=== PATIENT | female | born 1940 | race Caucasian/White ===

== ENCOUNTER 2020-05-21 10:53 | Outpatient (REF) | payer MEDICARE, SELFPAY ==
[2020-05-21 12:40] LABS: MANUAL DIFF FLAG NO
[2020-05-21 12:50] LABS: Glucose Urine UA NEG (NEG); Leukocyte Esterase Urine 1+ (NEG); Nitrite Urine NEG (NEG); Urine Blood NEG (NEG); Urine Ketones NEG (NEG); Urine Protein NEG (NEG-TRACE)
[2020-05-21 12:52] LABS: Appearance Urine CLOUDY; Color Urine YELLOW
[2020-05-21 12:56] LABS: Basophils Percent Auto 0.4 % (0-2); Eosinophils Absolute Auto 0.3 X10*3/uL (0.0-0.4); Eosinophils Percent Auto 3.4 % (0-4); Hematocrit 41.1 % (37-47); Hemoglobin 12.4 g/dl (12.0-16.0); Imm Gran Abs Auto 0.06 X10*3/uL (0.00-0.03); Imm Gran Pct Auto 0.6 % (0.0-0.4); Lymphocytes Absolute Auto 2.4 X10*3/uL (1.2-4.9); Lymphocytes Percent Auto 25.1 % (20-40); Mean Corpuscular HGB Conc 30.2 g/dl (31.0-35.0); Mean Corpuscular Hemoglobin 27.1 pg (27.0-33.0); Mean Corpuscular Volume 89.7 fL (80-98); Mean Platelet Volume 11.8 fL (9.4-12.3); Monocytes Absolute Auto 0.6 X10*3/uL (0.1-1.2); Monocytes Percent Auto 6.2 % (2-11); Neutrophils Absolute Auto 6.1 X10*3/uL (2.0-8.3); Neutrophils Percent Auto 64.3 % (45-73); Platelet Count 272 X10*3/uL (160-400); Red Blood Count 4.58 X10*6/uL (4.20-5.50); Red Cell Distribution Width 13.4 % (11.0-16.0); White Blood Count 9.4 X10*3/uL (4.8-10.8)
[2020-05-21 13:17] LABS: Albumin Level 4.1 g/dL (3.5-5.0); Anion Gap 14 (12-20); Blood Urea Nitrogen 26 mg/dL (9-16); Calcium 8.8 mg/dL (8.4-10.2); Carbon Dioxide 25 mmol/L (22-29); Chloride 107 mmol/L (96-108); Estimated Glomerular Filt Rate 41; Magnesium 2.2 mg/dL (1.6-2.6); Phosphorus 3.2 mg/dL (2.7-4.5); Potassium 4.2 mmol/l (3.3-5.1); Sodium 142 mmol/L (135-145)
[2020-05-21 13:25] LABS: Hyaline Casts Urine 0-2 /LPF; RBC Urine 0 /HPF (0); Squamous Epithelial Cell Urine 1+ /LPF
== END 2020-05-21 10:54 | disposition home or self-care (01) ==
LOC: HO.LAB 10:53
PROVIDERS: PCP Family Medicine; Visit Provider Internal Medicine Hypertension Specialist
DX: N18.30 Chronic kidney disease, stage 3 unspecified (principal); N20.0 Calculus of kidney; E21.3 Hyperparathyroidism, unspecified
CPT/HCPCS: 36415; 80051; 81001; 82040; 82310; 82565; 83735; 84100; 84520; 85025

== ENCOUNTER 2020-09-09 09:49 | Outpatient (REF) | payer MEDICARE, SELFPAY ==
--- NOTE | ~2020-09-09 | MM_ITS ---
EXAMINATION: MM SCREENING DIGITAL BREAST TOMOSYNTHESIS, BILATERAL CLINICAL INFORMATION: Screening. Asymptomatic. The lifetime risk of breast cancer based on the Tyrer-Cuzick Model is 2%. COMPARISON: Mammography: 08/14/2019, 07/25/2018, 06/16/2017 TECHNIQUE: Digital breast tomosynthesis is performed in both the craniocaudal and mediolateral oblique views along with computer-aided detection (CAD). Synthesized 2D images are generated from the tomosynthesis. FINDINGS: There are scattered areas of fibroglandular density (ACR BI-RADS breast composition Category b). There are no significant masses, abnormal calcifications, or other abnormalities. Breast tissue composition borders on predominantly fatty. There is no developing density. No significant changes. MM/MM tomosynthesis screening BI IMPRESSION: No mammographic evidence of malignancy. ASSESSMENT: BI-RADS 1: Negative RECOMMENDATION: Routine annual mammography screening. This patient's information was entered into a reminder system with a target due date for their next mammogram.
== END 2020-09-09 09:50 | disposition home or self-care (01) ==
LOC: HO.MAMMO 09:49
PROVIDERS: PCP Family Medicine; Visit Provider Family Medicine
DX: Z12.31 Encounter for screening mammogram for malignant neoplasm of breast (principal)
CPT/HCPCS: 77063; 77067

== ENCOUNTER 2021-06-30 09:31 | Outpatient (REF) | payer MEDICARE, SELFPAY ==
[2021-06-30 09:59] LABS: MANUAL DIFF FLAG NO
[2021-06-30 10:28] LABS: Basophils Percent Auto 0.3 % (0-2); Eosinophils Absolute Auto 0.4 X10*3/uL (0.0-0.4); Eosinophils Percent Auto 3.7 % (0-4); Hematocrit 40.5 % (37.0-47.0); Hemoglobin 12.3 g/dl (12.0-16.0); Imm Gran Abs Auto 0.04 X10*3/uL (0.00-0.03); Imm Gran Pct Auto 0.4 % (0.0-0.4); Lymphocytes Absolute Auto 2.5 X10*3/uL (1.2-4.9); Mean Corpuscular HGB Conc 30.4 g/dl (31.0-35.0); Mean Corpuscular Hemoglobin 27.2 pg (27.0-33.0); Mean Corpuscular Volume 89.6 fL (80.0-98.0); Monocytes Absolute Auto 0.5 X10*3/uL (0.1-1.2); Monocytes Percent Auto 5.3 % (2-11); Neutrophils Absolute Auto 5.9 x10*3/uL (2.0-8.3); Neutrophils Percent Auto 63.3 % (45-73); Platelet Count 275 X10*3/uL (160-400); Red Blood Count 4.52 X10*6/uL (4.20-5.50); Red Cell Distribution Width 13.8 % (11.0-16.0); White Blood Count 9.4 X10*3/uL (4.8-10.8)
[2021-06-30 10:49] LABS: Estimated Average Glucose 117 mg/dL; Hemoglobin A1c % 5.7 %
[2021-06-30 10:56] LABS: Alanine Aminotransferase 12 U/L (0-31); Albumin Level 4.2 g/dL (3.5-5.0); Alkaline Phosphatase 94 U/L (39-117); Anion Gap 12 (12-20); Aspartate Amino Transferase 11 U/L (5-31); Bilirubin Total 0.5 mg/dL (0.0-1.0); Blood Urea Nitrogen 29 mg/dL (9-16); Calcium 10.1 mg/dL (8.4-10.2); Carbon Dioxide 27 mmol/L (22-29); Chloride 109 mmol/L (96-108); Cholesterol 181 mg/dL; Estimated Glomerular Filt Rate 40; Glucose Random 98 mg/dL (60-115); HDL Cholesterol 52 mg/dL; LDL Cholesterol Calculated 99 mg/dl; Potassium 4.4 mmol/L (3.3-5.1); Sodium 144 mmol/L (135-145); Total Protein 7.3 g/dL (6.5-8.0); Triglycerides 153 mg/dL
[2021-06-30 11:16] LABS: TSH reflex Free T4 2.47 uIU/mL (0.32-4.0); Vitamin D 25-OH Total 37.5 ng/mL (>30)
[2021-07-01 16:00] LABS: Calcium (PTHI) 9.5 mg/dL (8.6-10.4); PTHI 40 pg/mL (14-64)
== END 2021-06-30 09:32 | disposition home or self-care (01) ==
LOC: HO.LAB 09:31
PROVIDERS: PCP Family Medicine; Visit Provider Family Medicine
DX: E03.9 Hypothyroidism, unspecified (principal); I10 Essential (primary) hypertension; N18.30 Chronic kidney disease, stage 3 unspecified
CPT/HCPCS: 36415; 80053; 80061; 82306; 83036; 83970; 84443; 85025

== ENCOUNTER 2021-07-09 10:23 | Outpatient (REF) | payer MEDICARE, SELFPAY | END 2021-07-09 10:24 | disposition home or self-care (01) | LOC: HO.MAMMO 10:23 | PROVIDERS: Visit Provider Family Medicine | DX: Z13.89 Encounter for screening for other disorder (principal) ==

== ENCOUNTER 2021-08-12 13:14 | Outpatient (REF) | payer MEDICARE, SELFPAY ==
--- NOTE | ~2021-08-12 | MM_ITS ---
EXAMINATION: BONE DENSITOMETRY CLINICAL INDICATION: Encounter for screening for osteoporosis. COMPARISON: Previous BD dated 08/08/2019 and baseline BD dated 04/14/2007. TECHNIQUE: Using a [employer] DXA System (software version: 13.1) manufactured by [employer], dual-energy x-ray absorptiometry was performed of the lumbar spine and left hip. The images are of good technical quality. Summary results are attached. FINDINGS: AP SPINE L1-L4: Current: BMD 0.985 g/cm2, Z-score 0.0, T-score -1.6, osteopenia, 3.3% decrease from previous, 10.8% increase from baseline (<5% change is not significant). Prior: BMD 1.019 g/cm2. Baseline: BMD 0.889 g/cm2. LEFT FEMUR, NECK: Current: BMD 0.887 g/cm2, Z-score 1.0, T-score -1.1, osteopenia. Prior: BMD 0.742 g/cm2. Baseline: BMD 0.731 g/cm2. LEFT FEMUR, TOTAL: Current: BMD 0.838 g/cm2, Z-score 0.6, T-score -1.3, osteopenia, 3.3% decrease from previous, 0.8% increase from baseline (<5% change is not significant). Prior: BMD 0.867 g/cm2. Baseline: BMD 0.831 g/cm2. IDENTIFIED RISK FACTORS: Early menopause, secondary osteoporosis, low calcium intake. HISTORY OF FRACTURE: None listed. MEDICATIONS: Calcium supplements or multivitamin, vitamin D. MM/XR DEXA axial skeleton IMPRESSION: 1. DIAGNOSIS: Osteopenia based on the lowest T-score value of -1.6 in the lumbar spine applying World Health Organization criteria. 2. 10-YEAR FRACTURE RISK PREDICTION, FRAX: Major osteoporotic fracture (clinical spine, forearm, hip or shoulder) 6.6%. Hip fracture 1.3%. 3. Treatment Recommendations: NOF guidelines recommend consideration for treatment in postmenopausal women and men age 50 and older presenting with the following: -A hip or vertebral (clinical or morphometric) fracture. -T-score less than or equal to -2.5 at the femoral neck or spine after appropriate evaluation to exclude secondary causes. -Low bone mass at the hip or spine and a 10-year fracture probability by FRAX of greater than or equal to 3% for hip fracture or greater than or equal to 20% for major osteoporotic fracture based on the [place] adapted WHO algorithm. 4. Other Recommendations: All treatment decisions require clinical judgment and consideration of individual patient factors, including patient preferences, comorbidities, previous drug use, risk factors not captured in the FRAX model (e.g. frailty, falls, vitamin D deficiency, increased bone turnover, interval significant decline in bone density) and possible under or overestimation of fracture risk by FRAX. Additional medical evaluation for secondary cause of low bone mineral density may be appropriate. FUTURE SCAN RECOMMENDATION: People with diagnosed cases of osteoporosis or at high risk for fracture should have regular bone mineral density tests. For patients eligible for Medicare, routine testing is allowed once every 2 years. The testing frequency can be increased to one year for patients who have rapidly progressing disease, those who are receiving or discontinuing medical therapy to restore bone mass, or have additional risk factors.
== END 2021-08-12 13:15 | disposition home or self-care (01) ==
LOC: HO.MAMMO 13:14
PROVIDERS: Visit Provider Family Medicine
DX: Z13.820 Encounter for screening for osteoporosis (principal); M85.80 Other specified disorders of bone density and structure, unspecified site; Z78.0 Asymptomatic menopausal state; Z79.899 Other long term (current) drug therapy
CPT/HCPCS: 77080

== ENCOUNTER 2021-09-10 11:59 | Outpatient (REF) | payer MEDICARE, SELFPAY ==
--- NOTE | ~2021-09-10 | MM_ITS ---
EXAMINATION: MM SCREENING DIGITAL BREAST TOMOSYNTHESIS, BILATERAL CLINICAL INFORMATION: Screening. Asymptomatic. The lifetime risk of breast cancer based on the Tyrer-Cuzick Model is 2%. COMPARISON: Mammography: 09/09/2020, 07/27/2019, 07/25/2018 TECHNIQUE: Digital breast tomosynthesis is performed in both the craniocaudal and mediolateral oblique views along with computer-aided detection (CAD). Synthesized 2D images are generated from the tomosynthesis. Additional right cleavage view is provided. FINDINGS: There are scattered areas of fibroglandular density (ACR BI-RADS breast composition Category b). Breast tissue composition borders on predominantly fatty. Background stromal markings are stable. There are no significant masses, abnormal calcifications, or other abnormalities. No significant changes. MM/MM tomosynthesis screening BI IMPRESSION: No mammographic evidence of malignancy. ASSESSMENT: BI-RADS 1: Negative RECOMMENDATION: Routine annual mammography screening. This patient's information was entered into a reminder system with a target due date for their next mammogram.
== END 2021-09-10 12:00 | disposition home or self-care (01) ==
LOC: HO.MAMMO 11:59
PROVIDERS: Visit Provider Family Medicine
DX: Z12.31 Encounter for screening mammogram for malignant neoplasm of breast (principal)
CPT/HCPCS: 77063; 77067

== ENCOUNTER 2022-11-05 13:50 | Outpatient (REF) | payer MEDICARE, SELFPAY ==
--- NOTE | ~2022-11-05 | MM_ITS ---
EXAMINATION: MM SCREENING DIGITAL BREAST TOMOSYNTHESIS, BILATERAL CLINICAL INFORMATION: Screening. Asymptomatic. The lifetime risk of breast cancer based on the Tyrer-Cuzick Model is 2%. COMPARISON: Mammography: 09/10/2021, 09/09/2020, 07/27/2019 TECHNIQUE: Digital breast tomosynthesis is performed in both the craniocaudal and mediolateral oblique views along with computer-aided detection (CAD). Synthesized 2D images are generated from the tomosynthesis. FINDINGS: There are scattered areas of fibroglandular density (ACR BI-RADS breast composition Category b). Breast tissue composition borders on predominantly fatty. No developing density or architectural abnormality. There are no significant masses, abnormal calcifications, or other abnormalities. There are scattered bilateral predominantly vascular calcifications. The axilla and skin contours are unremarkable. MM/MM tomosynthesis screening BI IMPRESSION: No mammographic evidence of malignancy. ASSESSMENT: BI-RADS 1: Negative RECOMMENDATION: Routine annual mammography screening. This patient's information was entered into a reminder system with a target due date for their next mammogram.
== END 2022-11-05 13:51 | disposition home or self-care (01) ==
LOC: HO.MAMMO 13:50
PROVIDERS: Visit Provider Family Medicine
DX: Z12.31 Encounter for screening mammogram for malignant neoplasm of breast (principal)
CPT/HCPCS: 77063; 77067

== ENCOUNTER 2023-03-15 16:19 | Outpatient (REF) | payer OTHER, SELFPAY ==
[2023-03-15 17:51] LABS: Anion Gap 13 (12-20); Blood Urea Nitrogen 26 mg/dL (9-16); Calcium 10.1 mg/dL (8.4-10.2); Carbon Dioxide 28 mmol/L (22-29); Chloride 105 mmol/L (96-108); Estimated Glomerular Filt Rate 41; Glucose Random 87 mg/dL (60-115); Sodium 142 mmol/L (135-145)
[2023-03-15 17:53] LABS: Vitamin D 25-OH Total 50.4 ng/mL (>30)
[2023-03-16 14:13] LABS: Calcium (PTHI) 9.9 mg/dL (8.6-10.4); PTHI 31 pg/mL (16-77)
== END 2023-03-15 16:20 | disposition home or self-care (01) ==
LOC: HO.LAB 16:19
PROVIDERS: PCP Family Medicine; Visit Provider Internal Medicine Hypertension Specialist
DX: N18.31 Chronic kidney disease, stage 3a (principal)
CPT/HCPCS: 36415; 80048; 82306; 83970

== ENCOUNTER 2023-08-18 13:04 | Outpatient (REF) | payer OTHER, SELFPAY ==
--- NOTE | ~2023-08-18 | XR_ITS ---
EXAMINATION: XR CHEST CLINICAL INFORMATION: Asthma, cough, wheezing, evaluate for pneumonia. COMPARISON: Chest radiograph 10/16/2018. TECHNIQUE: 2 views of the chest were obtained. FINDINGS: Normal appearance of the cardiomediastinal silhouette. Mild central peribronchial cuffing and minimal diffuse interstitial prominence are not significantly changed. No focal consolidation, pleural effusion or pneumothorax. Thoracic spondylosis. No acute osseous findings. XR/XR chest 2V IMPRESSION: Mild chronic interstitial prominence which is nonspecific and could be seen with small airways disease.
== END 2023-08-18 13:05 | disposition home or self-care (01) ==
LOC: HO.XRAY 13:04
PROVIDERS: PCP Family Medicine; Visit Provider Family Medicine
DX: R05.1 Acute cough (principal); R06.2 Wheezing
CPT/HCPCS: 71046

== ENCOUNTER 2023-09-10 13:12 | Outpatient (REF) | payer OTHER, SELFPAY ==
--- NOTE | ~2023-09-10 | MM_ITS ---
EXAMINATION: BONE DENSITOMETRY CLINICAL INDICATION: Other specified disorders of bone density and structure, unspecified site. COMPARISON: Previous BD dated 08/12/2021 and baseline BD dated 04/14/2007. TECHNIQUE: Using a [employer] DXA System (software version: 13.1) manufactured by [employer], dual-energy x-ray absorptiometry was performed of the lumbar spine and left hip. The images are of good technical quality. Summary results are attached. FINDINGS: LEFT FEMUR, NECK: Current: BMD 0.742 g/cm2, Z-score 0.1, T-score -2.1, osteopenia. Prior: BMD 0.887 g/cm2. Baseline: BMD 0.731 g/cm2. LEFT FEMUR, TOTAL: Current: BMD 0.811 g/cm2, Z-score 0.6, T-score -1.6, osteopenia, 3.2% decrease from previous, 2.4% decrease from baseline (<5% change is not significant). Prior: BMD 0.838 g/cm2. Baseline: BMD 0.831 g/cm2. AP SPINE L1-L4: Current: BMD 1.003 g/cm2, Z-score 0.4, T-score -1.5, osteopenia, 1.8% increase from previous, 12.8% increase from baseline (<5% change is not significant). Prior: BMD 0.985 g/cm2. Baseline: BMD 0.889 g/cm2. IDENTIFIED RISK FACTORS: Early menopause, secondary osteoporosis, low body weight, low calcium intake. HISTORY OF FRACTURE: None listed. MEDICATIONS: Calcium supplements or multivitamin, vitamin D. MM/XR DEXA axial skeleton IMPRESSION: 1. DIAGNOSIS: Osteopenia based on the lowest T-score value of -2.1 in the femoral neck applying World Health Organization criteria. 2. 10-YEAR FRACTURE RISK PREDICTION, FRAX: Major osteoporotic fracture (clinical spine, forearm, hip or shoulder) 9.8%. Hip fracture 3.0%. 3. Treatment Recommendations: NOF guidelines recommend consideration for treatment in postmenopausal women and men age 50 and older presenting with the following: -A hip or vertebral (clinical or morphometric) fracture. -T-score less than or equal to -2.5 at the femoral neck or spine after appropriate evaluation to exclude secondary causes. -Low bone mass at the hip or spine and a 10-year fracture probability by FRAX of greater than or equal to 3% for hip fracture or greater than or equal to 20% for major osteoporotic fracture based on the [place] adapted WHO algorithm. 4. Other Recommendations: All treatment decisions require clinical judgment and consideration of individual patient factors, including patient preferences, comorbidities, previous drug use, risk factors not captured in the FRAX model (e.g. frailty, falls, vitamin D deficiency, increased bone turnover, interval significant decline in bone density) and possible under or overestimation of fracture risk by FRAX. Additional medical evaluation for secondary cause of low bone mineral density may be appropriate. FUTURE SCAN RECOMMENDATION: People with diagnosed cases of osteoporosis or at high risk for fracture should have regular bone mineral density tests. For patients eligible for Medicare, routine testing is allowed once every 2 years. The testing frequency can be increased to one year for patients who have rapidly progressing disease, those who are receiving or discontinuing medical therapy to restore bone mass, or have additional risk factors.
== END 2023-09-10 13:13 | disposition home or self-care (01) ==
LOC: HO.MAMMO 13:12
PROVIDERS: PCP Family Medicine; Visit Provider Family Medicine
DX: Z13.820 Encounter for screening for osteoporosis (principal); M85.89 Other specified disorders of bone density and structure, multiple sites; Z78.0 Asymptomatic menopausal state
CPT/HCPCS: 77080

== ENCOUNTER 2023-10-21 11:33 | Outpatient (AMB) | payer OTHER, SELFPAY ==
[2023-10-21 11:36] VITALS: BP 152/70; PULSE 80; O2SAT 96
--- NOTE | 2023-10-21 11:36 | HO.NEPHOV_ITS ---
HPI HPI Comments History of Present Illness Details Elderly woman with a history of longstanding hypertension nephrolithiasis. She is here for regular follow-up. Today she was accompanied by family members. No new complaints. No urinary symptoms. She is compliant with all her medications. [facility] Medical History (Updated 10/21/23 @ 12:04 by Jae Avina MD) History of kidney stones Osteoporosis Bilateral cataracts Asthma Chronic kidney disease, stage 3 Hyperparathyroidism Hypercholesterolemia HTN (hypertension) History of CVA (cerebrovascular accident) Family History (Updated 10/21/23 @ 12:04 by Jae Avina MD) Other HTN (hypertension) History of kidney stones Social History (Updated 10/21/23 @ 11:39 by Sophia Ryder) Alcohol intake: never Use of substances other than those prescribed or required for medical reasons: No Vital Signs 10/21/23 11:36 10/21/23 12:05 Weight 169 lb BP 152/70 H 140/60 H Blood Pressure Location Lt brachial Lt brachial Position Sitting Sitting Pulse 80 Pulse Source Pulse Oximeter Pulse Oximetry (%) 96 Oxygen Delivery Method Room Air Physical Exam Vital Signs: Last Vital Signs Pulse 80 10/21/23 11:36 BP 152/70 H 10/21/23 11:36 Pulse Ox 96 10/21/23 11:36 Oxygen Delivery Method Room Air 10/21/23 11:36 Const General: comfortable Nutritional Appearance: well nourished Orientation/consciousness: patient oriented x3 HEENT Head: No normal to inspection Mouth: moist mucous membranes Neck Neck: Yes supple and Yes no JVD Resp Auscultation: clear to auscultation bilaterally, no rales and rub present Cardio Jugular venous distension: no JVD Palpation: no palpable S3 and no palpable S4 Heart sounds: no rubs GI Palpation (GI): Soft to palpation and nontender Percussion: No Fluid wave present General: Yes no CVA tenderness Back/Spine/Pelvis Back: no CVA tenderness Skin General skin exam: no rashes or lesions noted Neuro General: patient oriented x3 Extrem General: Yes no pedal edema and No clubbing Assessment & Plan Assessment & Plan (1) Chronic kidney disease, stage 3: Code(s): N18.30 - Chronic kidney disease, stage 3 unspecified Plan Elderly woman with a history of stage III CKD in a setting of longstanding hypertension nephrolithiasis. She has had hyperparathyroidism with elevated serum calcium in the past. Repeat renal panel in order along with intact PTH and phosphorus levels. She should stay on low-sodium diet. Increase p.o. fluid. Blood pressure be maintained less than 130/80 mm Hg. No changes were made to medications and further workup will be based on the above reason investigations. Orders: Orders Phosphorus Today N18.30 - Chronic kidney disease, stage 3 unspecified Basic Metabolic Panel Today N18.30 - Chronic kidney disease, stage 3 unspecified Complete Blood Count no Diff Today N18.30 - Chronic kidney disease, stage 3 unspecified Parathyroid Hormone Intact Today N18.30 - Chronic kidney disease, stage 3 unspecified Coding Level of Care Code Est Pt Level 4 (57707) Diagnoses Chronic kidney disease, stage 3 N18.30 Results Reviewed Nephrology Results: Hgb 12.3 g/dl (12.0-16.0) 06/30/21 WBC 9.4 X10*3/uL (4.8-10.8) 06/30/21 Plt Count 275 X10*3/uL (160-400) 06/30/21 Sodium 142 mmol/L (135-145) 03/15/23 Potassium 4.0 mmol/L (3.3-5.1) 03/15/23 Chloride 105 mmol/L (96-108) 03/15/23 Carbon Dioxide 28 mmol/L (22-29) 03/15/23 BUN 26 mg/dL (9-16) H 03/15/23 Creatinine 1.26 mg/dL (0.5-1.4) 03/15/23 Calcium 10.1 mg/dL (8.4-10.2) 03/15/23 Phosphorus 3.2 mg/dL (2.7-4.5) 05/21/20 PTH Intact 31 pg/mL (16-77) 03/15/23 Urine Protein NEG MG/DL (NEG-TRACE) 05/21/20
[2023-10-21 12:05] VITALS: BP 140/60
== END 2023-10-21 12:05 | disposition home or self-care (01) ==
PROVIDERS: PCP Family Medicine; Visit Provider Internal Medicine Hypertension Specialist
DX: N18.30 Chronic kidney disease, stage 3 unspecified (principal)
CPT/HCPCS: 99214

== ENCOUNTER 2023-10-21 11:33 | Outpatient (REF) | payer OTHER, SELFPAY ==
[2023-10-21 14:00] LABS: Hematocrit 39.6 % (37.0-47.0); Hemoglobin 12.5 g/dl (12.0-16.0); Mean Corpuscular HGB Conc 31.6 g/dl (31.0-35.0); Mean Corpuscular Hemoglobin 27.7 pg (27.0-33.0); Mean Corpuscular Volume 87.6 fL (80.0-98.0); Mean Platelet Volume 11.2 fL (9.4-12.3); Platelet Count 264 X10*3/uL (160-400); Red Blood Count 4.52 X10*6/uL (4.20-5.50); Red Cell Distribution Width 14.2 % (11.0-16.0); White Blood Count 12.2 X10*3/uL (4.8-10.8)
[2023-10-21 14:26] LABS: Anion Gap 17 (12-20); Blood Urea Nitrogen 27 mg/dL (9-16); Calcium 9.9 mg/dL (8.4-10.2); Carbon Dioxide 26 mmol/L (22-29); Chloride 104 mmol/L (96-108); Estimated Glomerular Filt Rate 52; Glucose Random 86 mg/dL (60-115); Phosphorus 4.1 mg/dL (2.7-4.5); Potassium 4.6 mmol/L (3.3-5.1); Sodium 142 mmol/L (135-145)
[2023-10-21 14:30] LABS: Parathyroid Hormone Intact 47.4 pg/mL (8.7-77.1)
== END 2023-10-21 11:34 | disposition home or self-care (01) ==
LOC: HO.LAB 11:33
PROVIDERS: PCP Family Medicine; Visit Provider Internal Medicine Hypertension Specialist
DX: I12.9 Hypertensive chronic kidney disease with stage 1 through stage 4 chronic kidney disease, or unspecified chronic kidney disease (principal); N20.0 Calculus of kidney; N18.30 Chronic kidney disease, stage 3 unspecified
CPT/HCPCS: 36415; 80048; 83970; 84100; 85027; 99212

== ENCOUNTER 2023-11-11 09:56 | Outpatient (REF) | payer OTHER, SELFPAY | END 2023-11-11 09:57 | disposition home or self-care (01) | LOC: HO.MAMMO 09:56 | PROVIDERS: PCP Family Medicine; Visit Provider Family Medicine | DX: Z12.31 Encounter for screening mammogram for malignant neoplasm of breast (principal) | CPT/HCPCS: 77063; 77067 ==

== ENCOUNTER → 2023-11-11 10:00 | Outpatient (BNV) | payer OTHER, SELFPAY | PROVIDERS: PCP Family Medicine; Visit Provider Radiology Diagnostic Radiology | DX: Z12.31 Encounter for screening mammogram for malignant neoplasm of breast (principal) | CPT/HCPCS: 77063; 77067 ==

== ENCOUNTER 2023-11-17 08:59 | Outpatient (REF) | payer OTHER, SELFPAY ==
[2023-11-17 09:13] LABS: MANUAL DIFF FLAG NO
[2023-11-17 09:55] LABS: Basophils Percent Auto 0.4 % (0-2); Eosinophils Absolute Auto 0.3 X10*3/uL (0.0-0.4); Eosinophils Percent Auto 3.2 % (0-4); Hematocrit 40.5 % (37.0-47.0); Hemoglobin 12.5 g/dl (12.0-16.0); Imm Gran Abs Auto 0.05 X10*3/uL (0.00-0.03); Imm Gran Pct Auto 0.5 % (0.0-0.4); Lymphocytes Absolute Auto 2.8 X10*3/uL (1.2-4.9); Lymphocytes Percent Auto 26.6 % (20-40); Mean Corpuscular HGB Conc 30.9 g/dl (31.0-35.0); Mean Corpuscular Hemoglobin 27.7 pg (27.0-33.0); Mean Corpuscular Volume 89.6 fL (80.0-98.0); Mean Platelet Volume 11.4 fL (9.4-12.3); Monocytes Absolute Auto 0.7 X10*3/uL (0.1-1.2); Monocytes Percent Auto 6.6 % (2-11); Neutrophils Absolute Auto 6.7 x10*3/uL (2.0-8.3); Neutrophils Percent Auto 62.7 % (45-73); Platelet Count 267 X10*3/uL (160-400); Red Blood Count 4.52 X10*6/uL (4.20-5.50); White Blood Count 10.6 X10*3/uL (4.8-10.8)
[2023-11-17 10:10] LABS: Estimated Average Glucose 123 mg/dL; Hemoglobin A1c % 5.9 % (<6.0)
[2023-11-17 10:36] LABS: Cholesterol 167 mg/dL (<200); HDL Cholesterol 68 mg/dL (>40); LDL Cholesterol Calculated 84 mg/dL (<100); Triglycerides 78 mg/dL (<150)
[2023-11-17 10:50] LABS: Reflex LDLD? No
[2023-11-17 10:52] LABS: TSH reflex Free T4 1.64 uIU/mL (0.32-4.0)
== END 2023-11-17 09:00 | disposition home or self-care (01) ==
LOC: HO.LAB 08:59
PROVIDERS: PCP Family Medicine; Visit Provider Family Medicine
DX: E03.9 Hypothyroidism, unspecified (principal); E78.00 Pure hypercholesterolemia, unspecified
CPT/HCPCS: 36415; 80061; 83036; 84443; 85025

== ENCOUNTER 2024-02-14 12:32 | Outpatient (REF) | payer OTHER, SELFPAY ==
[2024-02-14 13:41] LABS: Hematocrit 39.4 % (37.0-47.0); Hemoglobin 12.2 g/dl (12.0-16.0); Mean Corpuscular Hemoglobin 27.7 pg (27.0-33.0); Mean Corpuscular Volume 89.5 fL (80.0-98.0); Mean Platelet Volume 11.6 fL (9.4-12.3); Platelet Count 246 X10*3/uL (160-400); Red Cell Distribution Width 13.9 % (11.0-16.0); White Blood Count 9.5 X10*3/uL (4.8-10.8)
[2024-02-14 14:07] LABS: Alanine Aminotransferase 10 U/L (0-31); Albumin Level 4.2 g/dL (3.5-5.0); Alkaline Phosphatase 89 U/L (39-117); Anion Gap 12 (12-20); Aspartate Amino Transferase 10 U/L (5-31); Bilirubin Total 0.3 mg/dL (0.0-1.0); Blood Urea Nitrogen 30 mg/dL (9-16); Calcium 9.7 mg/dL (8.4-10.2); Carbon Dioxide 27 mmol/L (22-29); Chloride 107 mmol/L (96-108); Estimated Glomerular Filt Rate 37; Glucose Random 95 mg/dL (60-115); Potassium 4.3 mmol/L (3.3-5.1); Sodium 142 mmol/L (135-145); Total Protein 7.3 g/dL (6.5-8.0)
[2024-02-14 14:24] LABS: Free T4 (Free Thyroxine) 1.06 ng/dL (0.71-1.85); Thyroid Stimulating Hormone 0.85 uIU/mL (0.32-4.0)
== END 2024-02-14 12:33 | disposition home or self-care (01) ==
LOC: HO.LAB 12:32
PROVIDERS: PCP Family Medicine; Visit Provider Student in an Organized Health Care Education/Training Program
DX: R53.83 Other fatigue (principal)
CPT/HCPCS: 36415; 80053; 84439; 84443; 85027

== ENCOUNTER 2024-02-21 11:38 | Outpatient (AMB) | payer OTHER, SELFPAY ==
[2024-02-21 11:39] VITALS: BP 136/70; PULSE 71; O2SAT 96
--- NOTE | 2024-02-21 11:39 | HO.NEPHOV_ITS ---
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 Associate Professor Of Archaeology Name: Carla [id number] Accompanied by: Son Allergies ciprofloxacin [From Cipro] Allergy (Severe, Verified 02/21/24 11:43) RASH Iodinated Contrast Media [IV Dye, Iodine Containing] Allergy (Intermediate, Verified 02/21/24 11:43) RASH, ITCHY penicillin V Allergy (Mild, Verified 02/21/24 11:43) Unknown Medication List - Last Reconciled 02/21/24 by Jae Avina MD albuterol sulfate 90 mcg/actuation inhalation aspirin 81 mg PO DAILY atorvastatin 10 mg PO DAILY cholecalciferol (vitamin D3) (Vitamin D3) 25 mcg PO DAILY levothyroxine 50 mcg PO DAILY losartan 50 mg PO DAILY metoprolol succinate ER 50 mg PO DAILY HPI Comments Details: Elderly woman with a history of longstanding hypertension nephrolithiasis. She is here for regular follow-up. Today she was accompanied by family members. No new complaints. No urinary symptoms. She is compliant with all her medications. Interpretor service was used [facility] Medical History (Updated 10/21/23 @ 12:04 by Jae Avina MD) History of kidney stones Osteoporosis Bilateral cataracts Asthma Chronic kidney disease, stage 3 Hyperparathyroidism Hypercholesterolemia HTN (hypertension) History of CVA (cerebrovascular accident) Family History Other HTN (hypertension) History of kidney stones Social History Alcohol intake: never Physical Exam Vital Signs: Last Vital Signs Pulse 71 02/21/24 11:39 BP 136/70 02/21/24 11:39 Pulse Ox 96 02/21/24 11:39 Oxygen Delivery Method Room Air 02/21/24 11:39 Const General: comfortable; No acute distress Orientation/consciousness: patient oriented x3 Eyes General: appearance normal, both eyes and all related structures Visual Person: normal visual person by confrontation Neck Neck: Yes supple and Yes no JVD Resp Effort & Inspection: normal respiratory effort and respiratory effort not decreased Auscultation: rhonchi Cardio Palpation: no palpable S3 and no palpable S4 Heart sounds: no rubs GI Inspection: Yes normal to inspection Palpation (GI): Soft to palpation Percussion: Yes normal to percussion Auscultation: normal bowel sounds General: Yes no CVA tenderness Back/Spine/Pelvis Back: no CVA tenderness Skin General skin exam: no petechiae and no purpura Neuro General: patient oriented x3 and no focal motor deficits Extrem General: No clubbing and No edema Results Reviewed Nephrology Results: Hgb 12.2 g/dl (12.0-16.0) 02/14/24 WBC 9.5 X10*3/uL (4.8-10.8) 02/14/24 Plt Count 246 X10*3/uL (160-400) 02/14/24 Sodium 142 mmol/L (135-145) 02/14/24 Potassium 4.3 mmol/L (3.3-5.1) 02/14/24 Chloride 107 mmol/L (96-108) 02/14/24 Carbon Dioxide 27 mmol/L (22-29) 02/14/24 BUN 30 mg/dL (9-16) H 02/14/24 Creatinine 1.36 mg/dL (0.5-1.4) 02/14/24 Calcium 9.7 mg/dL (8.4-10.2) 02/14/24 Phosphorus 4.1 mg/dL (2.7-4.5) 10/21/23 PTH Intact 47.4 pg/mL (8.7-77.1) 10/21/23 Urine Protein Negative mg/dL (Neg-Trace) 02/21/24 Urine Creatinine 79.76 mg/dL 02/21/24 Assessment & Plan Assessment & Plan (1) Chronic kidney disease, stage 3: Code(s): N18.30 - Chronic kidney disease, stage 3 unspecified Category: Medical (2) Hyperparathyroidism: Code(s): E21.3 - Hyperparathyroidism, unspecified Category: Medical (3) History of kidney stones: Comment: surgery for removal of stones in [place] Code(s): Z87.442 - Personal history of urinary calculi Category: Medical Plan Elderly woman with a history of stage III CKD in a setting of longstanding hypertension nephrolithiasis. She has had hyperparathyroidism with elevated serum calcium in the past. She should stay on low-sodium diet. Increase p.o. fluid. Blood pressure be maintained less than 130/80 mm Hg. Orders: Orders Creatinine Urine Today E21.3 - Hyperparathyroidism, unspecified, N18.30 - Chronic kidney disease, stage 3 unspecified, Z87.442 - Personal history of urinary calculi Total Protein Urine Random Today E21.3 - Hyperparathyroidism, unspecified, N18.30 - Chronic kidney disease, stage 3 unspecified, Z87.442 - Personal history of urinary calculi Parathyroid Hormone Intact 4 Months E21.3 - Hyperparathyroidism, unspecified, N18.30 - Chronic kidney disease, stage 3 unspecified, Z87.442 - Personal history of urinary calculi UA and rflx microscopic Today E21.3 - Hyperparathyroidism, unspecified, N18.30 - Chronic kidney disease, stage 3 unspecified, Z87.442 - Personal history of urinary calculi Basic Metabolic Panel 4 Months E21.3 - Hyperparathyroidism, unspecified, N18.30 - Chronic kidney disease, stage 3 unspecified, Z87.442 - Personal history of urinary calculi Coding Level of Care Code Est Pt Level 4 (07353) Diagnoses Chronic kidney disease, stage 3 N18.30 Hyperparathyroidism E21.3 History of kidney stones Z87.442
== END 2024-02-21 11:56 | disposition home or self-care (01) ==
PROVIDERS: PCP Family Medicine; Visit Provider Internal Medicine Hypertension Specialist
DX: N18.30 Chronic kidney disease, stage 3 unspecified (principal); E21.3 Hyperparathyroidism, unspecified; Z87.442 Personal history of urinary calculi
CPT/HCPCS: 99214

== ENCOUNTER 2024-02-21 12:27 | Outpatient (REF) | payer OTHER, SELFPAY ==
[2024-02-21 13:28] LABS: Appearance Urine Clear; Color Urine Yellow; Glucose Urine UA Negative (Negative); Leukocyte Esterase Urine Moderate (2+) (Negative); Nitrite Urine Negative (Negative); PH 5.5 (5.0-9.0); Specific Gravity - Urine 1.015 (1.005-1.025); UMIC TRIGGER UA YES; Urine Blood Negative (Negative); Urine Ketones Negative (Negative); Urine Protein Negative (Neg-Trace)
[2024-02-21 13:35] LABS: Bacteria Urine None Seen (None Seen); Hyaline Casts Urine 0-2 /LPF (0-2); RBC Urine 0-2 /HPF (0-2)
[2024-02-21 14:42] LABS: Creatinine Urine 79.76 mg/dL; Total Protein Urine Random < 7 mg/dL (<12)
== END 2024-02-21 12:28 | disposition home or self-care (01) ==
LOC: HO.10HDL 12:27
PROVIDERS: Visit Provider Internal Medicine Hypertension Specialist
DX: I12.9 Hypertensive chronic kidney disease with stage 1 through stage 4 chronic kidney disease, or unspecified chronic kidney disease (principal); N18.30 Chronic kidney disease, stage 3 unspecified; E21.3 Hyperparathyroidism, unspecified; Z87.442 Personal history of urinary calculi
CPT/HCPCS: 81001; 82570; 84156; 99212

== ENCOUNTER 2024-06-19 11:04 | Outpatient (AMB) | payer OTHER, SELFPAY ==
[2024-06-19 11:08] VITALS: BP 150/72; PULSE 77; O2SAT 93
--- NOTE | 2024-06-19 11:08 | HO.NEPHOV_ITS ---
Vital Signs 06/19/24 11:08 06/19/24 11:16 Weight 174 lb BP 150/72 H 140/80 H Blood Pressure Location Rt brachial Rt brachial Position Sitting Sitting Pulse 77 Pulse Source Pulse Oximeter Pulse Oximetry (%) 93 Oxygen Delivery Method Room Air Intake Visit Reasons: CKD STG3/ Conf Electric Tape Slitter Required: Yes Electric Tape Slitter Name: [id number] [place] Accompanied by: Son Allergies ciprofloxacin [From Cipro] Allergy (Severe, Verified 06/19/24 11:10) RASH Iodinated Contrast Media [IV Dye, Iodine Containing] Allergy (Intermediate, Verified 06/19/24 11:10) RASH, ITCHY penicillin V Allergy (Mild, Verified 06/19/24 11:10) Unknown Medication List - Last Reconciled 06/19/24 by Jae Avina MD albuterol sulfate 90 mcg/actuation inhalation aspirin 81 mg PO DAILY atorvastatin 10 mg PO DAILY cholecalciferol (vitamin D3) (Vitamin D3) 25 mcg PO DAILY levothyroxine 50 mcg PO DAILY losartan 100 mg PO DAILY metoprolol succinate ER 50 mg PO DAILY HPI Comments Details: Elderly woman with a history of longstanding hypertension nephrolithiasis. She is here for regular follow-up. Today she was accompanied by family members. No new complaints. No urinary symptoms. She is compliant with all her medications. Interpretor service was used [facility] Medical History (Updated 10/21/23 @ 12:04 by Jae Avina MD) History of kidney stones Osteoporosis Bilateral cataracts Asthma Chronic kidney disease, stage 3 Hyperparathyroidism Hypercholesterolemia HTN (hypertension) History of CVA (cerebrovascular accident) Family History Other HTN (hypertension) History of kidney stones Social History Alcohol intake: never Physical Exam Vital Signs: Last Vital Signs Pulse 77 06/19/24 11:08 BP 140/80 H 06/19/24 11:16 Pulse Ox 93 06/19/24 11:08 Oxygen Delivery Method Room Air 06/19/24 11:08 Comfortable Neck supple no JVD. Lungs entry equal no rales. Heart S1-S2 heard no gallop or rub. Abdomen soft nontender. Neuro alert awake oriented. No asterixis. Extremities no edema. Results Reviewed Nephrology Results: Hgb 12.2 g/dl (12.0-16.0) 02/14/24 WBC 9.5 X10*3/uL (4.8-10.8) 02/14/24 Plt Count 246 X10*3/uL (160-400) 02/14/24 Sodium 142 mmol/L (135-145) 02/14/24 Potassium 4.3 mmol/L (3.3-5.1) 02/14/24 Chloride 107 mmol/L (96-108) 02/14/24 Carbon Dioxide 27 mmol/L (-) 02/14/24 BUN 30 mg/dL (9-16) H 02/14/24 Creatinine 1.36 mg/dL (0.5-1.4) 02/14/24 Calcium 9.7 mg/dL (8.4-10.2) 02/14/24 Phosphorus 4.1 mg/dL (2.7-4.5) 10/21/23 PTH Intact 47.4 pg/mL (8.7-77.1) 10/21/23 Urine Protein Negative mg/dL (Neg-Trace) 02/21/24 Urine Creatinine 79.76 mg/dL 02/21/24 Assessment & Plan Assessment & Plan (1) Chronic kidney disease, stage 3: Code(s): N18.30 - Chronic kidney disease, stage 3 unspecified Category: Medical (2) Hyperparathyroidism: Code(s): E21.3 - Hyperparathyroidism, unspecified Category: Medical (3) History of kidney stones: Comment: surgery for removal of stones in [place] Code(s): Z87.442 - Personal history of urinary calculi Category: Medical Plan Elderly woman with a history of stage III CKD in a setting of longstanding hypertension nephrolithiasis. She has had hyperparathyroidism with elevated serum calcium in the past. She should stay on low-sodium diet. Increase p.o. fluid. Blood pressure be maintained less than 130/80 mm Hg. Orders: Orders Basic Metabolic Panel 4 Months N18.30 - Chronic kidney disease, stage 3 unspecified Complete Blood Count Auto Diff 4 Months N18.30 - Chronic kidney disease, stage 3 unspecified Coding Level of Care Code Est Pt Level 4 (72699) Diagnoses Chronic kidney disease, stage 3 N18.30 Hyperparathyroidism E21.3 History of kidney stones Z87.442
[2024-06-19 11:16] VITALS: BP 140/80
== END 2024-06-19 11:18 | disposition home or self-care (01) ==
PROVIDERS: PCP Family Medicine; Visit Provider Internal Medicine Hypertension Specialist
DX: N18.30 Chronic kidney disease, stage 3 unspecified (principal); E21.3 Hyperparathyroidism, unspecified; Z87.442 Personal history of urinary calculi
CPT/HCPCS: 99214

== ENCOUNTER → 2024-06-19 11:04 | Outpatient (BNVA) | payer OTHER, SELFPAY | PROVIDERS: PCP Family Medicine; Visit Provider Internal Medicine Hypertension Specialist | DX: N18.30 Chronic kidney disease, stage 3 unspecified (principal); I12.9 Hypertensive chronic kidney disease with stage 1 through stage 4 chronic kidney disease, or unspecified chronic kidney disease; E21.3 Hyperparathyroidism, unspecified; Z87.442 Personal history of urinary calculi | CPT/HCPCS: 99212 ==

== ENCOUNTER 2024-10-05 10:23 | Outpatient (REF) | payer OTHER, SELFPAY ==
[2024-10-05 10:41] LABS: MANUAL DIFF FLAG NO
[2024-10-05 11:11] LABS: Basophils Absolute Auto 0.1 X10*3/uL (0.0-0.2); Basophils Percent Auto 0.5 % (0-2); Eosinophils Absolute Auto 0.3 X10*3/uL (0.0-0.4); Eosinophils Percent Auto 3.1 % (0-4); Hematocrit 39.9 % (37.0-47.0); Hemoglobin 12.6 g/dl (12.0-16.0); Imm Gran Abs Auto 0.07 X10*3/uL (0.00-0.03); Imm Gran Pct Auto 0.7 % (0.0-0.4); Lymphocytes Absolute Auto 2.7 X10*3/uL (1.2-4.9); Lymphocytes Percent Auto 25.9 % (20-40); Mean Corpuscular HGB Conc 31.6 g/dl (31.0-35.0); Mean Corpuscular Hemoglobin 27.5 pg (27.0-33.0); Mean Corpuscular Volume 87.1 fL (80.0-98.0); Mean Platelet Volume 10.5 fL (9.4-12.3); Monocytes Absolute Auto 0.6 X10*3/uL (0.1-1.2); Monocytes Percent Auto 5.3 % (2-11); Neutrophils Absolute Auto 6.8 x10*3/uL (2.0-8.3); Neutrophils Percent Auto 64.5 % (45-73); Platelet Count 302 X10*3/uL (160-400); Red Blood Count 4.58 X10*6/uL (4.20-5.50); Red Cell Distribution Width 13.3 % (11.0-16.0); White Blood Count 10.6 X10*3/uL (4.8-10.8)
[2024-10-05 11:19] LABS: Estimated Average Glucose 120 mg/dL; Hemoglobin A1c % 5.8 % (<6.0); Total Hemoglobin (HGBA1C) 3404.4954 umol/L
[2024-10-05 11:46] LABS: Anion Gap 13 (12-20); Blood Urea Nitrogen 41 mg/dL (9-16); Calcium 9.3 mg/dL (8.4-10.2); Carbon Dioxide 27 mmol/L (22-29); Chloride 106 mmol/L (96-108); Estimated Glomerular Filt Rate 34; Glucose Random 98 mg/dL (60-115); Potassium 4.5 mmol/L (3.3-5.1); Sodium 141 mmol/L (135-145)
[2024-10-05 11:48] LABS: Parathyroid Hormone Intact 106.8 pg/mL (8.7-77.1)
[2024-10-05 11:50] LABS: Cholesterol 181 mg/dL (<200); HDL Cholesterol 60 mg/dL (>40); LDL Cholesterol Calculated 93 mg/dL (<100); Triglycerides 143 mg/dL (<150)
[2024-10-05 12:04] LABS: TSH reflex Free T4 1.59 uIU/mL (0.32-4.0)
[2024-10-05 12:49] LABS: Reflex LDLD? No
--- OUTSIDE RECORDS SUMMARY | 2024-10-05 12:58 | XMS_ITS | Data Portability ---
Author Organization [facility] Address [address] [place] [id number] Care Team Providers Care Rail Layer Name Role Phone HIM CCA OTHER Assessment Encounter Date Assessment Date Assessment LastModified by Organization Details LastModified Time 11/23/2023 11/23/2023 I provided real -time medical direction via phone for this encounter and was available for additional phone-based assistance as needed. I have reviewed and agree with the Assessment and Plan as documented by the Hat Mender. Patient given the opportunity to ask questions. Our service contacted for an assessment of: foot rash As per above, patient with several weeks of having an itchy feeling between toes on the left foot. Also describes some redness there. Denies any other rashes. Has had this before and it responded to OTC lotrimin Per science and operations officer on the scene, VSS. Please see uploaded pictures. Impression: Tenia pedis Plan: Use Lotrimin or another OTC cream/spray for this and keep feet clean and dry. We discussed the diagnostic uncertainty of home visits and the risk associated with this. In this case, the patient and I felt this to be an acceptable and reasonable amount of risk given the benefit of avoiding an ED visit. We discussed the need to seek care urgently/emergentl y in the setting of any new or worsening serious symptoms, particularly fever chills lightheadedness altered mental status [email or web address] Not available 11/23/2023 16:54:27 Plan of Treatment Reminders Order Date Submit Date Provider Last Modified By Organization Details Last Modified Time Details Appointments None recorded. Lab None recorded. Referral None recorded. Procedures None recorded. Surgeries None recorded. Imaging None recorded. Medication Orders Lotrimin AF (clotrimaz ole) 1 % topical cream 2023 024 [email or web address] Not available 16:52:11 Patient TargetsNo targets recorded. Patient InstructionsNo instructions recorded. Reason for Referral None Reported. Medical Equipment None Reported. Medications Name Sig Start Date Stop Date Status Note LastModified by Organization Details LastModified Time losartan 50 mg tablet TOME KINSEY TABLETA TODOS LOS D active Not Available Not Available No t Available atorvastatin 10 mg tablet TOME KINSEY TABLETA POR V A ORAL AL ACOSTARSE active Not Available Not Available No t Available azithromycin 250 mg tablet TOME 2 TABLETAS V A ORAL HOY, LUEGO TOME 1 TABLETA DIARIAMENTE SANDY 4 D SEG N LAS INDICACIONE S active Not Available Not Available No t Available metoprolol succinate ER 50 mg tablet,exten ded release 24 hr TOME KINSEY TABLETA TODOS LOS D active Not Available Not Available No t Available prednisone 20 mg tablet TOME KINSEY TABLETA POR V A ORAL CADA MA VIKRAM POR 5 D active Not Available Not Available N ot Available aspirin 81 mg tablet,delay ed release TOME KINSEY TABLETA TODOS LOS D active Not Available Not Available No t Available lorazepam 0.5 mg tablet TAKE 1 TABLET BY MOUTH ONCE DAILY NEEDED FOR SEVERE ANXIETY, PANIC ATTACK, OR TRAVEL active Not Available Not Available No t Available levothyroxin e 50 mcg tablet TOME KINSEY TABLETA TODOS LOS D active Not Available Not Available No t Available Lotrimin AF (clotrimazol e) 1 % topical cream APPLY TO THE AFFECTED AND SURROUNDING AREAS OF SKIN BY TOPICAL ROUTE 2 TIMES PER DAY IN THE MORNING AND EVENING 2023 active Not Available Not Available Not Avai lable albuterol sulfate HFA 90 mcg/actuatio n aerosol inhaler INHALE 2 PUFFS EVERY 4 HOURS NEEDED FOR WHEEZING OR ASTHMA SYMPTOMS. MAXIMUM DAILY DOSE 8 PUFFS active Not Available Not Available No t Available Vitamin D3 25 mcg (1,000 unit) tablet TOME KINSEY TABLETA POR V A ORAL A DIARIO active Not Available Not Available No t Available Vitals Date Recorded Body temperature Respiratory rate Heart rate Oxygen saturation Oxygen saturation in Arterial blood by Pulse oximetry Systolic blood pressure Diastolic blood pressure Provider Name and Address Organization Details Last Updated DateTime 4 98.6 [degF] 16 /min 63 /min 98 % 98 % 128 mm[Hg] 78 mm[Hg] Not Available [facility] - production 4 16:48:18 Social History None recorded. Functional Status None recorded. Mental Status None recorded. Family History Nothing Reported. Medical History No medical history recorded. Gynecological HistoryNo gynecological history recorded. Obstetrics History GPAL:G 0 P 0 0 0 0 Past Encounters Encounter ID Performer Location Encounter Start Date Encounter Closed Date Diagnosis/Indication Diagnosis SNOMED-CT Code Diagnosis ICD10 Code Diagnosis Note [id number] Phyllis Jordan MD [address] [phone] 11/23/2023 16:47:52 11/23/2023 20:03:23 Taylor aquino [id number] B35.3 Health Concerns Section Related Observation LastModified by Organization Detai ls LastModified Time None Recorded Concern Status LastModified by Organization Details LastModified Time None Recorded Advance Directives Directive None Recorded Payers Encounter Date Sequence Insurance Name Policy Number Policy [place] Covered Member ID [place] Member ID Guarantor Name 11/23/2023 1 [facility] - DOS ON OR AFTER 2022 - DUAL ELIGIBLE - HALFWAY OPTIONS AND ONE CARE (MEDICARE REPLACEMENT/ADV ANTAGE - HMO) Linette Fierro [id number] Linette Fierro Notes Date Note Type Note Provider Name and Address Organization Details Recorded Time 11/23/2023 text/html HPI: Patient with CKD.Two days of rash on left foot with severe itching no peeling skin or bleeding.Foot is red per report. ................. ................. ................. ................. ................. ................. ................. ................. ..... [facility] Nurse Triage Notes (Zurdo Mendoza): Comments: Reviewed HPI ................. ................. ................. ................. ................. ................. ................. ................. ..... Hat Mender Note From Dhruv Rivera: Dispatched to the call address for the female with foot pain. Pt states this is day 2 of pain and itchiness on her left foot. Pt states that she has had this before and she believes they gave her an abx cream. Pt denies any trauma to the area including scratching. Pt states she wears socks and shoes all day every day. Pt denies any fevers. Pt was found sitting in living room chair, CAOx4, airway open and patent, breathing non labored, able to speak in full sentences, -JVD, -HEENT, skin PWD with good turgor, abd soft non tender/distended, pupils PERRL, +CMSx4, left foot with some redness in-between toes and tender around the top distal half of foot. [facility] consulted. Pt advised to keep foot clean and dry, keep shoes/socks off when possible and to use OTC cream for athletes foot. Pt was advised that the pharmacist could assist in locating the medication. Red flags discussed. ALL times are approx. ................. ................. ................. ................. ................. ................. ................. ................. ..... Disposition: Dahlia Jordan MD [address] [facility],[address], [place], [address], [facility] 11/23/2023 16:54:37 OBGyn Episode No OBEpisode recorded.
--- OUTSIDE RECORDS SUMMARY | 2024-10-05 12:58 | XMS_ITS | Clinical Summary ---
Author Organization [facility] Address [address] [place] [address] Phone Care Team Providers Care Rasper Machine Operator Name Role Phone Unavailable Primary Care Provider Unavailabl e Allergies Active Allergy Reactions Criticality Noted Date Comments Beef Allergy 07/22/2022 Nsaids 07/22/2022 Penicillin V Other (see comments) 11/29/2020 Quinolones 07/22/2022 Medications aspirin (ST CONNER) 81 MG EC tablet Take 1 tablet by mouth 1 (one) time each day Active atorvastatin (LIPITOR) 10 MG tablet Take 1 tablet by mouth 1 (one) time each day Active cholecalciferol (VITAMIN D-3) 25 MCG (1000 UT) capsule Take 1 capsule by mouth every morning Active fluticasone HFA (Flovent HFA) 110 MCG/ACT inhaler Inhale 2 puffs 2 (two) times a day Active levothyroxine (SYNTHROID, LEVOTHROID) 50 MCG tablet Take 1 tablet by mouth 1 (one) time each day Active loratadine (CLARITIN) 10 MG tablet Take 1 tablet by mouth 1 (one) time each day Active metoprolol tartrate (LOPRESSOR) 50 MG tablet Take 1 tablet by mouth 1 (one) time each day Active losartan (COZAAR) 50 MG tablet Take 50 mg by mouth 1 (one) time each day Active D3-1000 25 MCG (1000 UT) tablet TOME KINSEY TABLETA POR V A ORAL A DIARIO 09/17/2022 Active levothyroxine (SYNTHROID, LEVOTHROID) 50 MCG tablet Take 1 tablet by mouth 1 (one) time each day 09/16/2022 Active Active Problems Problem Noted Date Diagnosed Date Allergic rhinitis 07/26/2022 03/12/2023 Overview (03/12/2023): Last Assessment & Plan: -previously on loratadine 10 mg daily -switched to cetirizine 5 mg daily due to CKD Headache 07/26/2022 03/12/2023 Overview (03/12/2023): Last Assessment & Plan: -multifactorial, sinus disease, Hx high-impact injury on her head (collision with refrigerator door) -incidental finding of skull lesion when pt went to ED in [place] in 2019, Question of multiple myeloma -Seen by Heme/Onc, Dr. Browne, and was safely discharged since further studies did not suggest multiple myeloma -02/10/20 Bone scan - no lytic lesion -02/05/20 normal CBC, normal calcium levels, slightly elevated beta 2 microglobulin of 3.53. Serum protein electrophoresis showed no abnormal bands. LDH, vitamin B12, folic acid and iron studies were normal. -YUE panel normal -03/27/20 MRI brain showed no acute intracranial findings. Showed well circumscribed partially enhancing region measuring 1.6cm in LEFT parietal cortex -Possibly due to pt's hx hyperparathyroidism / hypercalcemia -Work-up was reassuring that she is unlikely to have multiple myeloma -Continue APAP prn -Optimize Tx for allergic rhinitis Osteopenia 07/26/2022 03/12/2023 Overview (03/12/2023): -DEXA on 08/08/19 showed osteopenia with the lowest T-score of -2.1 in femoral neck -DEXA on 08/12/21 showed osteopenia T score -1.6 in lumbar spine. -DEXA on 09/10/21 showed T score -1.6, improvement from last test, will repeat again in 1-2 yrs. -Continue weight bearing exercise. -Continue fall precaution. -s/p alendronate for 5 years -currently not on bisphosphonate because it is contraindicated for patients with CKD. Consider alternative -Will order DEXA Scan Last Assessment & Plan: -DEXA on 08/08/19 showed osteopenia with the lowest T-score of -2.1 in femoral neck -DEXA on 08/12/21 showed osteopenia T score -1.6 in lumbar spine. -DEXA on 09/10/21 showed T score -1.6, improvement from last test, will repeat again in 1-2 yrs. -Continue weight bearing exercise. -Continue fall precaution. -s/p alendronate for 5 years -currently not on bisphosphonate because it is contraindicated for patients with CKD. Consider alternative Will order DEXA Scan Persistent proteinuria 04/15/2022 Anemia of chronic disease 11/29/2020 Overview (03/12/2023): Last Assessment & Plan: -in a setting of CKD -Last CBC was normal in Jun 2021 Chronic kidney disease stage 3 11/29/2020 Hyperparathyroidism 11/29/2020 Overview (03/12/2023): Last Assessment & Plan: -s/p parathyroidectomy -Hx kidney stone -optimize bone health -continue adequate fluid intake 2L/d Renal stone 11/29/2020 Overview (03/12/2023): Last Assessment & Plan: -in a setting of hyperparathyroidism -No longer has hyperparathyroidism -Continue drinking adequate amount of water 2L / day Bilateral cataracts 08/31/2016 03/12/2023 Acquired hypothyroidism 06/10/2015 03/12/20 23 Overview (03/12/2023): Last Assessment & Plan: -Last thyroid function test: 06/30/21, TSH 2.47. -Continue levothyroxine 50 mcg daily. Essential hypertension 06/10/2015 3 Overview (03/12/2023): Last Assessment & Plan: -Goal BP < 140/90 per JNC-8, < 130/80 per ACC/AHA guideline -BP not at goal today -BP typically normal at home, taken by CCA -Continue working on lifestyle modifications. -Continue metoprolol succinate 50 mg daily. -Continue losartan 50 mg daily -Continue checking home BP -She will contact us if her home BP is elevated persistently -Follow-up in 3 months for HTN / lab review. Obesity 05/26/2012 03/12/2023 Stage 3 chronic kidney disease 03/16/2012 Overview (03/12/2023): Last Assessment & Plan: -Followed by wet chemistry analyst for CKDIII, Hx hyperparathyroidism, hx kidney stone. -Lab 06/30/21, K 4.4; BUN 29; SCr 1.29; eGFR 40 -Continue current meds. -Avoid nephrotoxic drugs Impaired fasting glucose 03/16/2012 023 Asthma 02/10/2012 03/12/2023 Overview (03/12/2023): Last Assessment & Plan: -Most recent exacerbation in September 2018 and received doxycycline and prednisone -Continue albuterol HFA prn. -Previously on Flovent; discontinued due to improved status, but we will consider restarting if patient requires more frequent Albuterol use -Avoid triggers, which was cigarette smoke from her neighbors. After she moved from the apartment, she has been doing well. Hypercholesterolemia 02/10/2012 03/12/2023 Overview (03/12/2023): Last Assessment & Plan: -Current medication: atorvastatin 10 mg qhs -Most recent lab: 06/30/21. TC 181; TG 153; HDL 52; LDL 99. -She is on atorvastatin due to her CKD -Continue working on lifestyle modificaitons Immunizations Name Administration Dates Next Due Influenza Split 05/09/2013,05/26/2012 Influenza Split High Dose Pr eservative Free IM 07/24/2019 Influenza, Quadrivalent, Pre servative Free 06/25/2021,08/11/2018 Influenza, Quadrivalent, Wit h Preservative 09/27/2017,04/20/2016,06/10/2015 Influenza, Unspecified 07/02/2014,03/20/2011 Moderna SARS-COV-2 01/07/2022,,10/03/2020,09/05 Pneumococcal Conjugate 13-Valent 06/27/2015 Pneumococcal Polysaccharide 09/04/2008 Shingrix 02/19/2021,12/18/2020 Td 01/07/2022,01/17/2007 Tdap 09/16/2011 Zoster 09/29/2012 Social History Tobacco Use Types Packs/Day Years Used Date Smoking Tobacco: Former Smokeless Tobacco: Never Tobacco Cessation:Counseling Given: Not Answered Alcohol Use Standard Drinks/Week Comments No 0 (1 standard drink = 0.6 oz pur e alcohol) Comments Unknown Sex and Gender Information Value Date Recorded Sex Assigned at Not on file Legal Sex Female 5:01 PM EST Gender Identity Not on file Sexual Orientation Not on file Last Filed Vital Signs Vital Sign Reading Time Taken Comments Blood Pressure 123/60 03/15/2023 3:44 PM EDT Pulse 64 03/15/2023 3:44 PM EDT Temperature - - Respiratory Rate - - Oxygen Saturation 98% 03/15/2023 3:44 PM EDT Inhaled Oxygen Concentration - - Weight 75.8 kg (167 lb 3.2 oz) 03/15/2023 3:44 P M EDT Height 157.5 cm (5' 2 ) 04/15/2022 3:08 PM EDT Body Mass Index 30.58 04/15/2022 3:08 PM EDT Plan of Treatment Health Maintenance Due Date Last Done Comments Influenza Vaccine (#1) 2024 , 07/24/2019, 08/11/2018, Additional history exists Pneumococcal Vaccine: 65+ Years Completed 06/27/2015, 09/04/2008 Hepatitis B Vaccine Aged Out No longe r eligible based on patient's age to complete this topic Insurance [facility] ([id number]) [facility] ([id number])
== END 2024-10-05 10:24 | disposition home or self-care (01) ==
LOC: HO.LAB 10:23
PROVIDERS: PCP Family Medicine; Visit Provider Internal Medicine Hypertension Specialist
DX: N18.30 Chronic kidney disease, stage 3 unspecified (principal); Z87.442 Personal history of urinary calculi; E21.3 Hyperparathyroidism, unspecified; E03.9 Hypothyroidism, unspecified; R73.01 Impaired fasting glucose; E78.00 Pure hypercholesterolemia, unspecified
CPT/HCPCS: 36415; 80048; 80061; 83036; 83970; 84443; 85025

== ENCOUNTER 2024-10-17 10:16 | Outpatient (AMB) | payer OTHER, SELFPAY ==
[2024-10-17 10:27] VITALS: BP 160/70; PULSE 74; O2SAT 97
--- NOTE | 2024-10-17 10:27 | HO.NEPHOV_ITS ---
Vital Signs 10/17/24 10:27 10/17/24 10:43 Weight 180 lb BP 160/70 H 132/60 Blood Pressure Location Lt brachial Lt brachial Position Sitting Sitting Pulse 74 Pulse Source Pulse Oximeter Pulse Oximetry (%) 97 Oxygen Delivery Method Room Air Intake Visit Reasons: CKD/ Conf Crane Hoist Or Lift Operator Required: Yes Crane Hoist Or Lift Operator Name: Eufemia [id number] Accompanied by: Son Allergies ciprofloxacin [From Cipro] Allergy (Severe, Verified 10/17/24 10:31) RASH Iodinated Contrast Media [IV Dye, Iodine Containing] Allergy (Intermediate, Verified 10/17/24 10:31) RASH, ITCHY penicillin V Allergy (Mild, Verified 10/17/24 10:31) Unknown Medication List - Last Reconciled 10/17/24 by Jae Avina MD albuterol sulfate 90 mcg/actuation inhalation aspirin 81 mg PO DAILY atorvastatin 10 mg PO DAILY cetirizine 5 mg PO BEDTIME cholecalciferol (vitamin D3) (Vitamin D3) 25 mcg PO DAILY levothyroxine 50 mcg PO DAILY losartan 100 mg PO DAILY metoprolol succinate ER 50 mg PO DAILY HPI Comments Details: Elderly woman with a history of longstanding hypertension nephrolithiasis. She is here for regular follow-up. Today she was accompanied by family members. No new complaints. No urinary symptoms. She is compliant with all her medications. Interpretor service was used COUNT INCLUDES [facility] Medical History (Updated 10/21/23 @ 12:04 by Jae Avina MD) History of kidney stones Osteoporosis Bilateral cataracts Asthma Chronic kidney disease, stage 3 Hyperparathyroidism Hypercholesterolemia HTN (hypertension) History of CVA (cerebrovascular accident) Family History Other HTN (hypertension) History of kidney stones Social History Alcohol intake: never Physical Exam Vital Signs: Last Vital Signs Pulse 74 10/17/24 10:27 BP 160/70 H 10/17/24 10:27 Pulse Ox 97 10/17/24 10:27 Oxygen Delivery Method Room Air 10/17/24 10:27 Comfortable Neck supple no JVD. Lungs entry equal no rales. Heart S1-S2 heard no gallop or rub. Abdomen soft nontender. Neuro alert awake oriented. No asterixis. Extremities no edema. Results Reviewed Nephrology Results: Hgb 12.6 g/dl (12.0-16.0) 10/05/24 WBC 10.6 X10*3/uL (4.8-10.8) 10/05/24 Plt Count 302 X10*3/uL (160-400) 10/05/24 Sodium 141 mmol/L (135-145) 10/05/24 Potassium 4.5 mmol/L (3.3-5.1) 10/05/24 Chloride 106 mmol/L (96-108) 10/05/24 Carbon Dioxide 27 mmol/L (22-29) 10/05/24 BUN 41 mg/dL (9-16) H 10/05/24 Creatinine 1.46 mg/dL (0.5-1.4) H 10/05/24 Calcium 9.3 mg/dL (8.4-10.2) 10/05/24 Phosphorus 4.1 mg/dL (2.7-4.5) 10/21/23 PTH Intact 106.8 pg/mL (8.7-77.1) H 10/05/24 Urine Protein Negative mg/dL (Neg-Trace) 02/21/24 Urine Creatinine 79.76 mg/dL 02/21/24 Assessment & Plan Assessment & Plan (1) Chronic kidney disease, stage 3: Code(s): N18.30 - Chronic kidney disease, stage 3 unspecified Category: Medical (2) Hyperparathyroidism: Code(s): E21.3 - Hyperparathyroidism, unspecified Category: Medical (3) History of kidney stones: Comment: surgery for removal of stones in [place] Code(s): Z87.442 - Personal history of urinary calculi Category: Medical Plan Elderly woman with a history of stage III CKD in a setting of longstanding hypertension nephrolithiasis. She has had hyperparathyroidism with elevated serum calcium in the past. She should stay on low-sodium diet. Increase p.o. fluid. Blood pressure be maintained less than 130/80 mm Hg. Creatinine has bumped up Check renal USG Increase PO fluids Orders: Orders Immunofixation Pnl, Serum Today N18.30 - Chronic kidney disease, stage 3 unspecified Complement C4 Today N18.30 - Chronic kidney disease, stage 3 unspecified US renal BI Today I10 - Essential (primary) hypertension, N18.30 - Chronic kidney disease, stage 3 unspecified Basic Metabolic Panel Today N18.30 - Chronic kidney disease, stage 3 unspecified Parathyroid Hormone Intact Today N18.30 - Chronic kidney disease, stage 3 unspecified Protein Electrophoresis, Serum Today N18.30 - Chronic kidney disease, stage 3 unspecified Complement C3 Today N18.30 - Chronic kidney disease, stage 3 unspecified Coding Level of Care Code Est Pt Level 4 (82843) Diagnoses Chronic kidney disease, stage 3 N18.30 Hyperparathyroidism E21.3 History of kidney stones Z87.442
[2024-10-17 10:43] VITALS: BP 132/60
--- OUTSIDE RECORDS SUMMARY | 2024-10-17 12:20 | XMS_ITS | Encounter Summary ---
Author Organization [employer] Address [address] [place] [address] Care Team Providers Care Top Dyeing Machine Loader Name Role Phone Marie Canchola MD Primary Care Provider [phone] Khadar Menezes PharmD Unavailable [phone] Encounter Details Date Type Department Care Team ([facility] st Contact Info) Description 12/07/2023 Orders Only [facility] MEDICINE [address] [place], [place] [phone] Marie Canchola MD [address] [place], [place] [phone] Social History Tobacco Use Types Packs/Day Years Used Date Smoking Tobacco: Never Passive Smoke Exposure: Never Smokeless Tobacco: Never Depression Answer Date Recorded Patient Health Questionnaire-9 Score 0 11/16/2023 Patient Health Questionnaire-9 Score 0 11/16/2023 Last PHQ-9: Questionnaire Data Not on file 0 11/16/2023 Housing Stability Answer Date Recorded What is your housing situation today? I have anthony tafoya 11/05/[address] you li ve. Do you have problems with any of the following? None of the above 11/05/2023 Food Insecurity Answer Date Recorded Within the past 12 months, y ou worried that your food would run out before you got money to buy more: Never True 11/05/2023 Within the past 12 months,th e food you bought just didn't last and you didn't have enough money to get more: Never True 06/2024 Transportation Answer Date Recorded In the past 12 months, has l ack of transportation kept you from medical appts, meetings, work or from getting things needed for daily living? No 11/05/2023 Utilities Answer Date Recorded In the past 12 months, has t he electric, gas, oil or water company threatened to shut off services in your home? No 11/05/2023 Depression Answer Date Recorded Patient Health Questionnaire-2 Score 0 11/16/2023 Comments Unknown Sex and Gender Information Value Date Recorded Sex Assigned at Female 05/25/2022 10:15 AM EDT Legal Sex Female 10:15 AM EDT Gender Identity Female 05/25/2022 10:15 AM EDT Sexual Orientation Straight 05/25/2022 10 :15 AM EDT documented as of this encounter Plan of Treatment Not on file documented as of this encounter Visit Diagnoses Not on filedocumented in this encounter Additional Health Concerns Assessment Noted Time PHQ-9 Depression Total Score: 0 11/16/19 24 1:28 PM EDT documented as of this encounter Care Teams Top Dyeing Machine Loader Relationship Specialty Start Date End Date Marie Canchola MD [address] [place] [address] PCP - General Family Medicine 07/26/18 Khadar Menezes, SandraD [address] [place] [address] Pharmacist Internal Medicine 03/31/24 documented as of this encounter
--- OUTSIDE RECORDS SUMMARY | 2024-10-17 12:20 | XMS_ITS | Encounter Summary ---
Author Organization [facility] Address [address] [facility] [address] [place] [address] Care Team Providers Care Embossing Tool Setter Name Role Phone Marie Canchola MD Primary Care Provider [phone] Khadar Menezes PharmD Unavailable [phone] Reason for Visit * Reason Onset Date Comments chart prep 09/26/2024 Encounter Details Date Type Department Care Team ([facility] st Contact Info) Description 09/26/2024 Telephone [facility] MEDICINE [address] [place], [place] [phone] Marie Canchola MD [address] [place], [place] [phone] chart prep Social History Tobacco Use Types Packs/Day Years [...] AM EDT documented as of this encounter Miscellaneous Notes * Telephone Encounter - Maryse Betancourt [place] - 09/26/2024 11:33 AM EST ..chart Prep Labs: not done 03/31/24 Images: not applicable Vaccines due: Covid Due and Flu Due Referrals: Completed Screenings: Not Applicable Overdue care gaps: Sbirt, Oral Health, and Joel-7 documented in this encounter Plan of Treatment Not on file documented as of this encounter Goals Goal Patient Goal Type Associated Problems Recent Progress Patient-Stated? Author Blood Pressure < 140/90 Blood Pressure 138/60( 025 12:19 PM EST) No Khadar Menezes, Violet documented as of this encounter Visit Diagnoses Not on filedocumented in this encounter Additional Health Concerns Assessment Noted Time PHQ-9 Depression Total Score: 0 11/16/19 24 1:28 PM EDT documented as of this encounter Care Teams Embossing Tool Setter Relationship Specialty Start Date End Date Marie Canchola MD [address] [place] [address] PCP - General Family Medicine 07/26/18 Khadar Menezes, Violet [address] [place] [id number] Pharmacist Internal Medicine 03/31/24 documented as of this encounter
--- OUTSIDE RECORDS SUMMARY | 2024-10-17 12:20 | XMS_ITS | Encounter Summary ---
Author Organization [employer] Address [address] [place] [address] Care Team Providers Care Silo Tender Name Role Phone Marie Canchola MD Primary Care Provider [phone] Khadar Menezes PharmD Unavailable [phone] Encounter Details Date Type Department Care Team (Latest Contact Info) Description 09/28/2024 Travel Social History Tobacco Use Types Packs/Day Years [...] 025 12:19 PM EST) No Khadar Menezes, PharmD documented as of this encounter Visit Diagnoses Not on filedocumented in this encounter Additional Health Concerns Assessment Noted Time PHQ-9 Depression Total Score: 0 11/16/19 24 1:28 PM EDT documented as of this encounter Care Teams Silo Tender Relationship Specialty Start Date End Date Marie Canchola MD [address] [place] [address] PCP - General Family Medicine 07/26/18 Khadar Menezes, PharmD [address] [place] [address] Pharmacist Internal Medicine 03/31/24 documented as of this encounter
--- OUTSIDE RECORDS SUMMARY | 2024-10-17 12:20 | XMS_ITS | Encounter Summary ---
Author Organization [employer] Address [address] [place] [address] Care Team Providers Care Veneer Matcher Name Role Phone Marie Canchola MD Primary Care Provider Khadar Menezes PharmD Unavailable [phone] Encounter Details Date Type Department Care Team ([facility] st Contact Info) Description 09/28/2024 11:00 AM EST Office Visit [facility] [address] [place], [place] [phone] Marie Canchola MD [address] [place], [place] [phone] Essential hypertension (Primary Dx); Mild intermittent asthma without complication; Stage 3b chronic kidney disease (CMS/HCC); Osteopenia of multiple sites; Impaired fasting glucose; Acquired hypothyroidism; Allergic rhinitis, unspecified seasonality, unspecified trigger; Hypercholesterolemia Social History Tobacco Use Types Packs/Day Years [...] AM EDT documented as of this encounter Last Filed Vital Signs Vital Sign Reading Time Taken Comments Blood Pressure 138/60 09/28/2024 12:19 PM EST Pulse 104 09/28/2024 10:58 AM EST Temperature 35.6 ??C (96.1 ??F) 09/28/2024 10:[address] Respiratory Rate 15 09/28/2024 10:58 AM EST Oxygen Saturation 97% 09/28/2024 10:58 AM EST Inhaled Oxygen Concentration - - Weight 80.7 kg (178 lb) 09/28/2024 10:58 AM EST Height - - Body Mass Index 39.91 08/16/2023 1:51 PM EST documented in this encounter Progress Notes * Marie Canchola MD - 09/28/2024 11:00 AM EST Subjective Linette Fierro is a 84 y.o. female who has hypertension, CKD3, prediabetes, and asthma, and patient presents for follow up of chronic conditions. Background: Our last in-person encounter was 03/13/2024. [place] on 07/04/24. She was coughing for 2 weeks. Patient was requesting albuterol inhaler. No fever. Rx albuterol inhaler. Advised to check COVID at home and ER precaution given. Interval history: She has not done her lab yet Today: Pt reports she has been sneezing a lot lately and needs a refill on for her asthma inhaler, but shenotes she is not coughing as much anymore. Pt confirms she prefers allergy pills to nasal spray. Pt agrees to get her blood work done today. Pt notes she has an appointment on October 10 to get her kidney analysis done. Pt agrees to covid vaccine. Review of Systems Constitutional: Negative for activity change, appetite change and fever. Respiratory: Negative for shortness of breath. Cardiovascular: Negative for chest pain. Objective Vitals: 09/28/24 1058 09/28/24 1219 BP: (!) 141/64 138/60 Pulse: 104 Resp: 15 Temp: 96.1 ??F (35.6 ??C) TempSrc: Temporal SpO2: 97% Weight: 178 lb (80.7 kg) Physical Exam Constitutional: General: She is not in acute distress. Appearance: Normal appearance. She is not ill-appearing. HENT: Head: Normocephalic and atraumatic. Mouth/Throat: Mouth: Mucous membranes are moist. Eyes: Extraocular Movements: Extraocular movements intact. Pupils: Pupils are equal, round, and reactive to light. Cardiovascular: Rate and Rhythm: Normal rate and regular rhythm. Heart sounds: No murmur heard. Pulmonary: Effort: Pulmonary effort is normal. No respiratory distress. Breath sounds: Normal breath sounds. No wheezing or rhonchi. Skin: General: Skin is warm. Neurological: Mental Status: She is alert. Mental status is at baseline. Psychiatric: Mood and Affect: Mood normal. Results: No results found for this or any previous visit (from the past 18 weeks). Lab Results Component Value Date NA 142 02/14/2024 K 4.3 02/14/2024 CL 107 02/14/2024 CO2 27 02/14/2024 BUN 30 (H) 02/14/2024 CREATININE 1.36 02/14/2024 EGFR 37 02/14/2024 GLUCOSE 95 02/14/2024 TOTALBILIRUB 0.3 02/14/2024 AST 10 02/14/2024 ALT 10 02/14/2024 TOTPROTEIN 7.3 02/14/2024 ALB 4.2 02/14/2024 ALP 89 02/14/2024 Lab Results Component Value Date TRIG 78 11/17/2023 CHOL 167 11/17/2023 LDLCHOLCAL 84 11/17/2023 HDL 68 11/17/2023 Lab Results Component Value Date HGBA1C 5.9 11/17/2023 Lab Results Component Value Date WBC 9.5 02/14/2024 HGB 12.2 02/14/2024 HCT 39.4 02/14/2024 PLT 246 02/14/2024 MCV 89.5 02/14/2024 Lab Results Component Value Date TSH 0.85 02/14/2024 FREET4 1.06 02/14/2024 Screening and Health Care Maintenance: TRISTAN-7 Score: TRISTAN-7 Total Score: 0 (09/28/2024 10:58 AM) Assessment/Plan Problem List Items Addressed This Visit Acquired hypothyroidism -Last thyroid function test: 11/16/23 TSH 1.64 -Continue levothyroxine 50 mcg daily. - Ordered TSH with Reflex to Free T4 09/28/24 Relevant Orders TSH with Reflex to Free T4 Asthma - Moderate exacerbation in Jul 2023. Treated with prednisone and azithromycin. - SMART Switch albuterol to budesonide / formoterol - budesonide / formoterol 2 puffs bid, with additional 1-2 puffs every 4 hours as needed for difficulty breathing, maximum 12 puffs / day - Previously on Flovent; discontinued due to improved status, but we will consider restarting if patient requires more frequent Albuterol use - Avoid triggers, which was cigarette smoke from her neighbors. After she moved from the apartment,she has been doing well. Stage 3 chronic kidney disease (CMS/HCC) -Followed by collar runner for CKDIII, Hx hyperparathyroidism, hx kidney stone. Last seen in May 2024 -Continue current meds. -Avoid nephrotoxic drugs Essential hypertension - Primary -Goal BP < 130/80 per ACC/AHA guideline -Hx white-coat hypertension -Co-managed with collar runner and our pharamcist -Elevated BP today, patient reports fluctuating BP -Continue working on lifestyle modifications. -Continue metoprolol succinate 50 mg daily. -Continue losartan 100 mg daily -Continue checking home BP -She will contact us if her home BP is elevated persistently Hypercholesterolemia -Current medication: atorvastatin 10 mg qhs -Most recent lab: 11/16/23 -She is on atorvastatin due to her CKD -Continue working on lifestyle modificaitons - Ordered Lipid Panel with Reflex to Direct LDL 09/28/24 Relevant Orders Lipid Panel with Reflex to Direct LDL Impaired fasting glucose - Ordered Hemoglobin A1c 09/28/24 Relevant Orders Hemoglobin A1c Allergic rhinitis - Prescribed cetirizine (ZyrTEC) 5 MG tablet 09/28/24 Relevant Medications cetirizine (ZyrTEC) 5 MG tablet Osteopenia of multiple sites -DEXA on 08/08/19 showed osteopenia with the lowest T-score of -2.1 in femoral neck -DEXA on 08/12/21 showed osteopenia T score -1.6 in lumbar spine. -DEXA on 09/10/21 showed T score -1.6, improvement from last test -DEXA on 09/10/23 showed T score -2.1, decreased from last test, will repeat again in 1-2 yrs. -Continue weight bearing exercise. -Continue fall precaution. -s/p alendronate for 5 years -currently not on bisphosphonate because it is contraindicated for patients with CKD. Consider alternative -seen by [facility] Endocrinology provider in November 2023. Recommended to increase calcium intake. Anticipating a follow up appointment to discuss an alternative medication. -increase dietary calcium and vitamin D intake since patient has intolerance to calcium supplement Allergies Allergen Reactions Beef Allergy Nsaids Penicillins Quinolones Current Outpatient Medications Medication Instructions albuterol (Ventolin HFA) 108 (90 Base) MCG/ACT inhaler 2 puffs every 4 hours as needed for wheezingor asthma symptoms. Maximum daily dose 8 puffs aspirin (Aspirin Low Dose) 81 MG EC tablet TAKE 1 TABLET BY MOUTH EVERY DAY atorvastatin (Lipitor) 10 MG tablet TOME KINSEY TABLETA POR VIA ORAL AL ACOSTARSE budesonide-formoterol (Symbicort) 80-4.5 MCG/ACT inhaler Take 2 puffs twice daily. May take additional 1-2 puffs every 4 hours as needed. Maximum 12 puffs per day. Rinse mouth with water after use toreduce aftertaste and incidence of candidiasis. Do not swallow. cetirizine (ZYRTEC) 5 mg, Oral, Nightly COVID-19 At-Home Test kit 1 kit, In Vitro, Once as needed D3-1000 25 MCG (1000 UT) tablet TOME KINSEY TABLETA POR VIA ORAL A DIARIO levothyroxine (Synthroid, Levoxyl) 50 MCG tablet TAKE 1 TABLET BY MOUTH EVERY DAY losartan (COZAAR) 100 mg, Oral, Daily metoprolol succinate XL (Toprol-XL) 50 MG 24 hr tablet PITA EUCEDA LAURAMarlyn TRAVIS LOS MENDEZ Naphazoline-Glycerin (Clear Eyes Redness Relief) 0.012-0.25 % solution Instill 1-2 drops to each eye 1-2 times daily. Purchases OTC Follow-up: 16 weeks or sooner if any problem arises. Scribe Attestation: IYue, am serving as a scribe to document services personally performed by Marie Canchola MD, based on the patient's response to questions by provider and provides statements to me. documented in this encounter Miscellaneous Notes * Assessment & Plan Note - Yeu Yo MA - 09/29/2024 12:53 AM EST Associated Problem(s): Allergic rhinitis - Prescribed cetirizine (ZyrTEC) 5 MG tablet 09/28/24 * Assessment & Plan Note - Yue Yo MA - 09/29/2024 12:53 AM EST Associated Problem(s): Hypercholesterolemia -Current medication: atorvastatin 10 mg qhs -Most recent lab: 11/16/23 -She is on atorvastatin due to her CKD -Continue working on lifestyle modificaitons - Ordered Lipid Panel with Reflex to Direct LDL 09/28/24 * Assessment & Plan Note - Yue Yo MA - 09/29/2024 12:52 AM EST Associated Problem(s): Impaired fasting glucose - Ordered Hemoglobin A1c 09/28/24 * Assessment & Plan Note - Yue Yo MA - 09/29/2024 12:51 AM EST Associated Problem(s): Acquired hypothyroidism -Last thyroid function test: 11/16/23 TSH 1.64 -Continue levothyroxine 50 mcg daily. - Ordered TSH with Reflex to Free T4 09/28/24 * Assessment & Plan Note - Yue Yo MA - 09/29/2024 12:51 AM EST Associated Problem(s): Osteopenia of multiple sites -DEXA on 08/08/19 showed osteopenia with the lowest T-score of -2.1 in femoral neck -DEXA on 08/12/21 showed osteopenia T score -1.6 in lumbar spine. -DEXA on 09/10/21 showed T score -1.6, improvement from last test -DEXA on 09/10/23 showed T score -2.1, decreased from last test, will repeat again in 1-2 yrs. -Continue weight bearing exercise. -Continue fall precaution. -s/p alendronate for 5 years -currently not on bisphosphonate because it is contraindicated for patients with CKD. Consider alternative -seen by [facility] Endocrinology provider in November 2023. Recommended to increase calcium intake. Anticipating a follow up appointment to discuss an alternative medication. -increase dietary calcium and vitamin D intake since patient has intolerance to calcium supplement * Assessment & Plan Note - Yue Yo MA - 09/29/2024 12:51 AM EST Associated Problem(s): Stage 3 chronic kidney disease (CMS/HCC) -Followed by collar runner for CKDIII, Hx hyperparathyroidism, hx kidney stone. Last seen in May 2024 -Continue current meds. -Avoid nephrotoxic drugs * Assessment & Plan Note - Yue Yo MA - 09/29/2024 12:50 AM EST Associated Problem(s): Essential hypertension -Goal BP < 130/80 per ACC/AHA guideline -Hx white-coat hypertension -Co-managed with collar runner and our pharamcist -Elevated BP today, patient reports fluctuating BP -Continue working on lifestyle modifications. -Continue metoprolol succinate 50 mg daily. -Continue losartan 100 mg daily -Continue checking home BP -She will contact us if her home BP is elevated persistently * Assessment & Plan Note - Yue Yo MA - 09/29/2024 12:50 AM EST Associated Problem(s): Asthma - Moderate exacerbation in Jul 2023. Treated with prednisone and azithromycin. - SMART Switch albuterol to budesonide / formoterol - budesonide / formoterol 2 puffs bid, with additional 1-2 puffs every 4 hours as needed for difficulty breathing, maximum 12 puffs / day - Previously on Flovent; discontinued due to improved status, but we will consider restarting if patient requires more frequent Albuterol use - Avoid triggers, which was cigarette smoke from her neighbors. After she moved from the apartment,she has been doing well. documented in this encounter Plan of Treatment Not on file documented as of this encounter Goals Goal Patient Goal Type Associated Problems Recent Progress Patient-Stated? Author Blood Pressure < 140/90 Blood Pressure 138/60( 025 12:19 PM EST) Khadar Hernández, PharmD documented as of this encounter Procedures Procedure Name Priority Date/Time Associated Diagnosis Comments TSH W/REFLEX TO FT4 Routine 10/05/2024 1 0:38 AM EDT Acquired hypothyroidism LIPID PANEL WITH REFLEX TO DIRECT LDL Routine 10/05/2024 10:38 AM EDT Hypercholesterolemia HEMOGLOBIN A1C Routine 10/05/2024 10:38 AM EDT Impaired fasting glucose documented in this encounter Results * Lipid Panel with Reflex to Direct LDL (10/05/2024 10:38 AM EDT) Triglycerides 143 <150 mg/dL [facility] Comment:Desirable Triglyceri de: less than 150 mg/dLBorderline High Triglyceride 150-199 mg/dLHigh Triglyceride: 200-499 mg/dLVery High Triglyceride: greater than or equal to 5OO mg/dL Cholesterol 181 <200 mg/dL [facility] Comment:Desirable Cholestero l: less than 200 mg/dLBorderline High Cholesterol: 200-239 mg/dLHigh Cholesterol: greater than 239 mg/dL LDL Cholesterol Calculated 93 <100 mg/dL [facility] Comment:Desirable LDL: less than 100 mg/dLNear Optimal/Above Optimal LDL: 110- 129 mg/dLBorderline High LDL: 130-159 mg/dLHigh LDL: 160-189 mg/dLVery High LDL: greater than or equal to 190 mg/dL HDL Cholesterol 60 >40 mg/dL [facility] Comment:Desirable HDL: great er than 40 mg/dL Note: This HDL assay may give artificially low results in patients with liver disease. Blood 10/05/2024 10:3 8 AM EDT 10/05/2024 10:38 AM EDT us Marie Canchola MD LAB BLOOD ORDERABLES Final Resul t [facility] [address] [place] [phone] * Hemoglobin A1c (10/05/2024 10:38 AM EDT) Hemoglobin A1c 5.8 <6.0 % [facility] Comment:Hemoglobin A1C Refer ence Range Adults: 4.8 - 6.0 % Non diabetic: < 6.0 % Goal: < 7.0 %Additional Action Suggested: > 8.0 %Note: Hemoglobin A1c results are invalid for patients with abnormal amounts of HbF. Blood transfusions may impact the HbA1c concentration in the patient sample. Estimated Average Glucose 120 mg/dL [facility] Comment:eAG = Estimated ave rage glucose which is %A1C expressed asaverage glucose, using the formula of the W1X-DmhjspkOlzufhn Glucose study (ADAG), Diabetes Care, Vol.31,#8,2007 Blood Venous blood specimen / Unknown 10/05/2024 10:38 AM EDT 10/05/2024 10:38 AM EDT us Marie Canchola MD LAB BLOOD ORDERABLES Final Resul t Performing Organization Address City/[facility]/ZIP Co de Phone Number [facility] [address] [place] [address] [phone] * TSH with Reflex to Free T4 (10/05/2024 10:38 AM EDT) TSH reflex Free T4 1.59 0.32 - 4.0 uIU/mL [facility] Blood 10/05/2024 10:3 8 AM EDT 10/05/2024 10:38 AM EDT us Marie Canchola MD LAB BLOOD ORDERABLES Final Resul t Performing Organization Address [facility] Co de Phone Number [facility] [address] [place] [phone] documented in this encounter Visit Diagnoses Diagnosis Essential hypertension- Primary Unspecified essential hypertension Mild intermittent asthma without complication Stage 3b chronic kidney disease (CMS/HCC) Osteopenia of multiple sites Impaired fasting glucose Acquired hypothyroidism Unspecified hypothyroidism Allergic rhinitis, unspecified seasonality, unspecified trigger Hypercholesterolemia Pure hypercholesterolemia documented in this encounter Additional Health Concerns Assessment Noted Time PHQ-9 Depression Total Score: 0 11/16/19 24 1:28 PM EDT documented as of this encounter Care Teams Veneer Matcher Relationship Specialty Start Date End Date Marie Canchola MD [address] [place] [address] PCP - General Family Medicine 07/26/18 Khadar Menezes, SandraD [address] [place] [address] Pharmacist Internal Medicine 03/31/24 documented as of this encounter
--- OUTSIDE RECORDS SUMMARY | 2024-10-17 12:20 | XMS_ITS | Clinical Summary ---
Author Organization [employer] Address [address] [place] [address] Care Team Providers Care Ultrasound Technician Name Role Phone Marie Canchola MD Primary Care Provider [phone] Khadar Menezes PharmD Unavailable [phone] Allergies Active Allergy Reactions Criticality Noted Date Comments Beef Allergy 07/22/2022 Nsaids 07/22/2022 Penicillins 07/22/2022 Quinolones 07/22/2022 Medications metoprolol succinate XL (Toprol-XL) 50 MG 24 hr tablet TOME KINSEY TABLETA TODOS [place] MENDEZ 90 tablet 3 024 Active D3-1000 25 MCG (1000 UT) tablet TOME KINSEY TABLETA POR VIA ORAL A DIARIO 90 tablet 3 024 Active aspirin (Aspirin Low Dose) 81 MG EC tablet TAKE 1 TABLET BY MOUTH EVERY DAY 90 tablet 3 024 Active Naphazoline-Glyce rin (Clear Eyes Redness Relief) 0.012-0.25 % solution Instill 1-2 drops to each eye 1-2 times daily. Purchases OTC Active atorvastatin (Lipitor) 10 MG tabletIndications :Dyslipidemia TOME KINSEY TABLETA POR VIA ORAL AL ACOSTARSE 90 tablet 3 024 Active albuterol (Ventolin HFA) 108 (90 Base) MCG/ACT inhalerIndication s:Mild intermittent asthma without complication 2 puffs every 4 hours as needed for wheezing or asthma symptoms. Maximum daily dose 8 puffs 18 g 1 024 Active losartan (Cozaar) 100 MG tabletIndications :Essential hypertension Take 1 tablet (100 mg) by mouth Once per day. 90 tablet 3 024 Active COVID-19 At-Home Test kit 1 kit by In Vitro route 1 (one) time if needed (cough, fever, malaise, and rhinorrhea. Or sick contact.) for up to 1 dose. 2 kit 1 Active levothyroxine (Synthroid, Levoxyl) 50 MCG tabletIndications :Acquired hypothyroidism TAKE 1 TABLET BY MOUTH EVERY DAY 90 tablet 3 025 Active cetirizine (ZyrTEC) 5 MG tabletIndications :Allergic rhinitis, unspecified seasonality, unspecified trigger Take 1 tablet (5 mg) by mouth at bedtime. 90 tablet 3 Active budesonide-formot jodi (Symbicort) 80-4.5 MCG/ACT inhaler Take 2 puffs twice daily. May take additional 1-2 puffs every 4 hours as needed. Maximum 12 puffs per day. Rinse mouth with water after use to reduce aftertaste and incidence of candidiasis. Do not swallow. 1 each 11 025 Active cetirizine (ZyrTEC) 5 MG tabletIndications :Allergic rhinitis, unspecified seasonality, unspecified trigger Take 1 tablet (5 mg) by mouth at bedtime. 90 tablet 3 022 2024 Discontinued(R eorder (will not trigger notification to Pharmacy)) albuterol (Ventolin HFA) 108 (90 Base) MCG/ACT inhalerIndication s:Mild intermittent asthma without complication 2 puffs every 4 hours as needed for wheezing or asthma symptoms. Maximum daily dose 8 puffs 18 g 1 024 2024 Discontinued Active Problems Problem Noted Date Diagnosed Date Allergic rhinitis 07/26/2022 Assessment & Plan (09/29/2024 12:53 AM EST): - Prescribed cetirizine (ZyrTEC) 5 MG tablet 09/28/24 Assessment & Plan (08/22/2023 3:24 PM EST): -previously on loratadine 10 mg daily -switched to cetirizine 5 mg daily due to CKD Assessment & Plan (07/26/2022 10:50 AM EST): -previously on loratadine 10 mg daily -switched to cetirizine 5 mg daily due to CKD Nonintractable episodic headache 07/26/2022 Assessment & Plan (11/03/2022 1:36 PM EDT): -multifactorial, sinus disease, Hx high-impact injury on her head (collision with refrigerator door) -incidental finding of skull lesion when pt went to ED in [place] in 2019, Question of multiple myeloma -Seen [...] APAP prn -Optimize Tx for allergic rhinitis Assessment & Plan (07/26/2022 10:29 AM EST): -multifactorial, sinus disease, Hx high-impact injury on her head (collision with refrigerator door) -incidental finding of skull lesion when pt went to ED in [place] in 2019, Question of multiple myeloma -Seen [...] prn -Optimize Tx for allergic rhinitis Osteopenia of multiple sites 07/26/2022 Overview (04/26/2023): -DEXA on 08/08/19 showed osteopenia with the lowest T-score of -2.1 in femoral neck -DEXA on 08/12/21 showed osteopenia T score -1.6 in lumbar spine. -DEXA on 09/10/21 showed T score -1.6, improvement from last test,repeat again in 1-2 yrs. -Continue weight bearing exercise. -Continue fall precaution. -s/p alendronate for 5 years -currently not on bisphosphonate because it is contraindicated for patients with CKD. Consider alternative Assessment & Plan (09/29/2024 12:51 AM EST): -DEXA on 08/08/19 showed osteopenia with the [...] patients with CKD. Consider alternative -seen by [facility] Endocrinology provider in November 2023. Recommended to increase calcium intake. Anticipating a follow up appointment to discuss an alternative medication. -increase dietary calcium and vitamin D intake since patient has intolerance to calcium supplement Assessment & Plan (03/13/2024 4:28 PM EDT): -DEXA on 08/08/19 showed osteopenia with the [...] patients with CKD. Consider alternative -seen by [facility] Endocrinology provider in November 2023. Recommended to increase calcium intake. Anticipating a follow up appointment to discuss an alternative medication. -increase dietary calcium and vitamin D intake since patient has intolerance to calcium supplement Assessment & Plan (11/16/2023 3:03 PM EDT): -DEXA on 08/08/19 showed osteopenia with the [...] contraindicated for patients with CKD. Consider alternative - will refer to endocrinology for alternative medicaton Assessment & Plan (08/22/2023 3:35 PM EST): -DEXA on 08/08/19 showed osteopenia with the [...] contraindicated for patients with CKD. Consider alternative -will order DEXA scan Assessment & Plan (11/03/2022 1:47 PM EDT): -DEXA on 08/08/19 showed osteopenia with the [...] proteinuria 04/15/2022 Anemia of chronic disease 11/29/2020 Assessment & Plan (07/26/2022 10:23 AM EST): -in a setting of CKD -Last CBC was normal in Jun 2021 Hyperparathyroidism 11/29/2020 Assessment & Plan (07/03/2024 12:53 PM EST): -s/p parathyroidectomy -Hx kidney stone -optimize bone health -continue adequate fluid intake 2L/d Assessment & Plan (03/13/2024 4:29 PM EDT): -s/p parathyroidectomy -Hx kidney stone -optimize bone health -continue adequate fluid intake 2L/d Assessment & Plan (11/21/2023 6:31 PM EDT): -s/p parathyroidectomy -Hx kidney stone -optimize bone health -continue adequate fluid intake 2L/d Assessment & Plan (07/26/2022 10:41 AM EST): -s/p parathyroidectomy -Hx kidney stone -optimize bone health -continue adequate fluid intake 2L/d Renal stone 11/29/2020 Assessment & Plan (07/26/2022 10:37 AM EST): -in a setting of hyperparathyroidism -No longer has hyperparathyroidism -Continue drinking adequate amount of water 2L / day Bilateral cataracts 08/31/2016 Acquired hypothyroidism 06/10/2015 Assessment & Plan (09/29/2024 12:51 AM EST): -Last thyroid function test: 11/16/23 TSH 1.64 -Continue levothyroxine 50 mcg daily. - Ordered TSH with Reflex to Free T4 09/28/24 Assessment & Plan (03/13/2024 4:28 PM EDT): -Last thyroid function test: 11/16/23 TSH 1.64 -Continue levothyroxine 50 mcg daily. Assessment & Plan (11/21/2023 6:30 PM EDT): -Last thyroid function test: 11/16/23 TSH 1.64 -Continue levothyroxine 50 mcg daily. Assessment & Plan (08/22/2023 3:23 PM EST): -Last thyroid function test: 11/05/22 TSH 2.71. -Continue levothyroxine 50 mcg daily. Assessment & Plan (04/26/2023 5:06 AM EDT): -Last thyroid function test: 11/05/22 TSH 2.71. -Continue levothyroxine 50 mcg daily. Assessment & Plan (11/03/2022 1:30 PM EDT): -Last thyroid function test: 06/30/21, TSH 2.47. -Continue levothyroxine 50 mcg daily. Assessment & Plan (07/26/2022 10:41 AM EST): -Last thyroid function test: 06/30/21, TSH 2.47. -Continue levothyroxine 50 mcg daily. Essential hypertension 06/10/2015 Assessment & Plan (09/29/2024 12:50 AM EST): -Goal BP < 130/80 per ACC/AHA guideline -Hx white-coat hypertension -Co-managed with research manager and our pharamcist -Elevated BP today, patient reports fluctuating BP -Continue working on lifestyle modifications. -Continue metoprolol succinate 50 mg daily. -Continue losartan 100 mg daily -Continue checking home BP -She will contact us if her home BP is elevated persistently Assessment & Plan (07/03/2024 12:52 PM EST): -Goal BP < 130/80 per ACC/AHA guideline -Hx white-coat hypertension -Co-managed with research manager and our pharamcist -Elevated BP today, patient reports fluctuating BP -Continue working on lifestyle modifications. -Continue metoprolol succinate 50 mg daily. -Continue losartan 100 mg daily -Continue checking home BP -She will contact us if her home BP is elevated persistently Assessment & Plan (03/13/2024 4:25 PM EDT): -Goal BP < 140/90 per JNC-8, < 130/80 per ACC/AHA guideline -Hx white-coat HTN -BP typically normal at home -Continue working on lifestyle modifications. -Continue metoprolol succinate 50 mg daily. -Continue losartan 50 mg daily -Continue checking home BP -She will contact us if her home BP is elevated persistently Assessment & Plan (11/16/2023 2:58 PM EDT): -Goal BP < 140/90 per JNC-8, < 130/80 per ACC/AHA guideline -Hx white-coat HTN -BP typically normal at home -Continue working on lifestyle modifications. -Continue metoprolol succinate 50 mg daily. -Continue losartan 50 mg daily -Continue checking home BP -She will contact us if her home BP is elevated persistently -Follow-up in 3-4 months for HTN / lab review, or sooner if any problem arises Assessment & Plan (08/22/2023 3:22 PM EST): -Goal BP < 140/90 per JNC-8, < 130/80 per ACC/AHA guideline -Hx white-coat HTN -BP typically normal at home -Continue working on lifestyle modifications. -Continue metoprolol succinate 50 mg daily. -Continue losartan 50 mg daily -Continue checking home BP -She will contact us if her home BP is elevated persistently -Follow-up in 3-4 months for HTN / lab review, or sooner if any problem arises Assessment & Plan (04/26/2023 5:03 AM EDT): -Goal BP < 140/90 per JNC-8, < 130/80 per ACC/AHA guideline -Hx white-coat HTN -BP typically normal at home -Continue working on lifestyle modifications. -Continue metoprolol succinate 50 mg daily. -Continue losartan 50 mg daily -Continue checking home BP -She will contact us if her home BP is elevated persistently -Follow-up in 3-4 months for HTN / lab review, or sooner if any problem arises Assessment & Plan (11/03/2022 1:36 PM EDT): -Goal BP < 140/90 per JNC-8, < [...] 3 months for HTN / lab review. Assessment & Plan (07/26/2022 10:34 AM EST): -Goal BP < 140/90 per JNC-8, < 130/80 per ACC/AHA guideline -BP not at goal today -Continue working on lifestyle modifications. -Continue metoprolol succinate 50 mg daily. -Continue losartan 50 mg daily -Continue checking home BP -She will contact us if her home BP is elevated persistently -Follow-up in 3 months for HTN / lab review. Obesity 05/26/2012 Assessment & Plan (03/13/2024 4:30 PM EDT): - continue working on lifestyle modifications Stage 3 chronic kidney disease 03/16/2012 Assessment & Plan (09/29/2024 12:51 AM EST): -Followed by research manager for CKDIII, Hx hyperparathyroidism, hx kidney stone. Last seen in May 2024 -Continue current meds. -Avoid nephrotoxic drugs Assessment & Plan (07/03/2024 12:53 PM EST): -Followed by research manager for CKDIII, Hx hyperparathyroidism, hx kidney stone. Last seen in May 2024 -Continue current meds. -Avoid nephrotoxic drugs Assessment & Plan (03/13/2024 4:26 PM EDT): -Followed by research manager for CKDIII, Hx hyperparathyroidism, hx kidney stone. Last seen in January 2024, q6m visit. -Continue current meds. -Avoid nephrotoxic drugs Assessment & Plan (11/16/2023 3:00 PM EDT): -Followed by research manager for CKDIII, Hx hyperparathyroidism, hx kidney stone. Last seen in Feb 2023 -Continue current meds. -Avoid nephrotoxic drugs Assessment & Plan (08/22/2023 3:23 PM EST): -Followed by research manager for CKDIII, Hx hyperparathyroidism, hx kidney stone. Last seen in Feb 2023 -Continue current meds. -Avoid nephrotoxic drugs Assessment & Plan (04/26/2023 5:03 AM EDT): -Followed by research manager for CKDIII, Hx hyperparathyroidism, hx kidney stone. Last seen on 03/15/23. -Lab 06/30/21, K 4.4; BUN 29; SCr 1.29; eGFR 40 -Continue current meds. -Avoid nephrotoxic drugs Assessment & Plan (11/03/2022 1:35 PM EDT): -Followed by research manager for CKDIII, Hx hyperparathyroidism, hx kidney stone. -Lab 06/30/21, K 4.4; BUN 29; SCr 1.29; eGFR 40 -Continue current meds. -Avoid nephrotoxic drugs Assessment & Plan (07/26/2022 10:36 AM EST): -Followed by research manager for CKDIII, Hx hyperparathyroidism, hx kidney stone. -Lab 06/30/21, K 4.4; BUN 29; SCr 1.29; eGFR 40 -Continue current meds. -Avoid nephrotoxic drugs Impaired fasting glucose 03/16/2012 Assessment & Plan (09/29/2024 12:52 AM EST): - Ordered Hemoglobin A1c 09/28/24 Asthma 02/10/2012 Assessment & Plan (10/04/2024 3:41 PM EDT): - Moderate exacerbation in Jul 2023. Treated [...] the apartment, she has been doing well. Assessment & Plan (07/03/2024 12:51 PM EST): - Moderate exacerbation in Jul 2023. Treated with prednisone and azithromycin. - Currently having cough for 2 weeks. Patient is self-treating with OTC medication. Reviewed ER precautions and si/sx to seek a prompt medical attention - Continue albuterol HFA prn. - Previously on Flovent; discontinued due to improved status, but we will consider restarting if patient requires more frequent Albuterol use - Avoid triggers, which was cigarette smoke from her neighbors. After she moved from the apartment, she has been doing well. Assessment & Plan (03/13/2024 4:21 PM EDT): - Moderate exacerbation in Jul 2023. Treated with prednisone and azithromycin. - Continue albuterol HFA prn. - Previously on Flovent; discontinued due to improved status, but we will consider restarting if patient requires more frequent Albuterol use - Avoid triggers, which was cigarette smoke from her neighbors. After she moved from the apartment, she has been doing well. Assessment & Plan (11/16/2023 2:59 PM EDT): - Moderate exacerbation in Jul 2023. Treated with prednisone and azithromycin. -Continue albuterol HFA prn. -Previously on Flovent; discontinued due to improved status, but we will consider restarting if patient requires more frequent Albuterol use -Avoid triggers, which was cigarette smoke from her neighbors. After she moved from the apartment, she has been doing well. Assessment & Plan (08/22/2023 3:21 PM EST): - Moderate exacerbation today, Jul 2023. Will treat with prednisone and azithromycin. Advised to monitor BP closely and inform us if BP is > 170 - Last exacerbation in September 2018 and received doxycycline and prednisone -Continue albuterol HFA prn. -Previously on Flovent; discontinued due to improved status, but we will consider restarting if patient requires more frequent Albuterol use -Avoid triggers, which was cigarette smoke from her neighbors. After she moved from the apartment, she has been doing well. Assessment & Plan (04/20/2023 2:51 PM EDT): -Most recent exacerbation in September 2018 and received doxycycline and prednisone -Continue albuterol HFA prn. -Previously on Flovent; discontinued due to improved status, but we will consider restarting if patient requires more frequent Albuterol use -Avoid triggers, which was cigarette smoke from her neighbors. After she moved from the apartment, she has been doing well. Assessment & Plan (07/26/2022 10:31 AM EST): -Most recent exacerbation in September 2018 and received doxycycline and prednisone -Continue albuterol HFA prn. -Previously on Flovent; discontinued due to improved status, but we will consider restarting if patient requires more frequent Albuterol use -Avoid triggers, which was cigarette smoke from her neighbors. After she moved from the apartment, she has been doing well. Hypercholesterolemia 02/10/2012 Assessment & Plan (09/29/2024 12:53 AM EST): -Current medication: atorvastatin 10 mg qhs -Most recent lab: 11/16/23 -She is on atorvastatin due to her CKD -Continue working on lifestyle modificaitons - Ordered Lipid Panel with Reflex to Direct LDL 09/28/24 Assessment & Plan (11/21/2023 6:30 PM EDT): -Current medication: atorvastatin 10 mg qhs -Most recent lab: 11/16/23 -She is on atorvastatin due to her CKD -Continue working on lifestyle modificaitons Assessment & Plan (08/22/2023 3:24 PM EST): -Current medication: atorvastatin 10 mg qhs -Most recent lab: 11/05/22 TC 149; TG 103; HDL 73; LDL 57 -She is on atorvastatin due to her CKD -Continue working on lifestyle modificaitons Assessment & Plan (04/26/2023 5:07 AM EDT): -Current medication: atorvastatin 10 mg qhs -Most recent lab: 11/05/22 TC 149; TG 103; HDL 73; LDL 57 -She is on atorvastatin due to her CKD -Continue working on lifestyle modificaitons Assessment & Plan (07/26/2022 10:45 AM EST): -Current medication: atorvastatin 10 mg qhs -Most recent lab: 06/30/21. TC 181; TG 153; HDL 52; LDL 99. -She is on atorvastatin due to her CKD -Continue working on lifestyle modificaitons Resolved Problems Problem Noted Date Diagnosed Date Resolved Date Acute cough 07/03/2024 09/28/2024 Assessment & Plan (07/03/2024 3:31 PM EST): - currently having cough for 2 weeks. Patient is self-treating with OTC medication(Robitussin) at home. - sent at home COVID test 07/03/24. - reviewed ER precautions and si/sx to seek a prompt medical attention - pt will call if not getting better. Weakness 02/11/2024 03/13/2024 Assessment & Plan (02/11/2024 4:50 PM EDT): 11/17/2023 BUN 27,Rest chem wnl, CBC,TSH are all wnl Hb1AC 5.9 -resume ca+ next week when feeling well but for now only 600 mg daily to eval if tolerates -labs CBC,chem ,TSH ---will call pt w results -advised hydration and to change slowly from positions -alarm signs and symptoms discussed today -apt w PCP 03/13/2024 already scheduled Dyslipidemia 07/26/2022 07/26/2022 Osteoporosis 03/16/2012 07/26/2022 Encounters Date Type Department Care Team Description 10/05/2024 Orders Only GENERIC EXTERNAL DATA DEPARTMENT Provider, Generic External Data 10/04/[address] [phone] Marie Canchola MD Med Refill 09/28/2024 11:00 AM EST Office Visit [facility] [address] [place] [address] Marie Canchola MD Essential hypertension (Primary Dx); Mild intermittent asthma without complication; Stage 3b chronic kidney disease (CMS/HCC); Osteopenia of multiple sites; Impaired fasting glucose; Acquired hypothyroidism; Allergic rhinitis, unspecified seasonality, unspecified trigger; Hypercholesterolemia 09/28/2024 Travel 09/26/2024 Telephone [facility] [address] [place] [address] Marie Canchola MD chart prep 08/24/2024 Refill [facility] [address] [place] [address] Marie Canchola MD Acquired hypothyroidism from Last 3 Months Immunizations Name Administration Dates Next Due Influenza injectable quadriv alent IIV4 with preservative 09/27/2017,04/20/2016,06/10/2015 Influenza injectable quadriv alent preservative free 04/20/2023,06/25/2021,08/11/2018 Influenza, High Dose Seasona l, Preservative Free 07/24/2019 Influenza, IIV3, injectable 07/02/2014, 1 Influenza, Split (incl. juliana fied surface antigen) 05/09/2013,05/26/2012 Moderna Covid-19 Vaccine 12+ 01/07/2022, 06/25/2021,10/03/2020,09/05 Pfizer Covid-19 Vaccine 12+ 09/28/2024 Pneumococcal Conjugate PCV 13 06/27/2015 Pneumococcal Polysaccharide PPSV23 09/04/2008 TD (adult), 2 Lf tetanus tox oid, preservative free, adsorbed 01/07/2022,01/17/2007 Tdap 09/16/2011 Zoster, Recombinant 02/19/2021,12/18/2020 Zoster, live 09/29/2012 Social History Tobacco Use Types Packs/Day Years Used Date Smoking Tobacco: Never Passive Smoke Exposure: Never Smokeless Tobacco: Never Tobacco Cessation:Counseling Given: Not Answered Depression Answer Date Recorded Patient Health Questionnaire-9 [...] Orientation Straight 05/25/2022 10 :15 AM EDT Last Filed Vital Signs Vital Sign Reading Time Taken Comments Blood Pressure 138/60 09/28/2024 12:19 PM EST Pulse 104 09/28/2024 10:58 AM EST Temperature 35.6 ??C (96.1 ??F) 09/28/2024 10:[address] Respiratory Rate 15 09/28/2024 10:58 AM EST Oxygen Saturation 97% 09/28/2024 10:58 AM EST Inhaled Oxygen Concentration - - Weight 80.7 kg (178 lb) 09/28/2024 10:58 AM EST Height 142.2 cm (4' 8 ) 08/16/2023 1:51 PM EST Body Mass Index 39.91 08/16/2023 1:51 PM EST Plan of Treatment Health Maintenance Due Date Last Done Comments Alcohol/Substance Use Screening 1952 RSV Patients and Patients Aged 60 years or older (1 - 1-dose 75+ series) 01/23/2016 Influenza Vaccine (#1) 2024 , 06/25/2021, 07/24/2019, Additional history exists SDOH Screening 11/04/2024 11/05/2023 Depression Screening 11/15/2024 11/16/2023, 11/16/19 24 Tobacco Screening 10/04/2025 10/04/2024 Diabetes: Hemoglobin A1C 10/05/2025 025, 11/17/2023, 11/05/2022, Additional history exists Lipid Panel 10/05/2029 10/05/2024, 10/25, 11/05/2022, Additional history exists DTaP/Tdap/Td Vaccines (3 - Td or Tdap) 01/08/2032 01/07/2022, 09/16/2011, 01/17/2007 Pneumococcal Vaccine: 50+ Years Completed 06/27/2015, 09/04/2008 Zoster Vaccines Completed 02/19/2021, 11/24, 09/29/2012 COVID-19 Vaccine Completed 09/28/2024, , 06/25/2021, Additional history exists HIB Vaccines Aged Out No longer eligi ble based on patient's age to complete this topic HPV Vaccines Aged Out No longer eligi ble based on patient's age to complete this topic Hepatitis A Vaccines Aged Out No long er eligible based on patient's age to complete this topic Hepatitis B Vaccines Aged Out No long er eligible based on patient's age to complete this topic IPV Vaccines Aged Out No longer eligi ble based on patient's age to complete this topic Meningococcal Vaccine Aged Out No ilz devin eligible based on patient's age to complete this topic RSV under 20 months Aged Out No longe r eligible based on patient's age to complete this topic Rotavirus Vaccines Aged Out No longer eligible based on patient's age to complete this topic Goals Goal Patient Goal Type Associated Problems Recent Progress Patient-Stated? Author Blood Pressure < 140/90 Blood Pressure 138/60( 025 12:19 PM EST) No Khadar Menezes, PharmD Procedures Procedure Name Priority Date/Time Associated Diagnosis Comments PTH, INTACT WITHOUT CALCIUM Routine 10/05/2024 10:38 AM EDT BASIC METABOLIC PANEL Routine 10/05/2024 10:38 AM EDT CBC WITH AUTO DIFFERENTIAL Routine 10/05/2024 10:38 AM EDT LIPID PANEL WITH REFLEX TO DIRECT LDL Routine 10/05/2024 10:38 AM EDT Hypercholesterolemia HEMOGLOBIN A1C Routine 10/05/2024 10:38 AM EDT Impaired fasting glucose TSH W/REFLEX TO FT4 Routine 10/05/2024 1 0:38 AM EDT Acquired hypothyroidism from Last 3 Months Results * TSH with Reflex to Free T4 (10/05/2024 10:38 AM EDT) TSH reflex Free T4 1.59 0.32 - 4.0 uIU/mL [facility] Blood 10/05/2024 10:3 8 AM EDT 10/05/2024 10:38 AM EDT us Marie Canchola MD LAB BLOOD ORDERABLES Final Resul t [facility] [address] [place] [phone] * Lipid Panel with Reflex to Direct LDL (10/05/2024 10:38 AM EDT) Triglycerides 143 <150 mg/dL [facility] Comment:Desirable Triglyceri de: less than 150 mg/dLBorderline High Triglyceride 150-199 mg/dLHigh Triglyceride: 200-499 mg/dLVery High Triglyceride: greater than or equal to 5OO mg/dL Cholesterol 181 <200 mg/dL [facility] Comment:Desirable Cholestero l: less than 200 mg/dLBorderline High Cholesterol: 200-239 mg/dLHigh Cholesterol: greater than 239 mg/dL LDL Cholesterol Calculated 93 <100 mg/dL [facility] Comment:Desirable LDL: less than 100 mg/dLNear Optimal/Above Optimal LDL: 110- 129 mg/dLBorderline High LDL: 130-159 mg/dLHigh LDL: 160-189 mg/dLVery High LDL: greater than or equal to 190 mg/dL HDL Cholesterol 60 >40 mg/dL [facility] Comment:Desirable HDL: great er than 40 mg/dL Note: This HDL assay may give artificially low results in patients with liver disease. Blood 10/05/2024 10:3 8 AM EDT 10/05/2024 10:38 AM EDT us Marie Canchola MD LAB BLOOD ORDERABLES Final Resul t [facility] [address] [place] [phone] * (ABNORMAL) CBC auto differential (10/05/2024 10:38 AM EDT) White Blood Count 10.6 4.8 - 10.8 X10*3/uL [facility] Red Blood Count 4.58 4.20 - 5.50 X10*6/uL [facility] Hemoglobin 12.6 12.0 - 16.0 g/dl [facility] Hematocrit 39.9 37.0 - 47.0 % [facility] Mean Corpuscular Volume 87.1 80.0 - 98.0 fL [facility] Mean Corpuscular Hemoglobin 27.5 27.0 - 33.0 pg [facility] Mean Corpuscular HGB Conc 31.6 31.0 - 35.0 g/dl [facility] Red Cell Distribution Width 13.3 11.0 - 16.0 % [facility] Platelet Count 302 160 - 400 X10*3/uL [facility] Mean Platelet Volume 10.5 9.4 - 12.3 fL [facility] Neutrophils Percent Auto 64.5 45 - 73 % [facility] Imm Gran Pct Auto 0.7(H) 0.0 - 0.4 % [facility] Lymphocytes Percent Auto 25.9 20 - 40 % [facility] Monocytes Percent Auto 5.3 2 - 11 % [facility] Eosinophils Percent Auto 3.1 0 - 4 % [facility] Basophils Percent Auto 0.5 0 - 2 % [facility] NRBC Pct Auto 0.0 0.0 - 0.2 /100WBC [facility] Neutrophils Absolute Auto 6.8 2.0 - 8.3 x10*3/uL [facility] Imm Gran Abs Auto 0.07(H) 0.00 - 0.03 X10*3/uL [facility] Lymphocytes Absolute Auto 2.7 1.2 - 4.9 X10*3/uL [facility] Monocytes Absolute Auto 0.6 0.1 - 1.2 X10*3/uL [facility] Eosinophils Absolute Auto 0.3 0.0 - 0.4 X10*3/uL [facility] Basophils Absolute Auto 0.1 0.0 - 0.2 X10*3/uL [facility] NRBC Abs Auto 0.000 0.0 - 0.012 X10*3/uL [facility] 10/05/2024 10:3 8 AM EDT 10/05/2024 10:38 AM EDT us Generic External Data Provider LAB BLOOD ORDERAB LES Final Result Performing Organization Address [facility]/ZIP Co de Phone Number [facility] [address] [place] [phone] * (ABNORMAL) PTH, Intact Without Calcium (10/05/2024 10:38 AM EDT) Parathyroid Hormone, Intact 106.8(H) 8.7 - 77.1 pg/mL [facility] 10/05/2024 10:3 8 AM EDT 10/05/2024 10:38 AM EDT us Generic External Data Provider LAB BLOOD ORDERAB LES Final Result Performing Organization Address City/[facility]/ZIP Co de Phone Number [facility] [address] [place] [address] [phone] * Hemoglobin A1c (10/05/2024 10:38 AM EDT) Hemoglobin A1c 5.8 <6.0 % [facility] Comment:Hemoglobin A1C Refer ence Range Adults: 4.8 - 6.0 % Non diabetic: < 6.0 % Goal: < 7.0 %Additional Action Suggested: > 8.0 %Note: Hemoglobin A1c results are invalid for patients with abnormal amounts of HbF. Blood transfusions may impact the HbA1c concentration in the patient sample. Estimated Average Glucose 120 mg/dL [facility] Comment:eAG = Estimated ave rage glucose which is %A1C expressed asaverage glucose, using the formula of the W3W-EuoxcnrJjvqbwn Glucose study (ADAG), Diabetes Care, Vol.31,#8,Feb. 2007 Blood Venous blood specimen / Unknown 10/05/2024 10:38 AM EDT 10/05/2024 10:38 AM EDT us Marie Canchola MD LAB BLOOD ORDERABLES Final Resul t [facility] [address] [place] [address] [phone] * (ABNORMAL) Basic Metabolic Panel (10/05/2024 10:38 AM EDT) Sodium 141 135 - 145 mmol/L [facility] Potassium 4.5 3.3 - 5.1 mmol/L [facility] Chloride 106 96 - 108 mmol/L [facility] Carbon Dioxide 27 22 - 29 mmol/L [facility] Anion Gap 13 12 - 20 [facility] Urea Nitrogen (BUN) 41(H) 9 - 16 mg/dL [facility] Creatinine, Serum 1.46(H) 0.5 - 1.4 mg/dL [facility] Estimated Glomerular Filt Rate 34 [facility] Comment:Chronic Kidney Disea se: Estimated GFR < 60 mL/min/1.29y6Fpgguz Kidney Disease: Estimated GFR < 15 mL/min/1.73m2 Glucose 98 60 - 115 mg/dL [facility] Calcium 9.3 8.4 - 10.2 mg/dL [facility] 10/05/2024 10:3 8 AM EDT 10/05/2024 10:38 AM EDT us Generic External Data Provider LAB BLOOD ORDERAB LES Final Result Performing Organization Address City/State/[facility] Co de Phone Number [facility] [address] [place] [address] [phone] from Last 3 Months Insurance [facility] Care Teams Ultrasound Technician Relationship Specialty Start Date End Date Marie Canchola MD [address] [place] [address] PCP - General Family Medicine 07/26/18 Khadar Menezes, PharmD [address] [place] [address] Pharmacist Internal Medicine 03/31/24
--- OUTSIDE RECORDS SUMMARY | 2024-10-17 12:20 | XMS_ITS | Data Portability ---
Author Organization [employer] [place] [employer] Address [address] [place] [phone] Care Team Providers Care Dietitian Name Role Phone HIM CCA OTHER Assessment Encounter Date Assessment Date Assessment LastModified by Organization Details LastModified Time 11/23/2023 11/23/2023 I provided real -time medical direction via phone for this encounter and was available for additional phone-based assistance as needed. I have reviewed and agree with the Assessment and Plan as documented by the Harmonica Maker. Patient given the opportunity to ask questions. Our service contacted for an assessment of: foot rash As per above, patient with several weeks of having an itchy feeling between toes on the left foot. Also describes some redness there. Denies any other rashes. Has had this before and it responded to OTC lotrimin Per bridge teacher on the scene, VSS. Please see uploaded [...] SNOMED-CT Code Diagnosis ICD10 Code Diagnosis Note [id number] Phyllis Jordan MD [address] [phone] 11/23/2023 16:47:52 11/23/2023 20:03:23 Taylor aquino [id number] B35.3 Health Concerns Section Related Observation LastModified by Organization Detai ls LastModified Time None Recorded Concern Status LastModified by Organization Details LastModified Time None Recorded Advance Directives Directive None Recorded Payers Encounter Date Sequence Insurance Name Policy Number Policy [place] Covered Member ID [place] Member ID Guarantor Name 11/23/[address] [facility] - DOS ON OR AFTER 2022 - DUAL ELIGIBLE - NURSING HOME OPTIONS AND ONE CARE (MEDICARE REPLACEMENT/ADV ANTAGE - HMO) Linette Fierro [id number] Linette Fierro Notes Date Note Type Note [...] ................. ................. ................. ................. ................. ................. ..... Harmonica Maker Note From Dhruv Rivera: Dispatched to the [...] ................. ..... Disposition: Dahlia Jordan MD [address] [facility],[address], [place], [address], [place] 11/23/2023 16:54:37 OBGyn Episode No OBEpisode recorded.
--- OUTSIDE RECORDS SUMMARY | 2024-10-17 12:20 | XMS_ITS | Encounter Summary ---
Author Organization [employer] Address [address] [facility] [address] [place] [address] Care Team Providers Care Junior Graphic Designer Name Role Phone Marie Canchola MD Primary Care Provider [phone] Khadar Menezes PharmD Unavailable [phone] Encounter Details Date Type Department Care Team ([facility] st Contact Info) Description 10/05/2024 Orders Only GENERIC EXTERNAL DATA DEPARTMENT Provider, Generic External Data Social History Tobacco Use Types Packs/Day Years [...] Menezes, PharmD documented as of this encounter Procedures Procedure Name Priority Date/Time Associated Diagnosis Comments CBC WITH AUTO DIFFERENTIAL Routine 10/05/2024 10:38 AM EDT PTH, INTACT WITHOUT CALCIUM Routine 10/05/2024 10:38 AM EDT BASIC METABOLIC PANEL Routine 10/05/2024 10:38 AM EDT documented in this encounter Results * (ABNORMAL) PTH, Intact Without Calcium (10/05/2024 10:38 AM EDT) Parathyroid Hormone, Intact 106.8(H) 8.7 - 77.1 pg/mL [facility] 10/05/2024 10:3 8 AM EDT 10/05/2024 10:38 AM EDT us Generic External Data Provider LAB BLOOD ORDERAB LES Final Result [facility] [address] [place] [phone] * (ABNORMAL) Basic Metabolic Panel (10/05/2024 10:38 AM EDT) Sodium 141 135 - 145 mmol/L [facility] Potassium 4.5 3.3 - 5.1 mmol/L [facility] Chloride 106 96 - 108 mmol/L [facility] Carbon Dioxide 27 22 - 29 mmol/L [facility] Anion Gap 13 12 - 20 [facility] Urea Nitrogen (BUN) 41(H) 9 - 16 mg/dL [facility] Creatinine, Serum 1.46(H) 0.5 - 1.4 mg/dL [facility] Estimated Glomerular Filt Rate 34 [facility] Comment:Chronic Kidney Disea se: Estimated GFR < 60 mL/min/1.78y9Ydivci Kidney Disease: Estimated GFR < 15 mL/min/1.73m2 Glucose 98 60 - 115 mg/dL [facility] Calcium 9.3 8.4 - 10.2 mg/dL [facility] 10/05/2024 10:3 8 AM EDT 10/05/2024 10:38 AM EDT us Generic External Data Provider LAB BLOOD ORDERAB LES Final Result Performing Organization Address City/State/[facility] Co de Phone Number [facility] [address] [place] [phone] * (ABNORMAL) CBC auto differential (10/05/2024 10:38 AM EDT) White Blood Count 10.6 4.8 - 10.8 X10*3/uL [facility] Red Blood Count 4.58 4.20 - 5.50 X10*6/uL [facility] Hemoglobin 12.6 12.0 - 16.0 g/dl [facility] Hematocrit 39.9 37.0 - 47.0 % [facility] Mean Corpuscular Volume 87.1 80.0 - 98.0 fL [facility] Mean Corpuscular Hemoglobin 27.5 27.0 - 33.0 pg [facility] Mean Corpuscular HGB Conc 31.6 31.0 - 35.0 g/dl [facility] Red Cell Distribution Width 13.3 11.0 - 16.0 % [facility] Platelet Count 302 160 - 400 X10*3/uL [facility] Mean Platelet Volume 10.5 9.4 - 12.3 fL [facility] Neutrophils Percent Auto 64.5 45 - 73 % [facility] Imm Gran Pct Auto 0.7(H) 0.0 - 0.4 % [facility] Lymphocytes Percent Auto 25.9 20 - 40 % [facility] Monocytes Percent Auto 5.3 2 - 11 % [facility] Eosinophils Percent Auto 3.1 0 - 4 % [facility] Basophils Percent Auto 0.5 0 - 2 % [facility] NRBC Pct Auto 0.0 0.0 - 0.2 /100WBC [facility] Neutrophils Absolute Auto 6.8 2.0 - 8.3 x10*3/uL [facility] Imm Gran Abs Auto 0.07(H) 0.00 - 0.03 X10*3/uL [facility] Lymphocytes Absolute Auto 2.7 1.2 - 4.9 X10*3/uL [facility] Monocytes Absolute Auto 0.6 0.1 - 1.2 X10*3/uL [facility] Eosinophils Absolute Auto 0.3 0.0 - 0.4 X10*3/uL [facility] Basophils Absolute Auto 0.1 0.0 - 0.2 X10*3/uL [facility] NRBC Abs Auto 0.000 0.0 - 0.012 X10*3/uL [facility] 10/05/2024 10:3 8 AM EDT 10/05/2024 10:38 AM EDT us Generic External Data Provider LAB BLOOD ORDERAB LES Final Result [facility] [address] [place] [phone] documented in this encounter Visit Diagnoses Not on filedocumented in this encounter Additional Health Concerns Assessment Noted Time PHQ-9 Depression Total Score: 0 11/16/19 24 1:28 PM EDT documented as of this encounter Care Teams Junior Graphic Designer Relationship Specialty Start Date End Date Marie Canchola MD [address] [place] [phone] PCP - General Family Medicine 07/26/18 Khadar Menezes, PharmD [address] [place] [address] [place] [phone] Pharmacist Internal Medicine 03/31/24 documented as of this encounter
--- OUTSIDE RECORDS SUMMARY | 2024-10-17 12:20 | XMS_ITS | Clinical Summary ---
Author Organization [facility] Address [address] [place] [address] Phone Care Team Providers Care Plywood And Veneer Repairer Name Role Phone Unavailable Primary Care Provider [...] lesion when pt went to ED in [place] in 2019, Question of multiple myeloma -Seen [...] (03/12/2023): Last Assessment & Plan: -Followed by filer finish for CKDIII, Hx hyperparathyroidism, hx kidney stone. [...] patient's age to complete this topic Insurance [facility] ([id number]) [facility] ([id number])
--- OUTSIDE RECORDS SUMMARY | 2024-10-17 12:20 | XMS_ITS | Encounter Summary ---
Author Organization [employer] Address [address] [facility] 7[address] [place] [address] Care Team Providers Care Professional Golf Tournament Player Name Role Phone Marie Canchola MD Primary Care Provider [phone] Khadar Menezes PharmD Unavailable [phone] Reason for Visit * Reason Onset Date Comments Med Refill 10/04/2024 Encounter Details Date Type Department Care Team (Late st Contact Info) Description 10/04/2024 Telephone [facility] MEDICINE [address] [place], [place] [phone] Marie Canchola MD [address] [place], [place] [phone] Med Refill Social History Tobacco Use Types Packs/Day Years [...] encounter Miscellaneous Notes * Telephone Encounter - Adelaida Ryder LPN - 10/04/2024 2:45 PM EDT Medication requested has refills * Telephone Encounter - Sveta Pretty - 10/04/2024 2:41 PM EDT TC from pt requesting medication refill. Medications needing refill : losartan (Cozaar) 100 MG tablet To be sent to: [facility] [id number] [place] [facility] - [address] documented in this encounter Plan of Treatment [...] documented as of this encounter Care Teams Professional Golf Tournament Player Relationship Specialty Start Date End Date Marie Canchola MD [address] [place] [address] PCP - General Family Medicine 07/26/18 Khadar Menezes, PharmD [address] [place] [phone] Pharmacist Internal Medicine 03/31/24 documented as of this encounter
== END 2024-10-17 10:46 | disposition home or self-care (01) ==
LOC: HO.HKA 10:16
PROVIDERS: PCP Family Medicine; Visit Provider Internal Medicine Hypertension Specialist
DX: N18.30 Chronic kidney disease, stage 3 unspecified (principal); E21.3 Hyperparathyroidism, unspecified; Z87.442 Personal history of urinary calculi
CPT/HCPCS: 99214

== ENCOUNTER 2024-10-17 10:56 | Outpatient (REF) | payer OTHER, SELFPAY ==
[2024-10-17 13:43] LABS: Anion Gap 9 (12-20); Blood Urea Nitrogen 24 mg/dL (9-16); Calcium 9.2 mg/dL (8.4-10.2); Carbon Dioxide 27 mmol/L (22-29); Chloride 109 mmol/L (96-108); Estimated Glomerular Filt Rate 48; Glucose Random 91 mg/dL (60-115); Potassium 4.3 mmol/L (3.3-5.1); Sodium 141 mmol/L (135-145)
[2024-10-17 14:31] LABS: Parathyroid Hormone Intact 81.2 pg/mL (8.7-77.1)
[2024-10-18 17:33] LABS: Complement C3 166 mg/dL
[2024-10-19 21:09] LABS: Prot Elec - Albumin 3.9 g/dL (3.8-4.8); Prot Elec - Alpha1 0.3 g/dL (0.2-0.3); Prot Elec - Alpha2 0.7 g/dL (0.5-0.9); Prot Elec - Beta 1 0.5 g/dL (0.4-0.6); Prot Elec - Beta 2 0.5 g/dL (0.2-0.5); Prot Elec - Gamma 1.1 g/dL (0.8-1.7); Prot Elec - Total Protein 6.9 g/dL (6.1-8.1)
[2024-10-20 08:03] LABS: IgA 228 mg/dL (70-320); IgG 1268 mg/dL (600-1540); IgM 45 mg/dL (50-300)
== END 2024-10-17 10:57 | disposition home or self-care (01) ==
LOC: HO.10HDL 10:56
PROVIDERS: Visit Provider Internal Medicine Hypertension Specialist
DX: N18.30 Chronic kidney disease, stage 3 unspecified (principal)
CPT/HCPCS: 36415; 80048; 82784; 83970; 84165; 86160; 86334; 99212

== ENCOUNTER 2024-10-25 09:47 | Outpatient (REF) | payer OTHER, SELFPAY ==
--- NOTE | ~2024-10-25 | US_ITS ---
CLINICAL HISTORY: I10 - Essential (primary) hypertension US kidneys and bladder Comparison: None Findings: Right kidney 9.3 cm length. Mild right hydronephrosis noted. No significant focal abnormality. Multiple subcentimeter cysts. Left kidney 8.7 cm length. No significant focal abnormality. Multiple subcentimeter cysts. Largest cyst measures 1.2 cm. Increased bilateral renal echogenicity. The urinary bladder is unremarkable. Bilateral ureteral jets visualized. Impression: Increased renal echogenicity consistent with chronic disease Mild right hydronephrosis This document has been electronically signed by: Timo Larsen MD on 10/25/2024 19:46:54
--- OUTSIDE RECORDS SUMMARY | 2024-10-25 11:08 | XMS_ITS | Encounter Summary ---
Author Organization [employer] Address [address] [facility] 7[address] [place] [address] Care Team Providers Care Insole Tack Puller Hand Name Role Phone Marie Canchola MD Primary Care Provider [phone] Khadar Menezes PharmD Unavailable [phone] Encounter Details Date Type Department Care Team ([facility] st Contact Info) Description 12/07/2023 Orders Only [facility] MEDICINE [address] [place], [place] [phone] Marie Canchola MD [address] [place], [place] [phone] Social History Tobacco Use Types Packs/Day Years [...] documented as of this encounter Care Teams Insole Tack Puller Hand Relationship Specialty Start Date End Date Marie Canchola MD [address] [place] [address] PCP - General Family Medicine 07/26/18 Khadar Menezes, SandraD [address] [place] [address] Pharmacist Internal Medicine 03/31/24 documented as of this encounter
--- OUTSIDE RECORDS SUMMARY | 2024-10-25 11:08 | XMS_ITS | Clinical Summary ---
Author Organization [facility] Address [address] [place] [address] Phone Care Team Providers Care Helper Coordinator Name Role Phone Unavailable Primary Care Provider [...] lesion when pt went to ED in [place] in 2019, Question of multiple myeloma -Seen [...] (03/12/2023): Last Assessment & Plan: -Followed by substation maintenance technician for CKDIII, Hx hyperparathyroidism, hx kidney stone. [...] patient's age to complete this topic Insurance [facility] ([id number]) [facility] ([id number])
--- OUTSIDE RECORDS SUMMARY | 2024-10-25 11:08 | XMS_ITS | Clinical Summary ---
Author Organization [employer] Address [address] [facility] 7[address] [place] [address] Care Team Providers Care Blood Bank Order Control Clerk Name Role Phone Marie Canchola MD Primary Care Provider [phone] Khadar Menezes PharmD Unavailable [phone] Allergies Active Allergy Reactions Criticality Noted Date [...] lesion when pt went to ED in [place] in 2019, Question of multiple myeloma -Seen [...] lesion when pt went to ED in [place] in 2019, Question of multiple myeloma -Seen [...] patients with CKD. Consider alternative -seen by [facility] Endocrinology provider in November 2023. Recommended to [...] patients with CKD. Consider alternative -seen by [facility] Endocrinology provider in November 2023. Recommended to [...] ACC/AHA guideline -Hx white-coat hypertension -Co-managed with emd teacher and our pharamcist -Elevated BP today, patient reports fluctuating BP -Continue working on lifestyle modifications. -Continue metoprolol succinate 50 mg daily. -Continue losartan 100 mg daily -Continue checking home BP -She will contact us if her home BP is elevated persistently Assessment & Plan (07/03/2024 12:52 PM EST): -Goal BP < 130/80 per ACC/AHA guideline -Hx white-coat hypertension -Co-managed with emd teacher and our pharamcist -Elevated BP today, patient [...] Plan (09/29/2024 12:51 AM EST): -Followed by emd teacher for CKDIII, Hx hyperparathyroidism, hx kidney stone. Last seen in May 2024 -Continue current meds. -Avoid nephrotoxic drugs Assessment & Plan (07/03/2024 12:53 PM EST): -Followed by emd teacher for CKDIII, Hx hyperparathyroidism, hx kidney stone. Last seen in May 2024 -Continue current meds. -Avoid nephrotoxic drugs Assessment & Plan (03/13/2024 4:26 PM EDT): -Followed by emd teacher for CKDIII, Hx hyperparathyroidism, hx kidney stone. Last seen in January 2024, q6m visit. -Continue current meds. -Avoid nephrotoxic drugs Assessment & Plan (11/16/2023 3:00 PM EDT): -Followed by emd teacher for CKDIII, Hx hyperparathyroidism, hx kidney stone. Last seen in Feb 2023 -Continue current meds. -Avoid nephrotoxic drugs Assessment & Plan (08/22/2023 3:23 PM EST): -Followed by emd teacher for CKDIII, Hx hyperparathyroidism, hx kidney stone. Last seen in Feb 2023 -Continue current meds. -Avoid nephrotoxic drugs Assessment & Plan (04/26/2023 5:03 AM EDT): -Followed by emd teacher for CKDIII, Hx hyperparathyroidism, hx kidney stone. Last seen on 03/15/23. -Lab 06/30/21, K 4.4; BUN 29; SCr 1.29; eGFR 40 -Continue current meds. -Avoid nephrotoxic drugs Assessment & Plan (11/03/2022 1:35 PM EDT): -Followed by emd teacher for CKDIII, Hx hyperparathyroidism, hx kidney stone. -Lab 06/30/21, K 4.4; BUN 29; SCr 1.29; eGFR 40 -Continue current meds. -Avoid nephrotoxic drugs Assessment & Plan (07/26/2022 10:36 AM EST): -Followed by emd teacher for CKDIII, Hx hyperparathyroidism, hx kidney stone. [...] DEPARTMENT Provider, Generic External Data 10/04/[address] [address] Marie Canchola MD Med Refill 09/28/2024 11:00 AM EST Office Visit [facility] [address] [place] [address] Marie Canchola MD Essential hypertension (Primary Dx); Mild intermittent asthma without complication; Stage 3b chronic kidney disease (CMS/HCC); Osteopenia of multiple sites; Impaired fasting glucose; Acquired hypothyroidism; Allergic rhinitis, unspecified seasonality, unspecified trigger; Hypercholesterolemia 09/28/2024 Travel 09/26/2024 Telephone [facility] [address] [place] [address] Marie Canchola MD chart prep 08/24/2024 Refill [facility] [address] [place] [address] Marie Canchola MD Acquired hypothyroidism from Last [...] this topic Meningococcal Vaccine Aged Out No liz devin eligible based on patient's age to [...] Free T4 1.59 0.32 - 4.0 uIU/mL [facility] Blood 10/05/2024 10:3 8 AM EDT 10/05/2024 10:38 AM EDT us Marie Canchola MD LAB BLOOD ORDERABLES Final Resul t [facility] [address] [place] [phone] * Lipid Panel with Reflex to Direct LDL (10/05/2024 10:38 AM EDT) Triglycerides 143 <150 mg/dL [facility] Comment:Desirable Triglyceri de: less than 150 mg/dLBorderline High Triglyceride 150-199 mg/dLHigh Triglyceride: 200-499 mg/dLVery High Triglyceride: greater than or equal to 5OO mg/dL Cholesterol 181 <200 mg/dL [facility] Comment:Desirable Cholestero l: less than 200 mg/dLBorderline High Cholesterol: 200-239 mg/dLHigh Cholesterol: greater than 239 mg/dL LDL Cholesterol Calculated 93 <100 mg/dL [facility] Comment:Desirable LDL: less than 100 mg/dLNear Optimal/Above Optimal LDL: 110- 129 mg/dLBorderline High LDL: 130-159 mg/dLHigh LDL: 160-189 mg/dLVery High LDL: greater than or equal to 190 mg/dL HDL Cholesterol 60 >40 mg/dL [facility] Comment:Desirable HDL: great er than 40 mg/dL Note: This HDL assay may give artificially low results in patients with liver disease. Blood 10/05/2024 10:3 8 AM EDT 10/05/2024 10:38 AM EDT us Marie Canchola MD LAB BLOOD ORDERABLES Final Resul t [facility] [address] [place] [phone] * (ABNORMAL) CBC auto differential (10/05/2024 10:38 AM EDT) White Blood Count 10.6 4.8 - 10.8 X10*3/uL [facility] Red Blood Count 4.58 4.20 - 5.50 X10*6/uL [facility] Hemoglobin 12.6 12.0 - 16.0 g/dl [facility] Hematocrit 39.9 37.0 - 47.0 % [facility] Mean Corpuscular Volume 87.1 80.0 - 98.0 fL [facility] Mean Corpuscular Hemoglobin 27.5 27.0 - 33.0 pg [facility] Mean Corpuscular HGB Conc 31.6 31.0 - 35.0 g/dl [facility] Red Cell Distribution Width 13.3 11.0 - 16.0 % [facility] Platelet Count 302 160 - 400 X10*3/uL [facility] Mean Platelet Volume 10.5 9.4 - 12.3 fL [facility] Neutrophils Percent Auto 64.5 45 - 73 % [facility] Imm Gran Pct Auto 0.7(H) 0.0 - 0.4 % [facility] Lymphocytes Percent Auto 25.9 20 - 40 % [facility] Monocytes Percent Auto 5.3 2 - 11 % [facility] Eosinophils Percent Auto 3.1 0 - 4 % [facility] Basophils Percent Auto 0.5 0 - 2 % [facility] NRBC Pct Auto 0.0 0.0 - 0.2 /100WBC [facility] Neutrophils Absolute Auto 6.8 2.0 - 8.3 x10*3/uL [facility] Imm Gran Abs Auto 0.07(H) 0.00 - 0.03 X10*3/uL [facility] Lymphocytes Absolute Auto 2.7 1.2 - 4.9 X10*3/uL [facility] Monocytes Absolute Auto 0.6 0.1 - 1.2 X10*3/uL [facility] Eosinophils Absolute Auto 0.3 0.0 - 0.4 X10*3/uL [facility] Basophils Absolute Auto 0.1 0.0 - 0.2 X10*3/uL [facility] NRBC Abs Auto 0.000 0.0 - 0.012 X10*3/uL [facility] 10/05/2024 10:3 8 AM EDT 10/05/2024 10:38 AM EDT us Generic External Data Provider LAB BLOOD ORDERAB LES Final Result Performing Organization Address [facility]/ZIP Co de Phone Number [facility] [address] [place] [phone] * (ABNORMAL) PTH, Intact Without Calcium (10/05/2024 10:38 AM EDT) Parathyroid Hormone, Intact 106.8(H) 8.7 - 77.1 pg/mL [facility] 10/05/2024 10:3 8 AM EDT 10/05/2024 10:38 AM EDT us Generic External Data Provider LAB BLOOD ORDERAB LES Final Result Performing Organization Address City/[facility]/ZIP Co de Phone Number [facility] [address] [place] [phone] * Hemoglobin A1c (10/05/2024 10:38 AM EDT) Hemoglobin A1c 5.8 <6.0 % [facility] Comment:Hemoglobin A1C Refer ence Range Adults: 4.8 - 6.0 % Non diabetic: < 6.0 % Goal: < 7.0 %Additional Action Suggested: > 8.0 %Note: Hemoglobin A1c results are invalid for patients with abnormal amounts of HbF. Blood transfusions may impact the HbA1c concentration in the patient sample. Estimated Average Glucose 120 mg/dL [facility] Comment:eAG = Estimated ave rage glucose which is %A1C expressed asaverage glucose, using the formula of the S3H-IexvqasCsusfyx Glucose study (ADAG), Diabetes Care, Vol.31,#8,Feb. 2007 Blood Venous blood specimen / Unknown 10/05/2024 10:38 AM EDT 10/05/2024 10:38 AM EDT us Marie Canchola MD LAB BLOOD ORDERABLES Final Resul t [facility] [address] [place] [phone] * (ABNORMAL) Basic Metabolic Panel (10/05/2024 10:38 AM EDT) Sodium 141 135 - 145 mmol/L [facility] Potassium 4.5 3.3 - 5.1 mmol/L [facility] Chloride 106 96 - 108 mmol/L [facility] Carbon Dioxide 27 22 - 29 mmol/L [facility] Anion Gap 13 12 - 20 [facility] Urea Nitrogen (BUN) 41(H) 9 - 16 mg/dL [facility] Creatinine, Serum 1.46(H) 0.5 - 1.4 mg/dL [facility] Estimated Glomerular Filt Rate 34 [facility] Comment:Chronic Kidney Disea se: Estimated GFR < 60 mL/min/[id number] Kidney Disease: Estimated GFR < 15 mL/min/1.73m2 Glucose 98 60 - 115 mg/dL [facility] Calcium 9.3 8.4 - 10.2 mg/dL [facility] 10/05/2024 10:3 8 AM EDT 10/05/2024 10:38 AM EDT us Generic External Data Provider LAB BLOOD ORDERAB LES Final Result Performing Organization Address City/State/[facility] Co de Phone Number [facility] [address] [place] [phone] from Last 3 Months Insurance [facility] Care Teams Blood Bank Order Control Clerk Relationship Specialty Start Date End Date Marie Canchola MD [address] [place] [address] PCP - General Family Medicine 07/26/18 Khadar Menezes, PharmD [address] [place] [address] Pharmacist Internal Medicine 03/31/24
--- OUTSIDE RECORDS SUMMARY | 2024-10-25 11:08 | XMS_ITS | Data Portability ---
Author Organization [employer] Address [address] [place] [phone] Care Team Providers Care Sonoscope Operator Name Role Phone HIM CCA OTHER Assessment Encounter Date Assessment Date Assessment LastModified by Organization Details LastModified Time 11/23/2023 11/23/2023 I provided real -time medical direction via phone for this encounter and was available for additional phone-based assistance as needed. I have reviewed and agree with the Assessment and Plan as documented by the Tow Feeder. Patient given the opportunity to ask questions. Our service contacted for an assessment of: foot rash As per above, patient with several weeks of having an itchy feeling between toes on the left foot. Also describes some redness there. Denies any other rashes. Has had this before and it responded to OTC lotrimin Per chili maker on the scene, VSS. Please see uploaded [...] SNOMED-CT Code Diagnosis ICD10 Code Diagnosis Note [id number] Phyllis Jordan MD [address] [address] 11/23/2023 16:47:52 11/23/2023 20:03:23 Taylor aquino [id number] B35.3 Health Concerns Section Related Observation LastModified by Organization Detai ls LastModified Time None Recorded Concern Status LastModified by Organization Details LastModified Time None Recorded Advance Directives Directive None Recorded Payers Encounter Date Sequence Insurance Name Policy Number Policy Gillette Covered Member ID Gillette Member ID Guarantor Name 11/23/2023 1 [facility] - DOS ON OR AFTER 2022 - DUAL ELIGIBLE - [employer] OPT[employer] AND ONE CARE (MEDICARE REPLACEMENT/ADV ANTAGE - HMO) Linette Fierro [id number] Linette Fierro Notes Date Note Type Note [...] ................. ................. ................. ................. ................. ................. ..... Tow Feeder Note From Dhruv Rivera: Dispatched to the [...] ................. ..... Disposition: Dahlia Jordan MD [address], [place], [phone], [employer] 11/23/2023 16:54:37 OBGyn Episode No OBEpisode recorded.
== END 2024-10-25 09:48 | disposition home or self-care (01) ==
LOC: HO.US 09:47
PROVIDERS: PCP Family Medicine; Visit Provider Internal Medicine Hypertension Specialist
DX: I12.9 Hypertensive chronic kidney disease with stage 1 through stage 4 chronic kidney disease, or unspecified chronic kidney disease (principal); N18.30 Chronic kidney disease, stage 3 unspecified
CPT/HCPCS: 76775

== ENCOUNTER → 2024-10-25 09:50 | Outpatient (BNV) | payer OTHER, SELFPAY | PROVIDERS: PCP Family Medicine; Visit Provider Radiology Diagnostic Radiology | DX: I10 Essential (primary) hypertension (principal) | CPT/HCPCS: 76775 ==

== ENCOUNTER 2024-11-16 11:00 | Outpatient (REF) | payer OTHER, SELFPAY ==
--- OUTSIDE RECORDS SUMMARY | 2024-11-16 12:58 | XMS_ITS | Clinical Summary ---
Author Organization [facility] Address [address] [place] [address] Phone Care Team Providers Care Fisherman Helper Name Role Phone Unavailable Primary Care Provider [...] lesion when pt went to ED in [place] in 2019, Question of multiple myeloma -Seen [...] (03/12/2023): Last Assessment & Plan: -Followed by endoscopy support specialist for CKDIII, Hx hyperparathyroidism, hx kidney stone. [...] CKD -Continue working on lifestyle modificaitons Immunizations Immunization Administration Dates Next Due Influenza Split 05/09/2013,05/26/2012 [...] Due Date Last Done Comments Influenza Vaccine (Season Ended) 2025 06/25/2021, 07/24/2019, 08/11/2018, Additional history exists Pneumococcal Vaccine: 50+ Years Completed 06/27/2015, 09/04/2008 Pneumococcal Vaccine: Peds (0 to 5 Years) and At-Risk Patients (6 to 49 Years) Discontinued 06/27/2015, 09/04/2008 Hepatitis B Vaccine Aged Out No longe r eligible based on patient's age to complete this topic Insurance [facility] ([id number]) [facility] MCR ([id number])
--- OUTSIDE RECORDS SUMMARY | 2024-11-16 12:58 | XMS_ITS | Data Portability ---
Author Organization [employer] Address [address] [place] [phone] Care Team Providers Care Creative Arts Therapist Name Role Phone HIM CCA OTHER Assessment Encounter Date Assessment Date Assessment LastModified by Organization Details LastModified Time 11/23/2023 11/23/2023 I provided real -time medical direction via phone for this encounter and was available for additional phone-based assistance as needed. I have reviewed and agree with the Assessment and Plan as documented by the Educational Assistant. Patient given the opportunity to ask questions. Our service contacted for an assessment of: foot rash As per above, patient with several weeks of having an itchy feeling between toes on the left foot. Also describes some redness there. Denies any other rashes. Has had this before and it responded to OTC lotrimin Per public school teacher on the scene, VSS. Please see [...] SNOMED-CT Code Diagnosis ICD10 Code Diagnosis Note [id number] Phyllis Jordan MD [address] [address] 11/23/2023 16:47:52 11/23/2023 20:03:23 Taylor aquino [id number] B35.3 Health Concerns Section Related Observation LastModified by Organization Detai ls LastModified Time None Recorded Concern Status LastModified by Organization Details LastModified Time None Recorded Advance Directives Directive None Recorded Payers Encounter Date Sequence Insurance Name Policy Number Policy Gillette Covered Member ID Gillette Member ID Guarantor Name 11/23/2023 1 [facility] - DOS ON OR AFTER 2022 - DUAL ELIGIBLE - [employer] OPTIONS AND ONE CARE (MEDICARE REPLACEMENT/ADV ANTAGE - HMO) Linette Fierro [id number] Linette Fierro Notes Date Note Type Note [...] ................. ................. ................. ................. ................. ................. ..... Educational Assistant Note From Dhruv Rivera: Dispatched to the [...] ................. ..... Disposition: Dahlia Jordan MD [address] [facility],[address], [place], [address], [employer] 11/23/2023 16:54:37 OBGyn Episode No OBEpisode recorded.
== END 2024-11-16 11:01 | disposition home or self-care (01) ==
LOC: HO.MAMMO 11:00
PROVIDERS: PCP Family Medicine; Visit Provider Family Medicine
DX: Z12.31 Encounter for screening mammogram for malignant neoplasm of breast (principal)
CPT/HCPCS: 77063; 77067

== ENCOUNTER → 2024-11-16 11:15 | Outpatient (BNV) | payer OTHER, SELFPAY | PROVIDERS: PCP Family Medicine; Visit Provider Internal Medicine | DX: Z12.31 Encounter for screening mammogram for malignant neoplasm of breast (principal) | CPT/HCPCS: 77063; 77067 ==

== ENCOUNTER 2024-12-05 11:17 | Outpatient (AMB) | payer OTHER, SELFPAY ==
[2024-12-05 11:24] VITALS: BP 180/78; PULSE 74; O2SAT 95
--- NOTE | 2024-12-05 11:24 | HO.NEPHOV ---
Vital Signs 12/05/24 11:24 Weight 180 lb BP 180/78 H Blood Pressure Location Rt brachial Position Sitting Pulse 74 Pulse Source Pulse Oximeter Pulse Oximetry (%) 95 Oxygen Delivery Method Room Air Intake Visit Reasons: FU. LVM Stabilizing Machine Operator Required: Yes Stabilizing Machine Operator Name: Kali Loving Accompanied by: Daughter Allergies ciprofloxacin [From Cipro] Allergy (Severe, Verified 12/05/24 11:26) RASH Iodinated Contrast Media [IV Dye, Iodine Containing] Allergy (Intermediate, Verified 12/05/24 11:26) RASH, ITCHY penicillin V Allergy (Mild, Verified 12/05/24 11:26) Unknown Medication List - Last Reconciled 12/05/24 by Jae Avina MD albuterol sulfate 90 mcg/actuation inhalation aspirin 81 mg PO DAILY atorvastatin 10 mg PO DAILY budesonide-formoterol 80-4.5 mcg/actuation (Symbicort) inhalation PRN cetirizine 5 mg PO BEDTIME cholecalciferol (vitamin D3) (Vitamin D3) 25 mcg PO DAILY levothyroxine 50 mcg PO DAILY losartan 100 mg PO DAILY metoprolol succinate ER 50 mg PO DAILY HPI Comments Details: Elderly woman with a history of longstanding hypertension nephrolithiasis. She is here for regular follow-up. Today she was accompanied by family members. No new complaints. No urinary symptoms. She is compliant with all her medications. Interpretor service was used 12/05/24 84-year-old female presenting with elevated blood pressure. She has difficulty recalling the last instance of seeing her primary care provider, planning to do so on December 28. Her routine blood pressure medications have been reportedly taken, yet her blood pressure remains high. It is noted that she had disrupted sleep, potentially contributing to this elevation. Additionally, the patient reports efforts towards managing dietary salt intake to control blood pressure. [facility] Medical History (Updated 10/21/23 @ 12:04 by Jae Avina MD) History of kidney stones Osteoporosis Bilateral cataracts Asthma Chronic kidney disease, stage 3 Hyperparathyroidism Hypercholesterolemia HTN (hypertension) History of CVA (cerebrovascular accident) Family History Other HTN (hypertension) History of kidney stones Social History Alcohol intake: never Physical Exam Vital Signs: Last Vital Signs Pulse 74 12/05/24 11:24 BP 180/78 H 12/05/24 11:24 Pulse Ox 95 12/05/24 11:24 Oxygen Delivery Method Room Air 12/05/24 11:24 Comfortable Neck supple no JVD. Lungs entry equal no rales. Heart S1-S2 heard no gallop or rub. Abdomen soft nontender. Neuro alert awake oriented. No asterixis. Extremities no edema. Results Reviewed Results Reviewed: Renal USG October 2024 Right kidney 9.3 cm length. Mild right hydronephrosis noted. No significant focal abnormality. Multiple subcentimeter cysts. Left kidney 8.7 cm length. No significant focal abnormality. Multiple subcentimeter cysts. Largest cyst measures 1.2 cm. Increased bilateral renal echogenicity. The urinary bladder is unremarkable. Bilateral ureteral jets visualized. Nephrology Results: Hgb 12.6 g/dl (12.0-16.0) 10/05/24 WBC 10.6 X10*3/uL (4.8-10.8) 10/05/24 Plt Count 302 X10*3/uL (160-400) 10/05/24 Sodium 141 mmol/L (135-145) 10/17/24 Potassium 4.3 mmol/L (3.3-5.1) 10/17/24 Chloride 109 mmol/L (96-108) H 10/17/24 Carbon Dioxide 27 mmol/L (22-29) 10/17/24 BUN 24 mg/dL (9-16) H 10/17/24 Creatinine 1.08 mg/dL (0.5-1.4) 10/17/24 Calcium 9.2 mg/dL (8.4-10.2) 10/17/24 PTH Intact 81.2 pg/mL (8.7-77.1) H 10/17/24 Urine Protein Negative mg/dL (Neg-Trace) 02/21/24 Urine Creatinine 79.76 mg/dL 02/21/24 Renal US 10/25/24 Assessment & Plan Assessment & Plan (1) Chronic kidney disease, stage 3: Code(s): N18.30 - Chronic kidney disease, stage 3 unspecified Category: Medical (2) Hyperparathyroidism: Code(s): E21.3 - Hyperparathyroidism, unspecified Category: Medical (3) History of kidney stones: Comment: surgery for removal of stones in [place] Code(s): Z87.442 - Personal history of urinary calculi Category: Medical Plan Elderly woman with a history of stage III CKD in a setting of longstanding hypertension nephrolithiasis. She has had hyperparathyroidism with elevated serum calcium in the past. She should stay on low-sodium diet. Increase p.o. fluid. Blood pressure be maintained less than 130/80 mm Hg. Creatinine is back to baseline BP sub optimal ADD AMlodipine 2.5 mg QD Orders: Orders Basic Metabolic Panel 4 Weeks N18.30 - Chronic kidney disease, stage 3 unspecified Medications: New amlodipine 2.5 mg PO DAILY 90 tabs 1RF Coding Level of Care Code Est Pt Level 4 (98188) Diagnoses Chronic kidney disease, stage 3 N18.30 Hyperparathyroidism E21.3 History of kidney stones Z87.442
--- OUTSIDE RECORDS SUMMARY | 2024-12-05 12:47 | XMS_ITS | Encounter Summary ---
Author Organization [employer] Address [address] [facility] [address] [place] [address] Care Team Providers Care Housekeeping Coordinator Name Role Phone Marie Canchola MD Primary Care Provider [phone] Khadar Menezes PharmD Unavailable [phone] Encounter Details Date Type Department Care Team ([facility] [address] Contact Info) Description 12/07/2023 Orders Only [facility] [address] [place], [place] [phone] Marie Canchola MD [address] [place], [place] [phone] Social History Tobacco Use Types Packs/Day Years [...] as of this encounter Plan of Treatment Upcoming Encounters Date Type Department Care Team (Late st Contact Info) Description 12/28/2024 11:30 AM EDT Office Visit [facility] [address] [place] [phone] Marie Canchola MD [address] [place] [address] documented as of this encounter Visit Diagnoses Not on filedocumented in this encounter Additional Health Concerns Assessment Noted Time PHQ-9 Depression Total Score: 0 11/16/19 24 1:28 PM EDT documented as of this encounter Care Teams Housekeeping Coordinator Relationship Specialty Start Date End Date Marie Canchola MD [address] [place] [phone] PCP - General Family Medicine 07/26/18 Khadar Menezes, SandraD [address] [place] [phone] Pharmacist Internal Medicine 03/31/24 documented as of this encounter
--- OUTSIDE RECORDS SUMMARY | 2024-12-05 12:47 | XMS_ITS | Encounter Summary ---
Author Organization [employer] Address [address] [facility] [address] [place] [address] Care Team Providers Care Special Needs Tutor Name Role Phone Marie Canchola MD Primary Care Provider [phone] Khadar Menezes PharmD Unavailable [phone] Reason for Visit * Reason Onset Date Comments Appointment Request 12/05/2024 Encounter Details Date Type Department Care Team ([facility] st Contact Info) Description 12/05/2024 Telephone [facility] [address] [place] [place], [place] [phone] Marie Canchola MD [address] [place], [place] [phone] Appointment Request Social History Tobacco Use Types Packs/Day Years [...] encounter Miscellaneous Notes * Telephone Encounter - Rita Hoffmann - 12/05/2024 9:39 AM EDT Tc from son notifying pt will be traveling January 04, 2025 doesn't have a return date as pt has to wait to arrive due to her niece whom helps her booking flights. son indicated pt needs a sooner recallappointment for physical. documented in this encounter Plan of Treatment Upcoming Encounters Date Type Department Care Team (Late st Contact Info) Description 12/28/2024 11:30 AM EDT Office Visit [facility] [address] [place] [id number] Marie Canchola MD [address] [place] [phone] documented as of this encounter Goals Goal Patient Goal Type Associated Problems Recent Progress Patient-Stated? Author Blood Pressure < 140/90 Blood Pressure 138/60( 025 12:19 PM EST) No Khadar Menezes, SandraD documented as of this encounter Visit Diagnoses Not on filedocumented in this encounter Additional Health Concerns Assessment Noted Time PHQ-9 Depression Total Score: 0 11/16/19 24 1:28 PM EDT documented as of this encounter Care Teams Special Needs Tutor Relationship Specialty Start Date End Date Marie Canchola MD [address] [place] [phone] PCP - General Family Medicine 07/26/18 Khadar Menezes, PharmD [address] [place] [address] [place] [phone] Pharmacist Internal Medicine 03/31/24 documented as of this encounter
--- OUTSIDE RECORDS SUMMARY | 2024-12-05 12:47 | XMS_ITS | Data Portability ---
Author Organization [employer] Address [address] [place] [id number] Care Team Providers Care Acid Dipper Name Role Phone HIM CCA OTHER Assessment Encounter Date Assessment Date Assessment LastModified by Organization Details LastModified Time 11/23/2023 11/23/2023 I provided real -time medical direction via phone for this encounter and was available for additional phone-based assistance as needed. I have reviewed and agree with the Assessment and Plan as documented by the Sales And Service Officer. Patient given the opportunity to ask questions. Our service contacted for an assessment of: foot rash As per above, patient with several weeks of having an itchy feeling between toes on the left foot. Also describes some redness there. Denies any other rashes. Has had this before and it responded to OTC lotrimin Per drier operator helper on the scene, VSS. Please see uploaded [...] SNOMED-CT Code Diagnosis ICD10 Code Diagnosis Note [id number] Phyllis Jordan MD [address] [phone] 11/23/2023 16:47:52 11/23/2023 20:03:23 Taylor aquino [id number] B35.3 Health Concerns Section Related Observation LastModified by Organization Detai ls LastModified Time None Recorded Concern Status LastModified by Organization Details LastModified Time None Recorded Advance Directives Directive None Recorded Payers Insurance Date Sequence Insurance Name Policy Number Policy [place] Covered Member ID [place] Member ID Guarantor Name 11/23/2023 1 [facility] - DOS ON OR AFTER 2022 - DUAL ELIGIBLE - [employer] AND ONE CARE (MEDICARE REPLACEMENT/ADV ANTAGE - HMO) Linette Fierro [id number] Linette Fierro Notes Date Note Type Note [...] ................. ................. ................. ................. ................. ................. ..... Sales And Service Officer Note From Dhruv Rivera: Dispatched to the [...] ................. ..... Disposition: Dahlia Jordan MD [address] [facility],[address], [place], [address], [employer] 11/23/2023 16:54:37 OBGyn Episode No OBEpisode recorded.
--- OUTSIDE RECORDS SUMMARY | 2024-12-05 12:47 | XMS_ITS | Clinical Summary ---
Author Organization [employer] Address [address] [facility] [address] [place] [address] Care Team Providers Care Dishwasher Preparer Name Role Phone Marie Canchola MD Primary Care Provider [phone] Khadar Menezes PharmD Unavailable [phone] Allergies Active Allergy Reactions Criticality Noted Date Comments Beef Allergy 07/22/2022 Nsaids 07/22/2022 Penicillins 07/22/2022 Quinolones 07/22/2022 Medications metoprolol succinate XL (Toprol-XL) 50 MG 24 hr tablet TOME KINSEY TABLETA TODOS LOS MENDEZ 90 tablet 3 4 Active D3-1000 25 MCG (1000 UT) tablet TOME KINSEY TABLETA POR VIA ORAL A DIARIO 90 tablet 3 4 Active aspirin (Aspirin Low Dose) 81 MG EC tablet TAKE 1 TABLET BY MOUTH EVERY DAY 90 tablet 3 4 Active Naphazoline-Glycer in (Clear Eyes Redness Relief) 0.012-0.25 % solution Instill 1-2 drops to each eye 1-2 times daily. Purchases OTC Active atorvastatin (Lipitor) 10 MG tabletIndications: Dyslipidemia TOME KINSEY TABLETA POR VIA ORAL AL ACOSTARSE 90 tablet 3 4 Active albuterol (Ventolin HFA) 108 (90 Base) MCG/ACT inhalerIndications :Mild intermittent asthma without complication 2 puffs every 4 hours as needed for wheezing or asthma symptoms. Maximum daily dose 8 puffs 18 g 1 4 Active losartan (Cozaar) 100 MG tabletIndications: Essential hypertension Take 1 tablet (100 mg) by mouth Once per day. 90 tablet 3 4 Active COVID-19 At-Home Test kit 1 kit by In Vitro route 1 (one) time if needed (cough, fever, malaise, and rhinorrhea. Or sick contact.) for up to 1 dose. 2 kit 1 4 Active levothyroxine (Synthroid, Levoxyl) 50 MCG tabletIndications: Acquired hypothyroidism TAKE 1 TABLET BY MOUTH EVERY DAY 90 tablet 3 5 Active cetirizine (ZyrTEC) 5 MG tabletIndications: Allergic rhinitis, unspecified seasonality, unspecified trigger Take 1 tablet (5 mg) by mouth at bedtime. 90 tablet 3 5 Active budesonide-formote rol (Symbicort) 80-4.5 MCG/ACT inhaler Take 2 puffs twice daily. May take additional 1-2 puffs every 4 hours as needed. Maximum 12 puffs per day. Rinse mouth with water after use to reduce aftertaste and incidence of candidiasis. Do not swallow. 1 each 11 5 Active Active Problems Problem Noted Date Diagnosed [...] patients with CKD. Consider alternative -seen by [facility] Endocrinology provider in November 2023. Recommended to [...] patients with CKD. Consider alternative -seen by [facility] Endocrinology provider in November 2023. Recommended to [...] ACC/AHA guideline -Hx white-coat hypertension -Co-managed with shipyard painter apprentice and our pharamcist -Elevated BP today, patient reports fluctuating BP -Continue working on lifestyle modifications. -Continue metoprolol succinate 50 mg daily. -Continue losartan 100 mg daily -Continue checking home BP -She will contact us if her home BP is elevated persistently Assessment & Plan (07/03/2024 12:52 PM EST): -Goal BP < 130/80 per ACC/AHA guideline -Hx white-coat hypertension -Co-managed with shipyard painter apprentice and our pharamcist -Elevated BP today, patient [...] Plan (09/29/2024 12:51 AM EST): -Followed by shipyard painter apprentice for CKDIII, Hx hyperparathyroidism, hx kidney stone. Last seen in May 2024 -Continue current meds. -Avoid nephrotoxic drugs Assessment & Plan (07/03/2024 12:53 PM EST): -Followed by shipyard painter apprentice for CKDIII, Hx hyperparathyroidism, hx kidney stone. Last seen in May 2024 -Continue current meds. -Avoid nephrotoxic drugs Assessment & Plan (03/13/2024 4:26 PM EDT): -Followed by shipyard painter apprentice for CKDIII, Hx hyperparathyroidism, hx kidney stone. Last seen in January 2024, q6m visit. -Continue current meds. -Avoid nephrotoxic drugs Assessment & Plan (11/16/2023 3:00 PM EDT): -Followed by shipyard painter apprentice for CKDIII, Hx hyperparathyroidism, hx kidney stone. Last seen in Feb 2023 -Continue current meds. -Avoid nephrotoxic drugs Assessment & Plan (08/22/2023 3:23 PM EST): -Followed by shipyard painter apprentice for CKDIII, Hx hyperparathyroidism, hx kidney stone. Last seen in Feb 2023 -Continue current meds. -Avoid nephrotoxic drugs Assessment & Plan (04/26/2023 5:03 AM EDT): -Followed by shipyard painter apprentice for CKDIII, Hx hyperparathyroidism, hx kidney stone. Last seen on 03/15/23. -Lab 06/30/21, K 4.4; BUN 29; SCr 1.29; eGFR 40 -Continue current meds. -Avoid nephrotoxic drugs Assessment & Plan (11/03/2022 1:35 PM EDT): -Followed by shipyard painter apprentice for CKDIII, Hx hyperparathyroidism, hx kidney stone. -Lab 06/30/21, K 4.4; BUN 29; SCr 1.29; eGFR 40 -Continue current meds. -Avoid nephrotoxic drugs Assessment & Plan (07/26/2022 10:36 AM EST): -Followed by shipyard painter apprentice for CKDIII, Hx hyperparathyroidism, hx kidney stone. [...] Encounters Date Type Department Care Team Description 12/05/2024 Telephone [facility] [place] [address] Marie Canchola MD Appointment Request 11/16/2024 Orders Only [facility] [place] [address] Marie Canchola MD 11/16/2024 Telephone [facility] [place] [address] Maryse Betancourt MA december recall 10/05/2024 Orders Only GENERIC EXTERNAL DATA DEPARTMENT Provider, Generic External Data 10/04/2024 Telephone [facility] [place] [address] Marie Canchola MD Med Refill 09/28/2024 11:00 AM EST Office Visit [facility] [place] [address] Marie Canchola MD Essential hypertension (Primary Dx); Mild intermittent asthma without complication; Stage 3b chronic kidney disease (CMS/HCC); Osteopenia of multiple sites; Impaired fasting glucose; Acquired hypothyroidism; Allergic rhinitis, unspecified seasonality, unspecified trigger; Hypercholesterolemia 09/28/2024 Travel 09/26/2024 Telephone [facility] [address] [place] [address] Marie Canchola MD chart prep from Last 3 Months Immunizations Name Administration [...] the past 12 months, has t he [place], gas, oil or water company threatened to [...] 08/16/2023 1:51 PM EST Plan of Treatment Upcoming Encounters Date Type Department Care Team (Late st Contact Info) Description 12/28/2024 11:30 AM EDT Office Visit [facility] [address] [place] [address] Marie Canchola MD [address] [place] [address] Health Maintenance Due Date Last Done Comments Alcohol/Substance Use Screening 1953 RSV Patients and Patients Aged 60 years or older (1 - 1-dose 75+ series) 01/23/2016 Influenza Vaccine (#1) 2024 , 06/25/2021, 07/24/2019, Additional history exists SDOH Screening 11/04/2024 11/05/2023 Depression Screening 11/15/2024 11/16/2023, 11/16/19 Tobacco Screening 10/04/2025 10/04/2024 Diabetes: Hemoglobin A1C [...] Procedure Name Priority Date/Time Associated Diagnosis Comments BI MAMMOGRAM SCREENING TOMOSYNTHESIS BILATERAL Routine 11/16/2024 11:15 AM EDT US RENAL BI Routine 10/25/2024 7:46 PM EDT PTH, INTACT WITHOUT CALCIUM Routine 10/05/2024 [...] hypothyroidism from Last 3 Months Results * BI Mammogram Screening Tomosynthesis Bilateral (11/16/2024 11:15 AM EDT) Anatomical Region Laterality Modality Breast Bilateral Mammography 11/16/2024 11:1 5 AM EDT Narrative 11/24/2024 4:28 PM EDT ? [facility] [place] [facility] [address] [facility] ?[place] [address] ?[phone] ? Mammography Report ? Signed ? Patient: Esparra,Linette ?MR#: [id number] ?? 7 ? : 1940 ?Acct:[id number] ? Age/Sex: 84 / F ?ADM Date: 04/24/25 ? Loc: HO.MAMMO ? Attending Dr: Marie Canchola MD ? Ordering Physician: Marie Canchola MD ?Results: 1Negative ? Date of Service: 11/16/24 ?Follow Up: 1 Year From Orig ?? inal Mammogram ? Procedure(s): MM tomosynthesis screening BI ?? Accession Number(s): [id number] ? cc: Marie Canchola MD ? EXAMINATION: ?? MM SCREENING DIGITAL BREAST TOMOSYNTHESIS, BILATERAL ? CLINICAL INFORMATION: ? Screening. Asymptomatic. ? COMPARISON: ?? Mammography: Comparison is made with available priors ? TECHNIQUE: ?? Digital breast mammography with tomosynthesis is performed in both the ?? craniocaudal and mediolateral oblique views along with computer-aided ?? detection (CAD). ? FINDINGS: ?? There are scattered areas of fibroglandular density (ACR BI-RADS breast ?? composition Category b). ? There are no significant masses, abnormal calcifications, or other ?? abnormalities. ? MM/MM tomosynthesis screening BI ?? IMPRESSION: ?? No mammographic evidence of malignancy. ? ASSESSMENT: ? BI-RADS BI-RADS 1 - Negative ? RECOMMENDATION: ?? Routine annual mammography screening. ? 1 year F/U ? This examination should not preclude the clinical evaluation of a ?? suspicious palpable abnormality. ? This patient's information was entered into a reminder system with a ?? target due date for their next mammogram. ? Electronically signed by: ??Rosa Hidalgo DO ??11/24/2024 04:26 PM EDT ?? RP ? Dictated By: ?Rosa Hidalgo DO ? Signed By: ?<Electronically signed by Rosa Hidalgo, DO in OV> ? 11/24/24 1626 ? DD/ 1115 ? TD/TT: 11/16/24 1120 ? Blue Leather Sorter: ? Procedure Note Donotuseinterpreter, Image - 11/24/2024 [facility] [address] [place], [place] [address] Mammography Report Signed Patient: Linette FierroMR#: [id number] 7 : 1940cct:[id number] Age/Sex: 84 / FADM Date: 11/16/24 Loc: HO.MAMMO Attending Dr: Marie Canchola MD Ordering Physician: Marie Cancholaesults: 1Negative Date of Service: 11/16/24Follow Up: 1 Year From Orig inal Mammogram Procedure(s): MM tomosynthesis screening BI Accession Number(s): [id number] cc: Marie Canchola MD EXAMINATION: MM SCREENING DIGITAL BREAST TOMOSYNTHESIS, BILATERAL CLINICAL INFORMATION: Screening. Asymptomatic. COMPARISON: Mammography: Comparison is made with available priors TECHNIQUE: Digital breast mammography with tomosynthesis is performed in both the craniocaudal and mediolateral oblique views along with computer-aided detection (CAD). FINDINGS: There are scattered areas of fibroglandular density (ACR BI-RADS breast composition Category b). There are no significant masses, abnormal calcifications, or other abnormalities. MM/MM tomosynthesis screening BI IMPRESSION: No mammographic evidence of malignancy. ASSESSMENT: BI-RADS BI-RADS 1 - Negative RECOMMENDATION: Routine annual mammography screening. 1 year F/U This examination should not preclude the clinical evaluation of a suspicious palpable abnormality. This patient's information was entered into a reminder system with a target due date for their next mammogram. Electronically signed by: Rosa Hidalgo DO 11/24/2024 04:26 PM EDT Dictated By: Rosa Hidalgo DO Signed By: <Electronically signed by Rosa Hidalgo DO in OV> 11/24/24 1626 DD/ 1115 TD/TT: 11/16/24 1120 Blue Leather Sorter: us Marie Dunbarmelida URIBE IMG BI PROCEDURES Final Result * US RENAL BI (10/25/2024 7:46 PM EDT) Anatomical Region Laterality Modality Abdomen Ultrasound 10/25/2024 7:46 PM EDT Narrative 10/25/2024 7:48 PM EDT ? [facility] ?[address] ?[place] [address] ? Ultrasound Report ? Signed ? Patient: Esparra,Linette ?MR#: [id number] ?? 7 ? : 1940 ?Acct:[id number] ? Age/Sex: 84 / F ?ADM Date: 10/25/24 ? Loc: HO.US ? Attending Dr: Jae Avina MD ? Ordering Physician: Jae Avina MD ?? Date of Service: 10/25/24 ?? Procedure(s): US renal BI ?? Accession Number(s): [id number] ? cc: Jae Avina MD; Marie Canchola MD ? CLINICAL HISTORY: I10 - Essential (primary) hypertension ? US kidneys and bladder ? Comparison: None ? Findings: ? Right kidney 9.3 cm length. ?? Mild right hydronephrosis noted. ?? No significant focal abnormality. ?? Multiple subcentimeter cysts. ? Left kidney 8.7 cm length. ?? No significant focal abnormality. ?? Multiple subcentimeter cysts. ?? Largest cyst measures 1.2 cm. ? Increased bilateral renal echogenicity. ? The urinary bladder is unremarkable. ?? Bilateral ureteral jets visualized. ? Impression: ? Increased renal echogenicity consistent with chronic disease ? Mild right hydronephrosis ? This document has been electronically signed by: Timo Larsen MD on ?? 10/25/2024 19:46:54 ? Dictated By: ?Timo Larsen MD ? Signed By: ?<Electronically signed by Timo Larsen MD in OV> ? 10/25/248 ? DD/ 45 ? TD/TT: 10/25/241945 ? Blue Leather Sorter: ? Procedure Note Gregorio Martinez - 10/25/[address] [address] Ultrasound Report Signed Patient: Linette FierroMR#: [id number] 7 : 1Acct:[id number] Age/Sex: 84 / FADM Date: 10/25/24 Loc: HO.US Attending Dr: Jae Avina MD Ordering Physician: Jae Avina MD Date of Service: 10/25/24 Procedure(s): US renal BI Accession Number(s): [id number] cc: Jae Avina MD; Marie Canchola MD CLINICAL HISTORY: I10 - Essential (primary) hypertension US kidneys and bladder Comparison: None Findings: Right kidney 9.3 cm length. Mild right hydronephrosis noted. No significant focal abnormality. Multiple subcentimeter cysts. Left kidney 8.7 cm length. No significant focal abnormality. Multiple subcentimeter cysts. Largest cyst measures 1.2 cm. Increased bilateral renal echogenicity. The urinary bladder is unremarkable. Bilateral ureteral jets visualized. Impression: Increased renal echogenicity consistent with chronic disease Mild right hydronephrosis This document has been electronically signed by: Timo Larsen MD on 10/25/2024 19:46:54 Dictated By: Timo Larsen MD Signed By: <Electronically signed by Timo Larsen MD in OV> 10/25/241947 DD/ 45 TD/TT: 10/25/241945 Blue Leather Sorter: [facility] External Provider IMG US PROCEDURES Final Result * TSH with Reflex to Free T4 (10/05/2024 10:38 AM EDT) TSH reflex Free T4 1.59 0.32 - 4.0 uIU/mL [facility] Blood 10/05/2024 10:3 8 AM EDT 10/05/2024 10:38 AM EDT Result [facility] Marie Canchola MD LAB BLOOD ORDERABLES Final Resul t [facility] [address] [place] [address] [phone] * Lipid Panel with Reflex to Direct LDL (10/05/2024 10:38 AM EDT) Triglycerides 143 <150 mg/dL [facility] Comment:Desirable Triglyceri de: less than 150 mg/dLBorderline High Triglyceride 150-199 mg/dLHigh Triglyceride: 200-499 mg/dLVery High Triglyceride: greater than or equal to 5OO mg/dL Cholesterol 181 <200 mg/dL [facility] Comment:Desirable Cholestero l: less than 200 mg/dLBorderline High Cholesterol: 200-239 mg/dLHigh Cholesterol: greater than 239 mg/dL LDL Cholesterol Calculated 93 <100 mg/dL [facility] Comment:Desirable LDL: less than 100 mg/dLNear Optimal/Above Optimal LDL: 110- 129 mg/dLBorderline High LDL: 130-159 mg/dLHigh LDL: 160-189 mg/dLVery High LDL: greater than or equal to 190 mg/dL HDL Cholesterol 60 >40 mg/dL [facility] Comment:Desirable HDL: great er than 40 mg/dL Note: This HDL assay may give artificially low results in patients with liver disease. Blood 10/05/2024 10:3 8 AM EDT 10/05/2024 10:38 AM EDT us Marie Canchola MD LAB BLOOD ORDERABLES Final Resul t [facility] [address] [place] [address] [phone] * (ABNORMAL) CBC auto differential (10/05/2024 10:38 AM EDT) White Blood Count 10.6 4.8 - 10.8 X10*3/uL [facility] Red Blood Count 4.58 4.20 - 5.50 X10*6/uL [facility] Hemoglobin 12.6 12.0 - 16.0 g/dl [facility] Hematocrit 39.9 37.0 - 47.0 % [facility] Mean Corpuscular Volume 87.1 80.0 - 98.0 fL [facility] Mean Corpuscular Hemoglobin 27.5 27.0 - 33.0 pg [facility] Mean Corpuscular HGB Conc 31.6 31.0 - 35.0 g/dl [facility] Red Cell Distribution Width 13.3 11.0 - 16.0 % [facility] Platelet Count 302 160 - 400 X10*3/uL [facility] Mean Platelet Volume 10.5 9.4 - 12.3 fL [facility] Neutrophils Percent Auto 64.5 45 - 73 % [facility] Imm Gran Pct Auto 0.7(H) 0.0 - 0.4 % [facility] Lymphocytes Percent Auto 25.9 20 - 40 % [facility] Monocytes Percent Auto 5.3 2 - 11 % [facility] Eosinophils Percent Auto 3.1 0 - 4 % [facility] Basophils Percent Auto 0.5 0 - 2 % [facility] NRBC Pct Auto 0.0 0.0 - 0.2 /100WBC [facility] Neutrophils Absolute Auto 6.8 2.0 - 8.3 x10*3/uL [facility] Imm Gran Abs Auto 0.07(H) 0.00 - 0.03 X10*3/uL [facility] Lymphocytes Absolute Auto 2.7 1.2 - 4.9 X10*3/uL [facility] Monocytes Absolute Auto 0.6 0.1 - 1.2 X10*3/uL [facility] Eosinophils Absolute Auto 0.3 0.0 - 0.4 X10*3/uL [facility] Basophils Absolute Auto 0.1 0.0 - 0.2 X10*3/uL [facility] NRBC Abs Auto 0.000 0.0 - 0.012 X10*3/uL [facility] 10/05/2024 10:3 8 AM EDT 10/05/2024 10:38 AM EDT us Generic External Data Provider LAB BLOOD ORDERAB LES Final Result Performing Organization Address [facility]/ZIP Co de Phone Number [facility] [address] [place] [phone] * (ABNORMAL) PTH, Intact Without Calcium (10/05/2024 10:38 AM EDT) Parathyroid Hormone, Intact 106.8(H) 8.7 - 77.1 pg/mL [facility] 10/05/2024 10:3 8 AM EDT 10/05/2024 10:38 AM EDT us Generic External Data Provider LAB BLOOD ORDERAB LES Final Result Performing Organization Address [facility] Co de Phone Number [facility] [address] [place] [phone] * Hemoglobin A1c (10/05/2024 10:38 AM EDT) Hemoglobin A1c 5.8 <6.0 % [facility] Comment:Hemoglobin A1C Refer ence Range Adults: 4.8 - 6.0 % Non diabetic: < 6.0 % Goal: < 7.0 %Additional Action Suggested: > 8.0 %Note: Hemoglobin A1c results are invalid for patients with abnormal amounts of HbF. Blood transfusions may impact the HbA1c concentration in the patient sample. Estimated Average Glucose 120 mg/dL [facility] Comment:eAG = Estimated ave rage glucose which is %A1C expressed asaverage glucose, using the formula of the Z6T-DgvuqorDbaeuvt Glucose study (ADAG), Diabetes Care, Vol.31,#8,Feb. 2007 Blood Venous blood specimen / Unknown 10/05/2024 10:38 AM EDT 10/05/2024 10:38 AM EDT us Marie Canchola MD LAB BLOOD ORDERABLES Final Resul t Performing Organization Address [facility] Co de Phone Number [facility] [address] [place] [phone] * (ABNORMAL) Basic Metabolic Panel (10/05/2024 10:38 AM EDT) Sodium 141 135 - 145 mmol/L [facility] Potassium 4.5 3.3 - 5.1 mmol/L [facility] Chloride 106 96 - 108 mmol/L [facility] Carbon Dioxide 27 22 - 29 mmol/L [facility] Anion Gap 13 12 - 20 [facility] Urea Nitrogen (BUN) 41(H) 9 - 16 mg/dL [facility] Creatinine, Serum 1.46(H) 0.5 - 1.4 mg/dL [facility] Estimated Glomerular Filt Rate 34 [facility] Comment:Chronic Kidney Disea se: Estimated GFR < 60 mL/min/1.17g7Bmahuv Kidney Disease: Estimated GFR < 15 mL/min/1.73m2 Glucose 98 60 - 115 mg/dL [facility] Calcium 9.3 8.4 - 10.2 mg/dL [facility] 10/05/2024 10:3 8 AM EDT 10/05/2024 10:38 AM EDT us Generic External Data Provider LAB BLOOD ORDERAB LES Final Result Performing Organization Address City/State/[facility] Co de Phone Number [facility] [address] [place] [address] [phone] from Last 3 Months Insurance [facility] [employer] (HMO D-SNP) ARNAV CHARLES [id number] Care Teams Dishwasher Preparer Relationship Specialty Start Date End Date Marie Canchola MD [address] [place] [phone] PCP - General Family Medicine 07/26/18 Khadar Menezes, SandraD [address] [place] [phone] Pharmacist Internal Medicine 03/31/24
--- OUTSIDE RECORDS SUMMARY | 2024-12-05 12:47 | XMS_ITS | Clinical Summary ---
Author Organization [facility] Address [address] [place] [phone] Phone Care Team Providers Care Car Runner Name Role Phone Unavailable Primary Care Provider [...] lesion when pt went to ED in [place] in 2019, Question of multiple myeloma -Seen [...] (03/12/2023): Last Assessment & Plan: -Followed by leather shaver for CKDIII, Hx hyperparathyroidism, hx kidney stone. [...] patient's age to complete this topic Insurance [facility] ([id number]) [facility] MCR ([id number])
== END 2024-12-05 11:38 | disposition home or self-care (01) ==
LOC: HO.HKA 11:19
PROVIDERS: PCP Family Medicine; Visit Provider Internal Medicine Hypertension Specialist
DX: N18.30 Chronic kidney disease, stage 3 unspecified (principal); E21.3 Hyperparathyroidism, unspecified; Z87.442 Personal history of urinary calculi
CPT/HCPCS: 99214

== ENCOUNTER → 2024-12-05 11:17 | Outpatient (BNVA) | payer OTHER, SELFPAY | PROVIDERS: PCP Family Medicine; Visit Provider Internal Medicine Hypertension Specialist | DX: N18.30 Chronic kidney disease, stage 3 unspecified (principal); E21.3 Hyperparathyroidism, unspecified; Z87.442 Personal history of urinary calculi | CPT/HCPCS: 99212 ==

== ENCOUNTER 2024-12-29 13:10 | Outpatient (REF) | payer OTHER, SELFPAY ==
--- OUTSIDE RECORDS SUMMARY | 2024-12-29 13:14 | XMS_ITS | Encounter Summary ---
Author Organization [employer] Address [address] [facility] [address] [place] [address] Care Team Providers Care Nut Grader Name Role Phone Marie Canchola MD Primary Care Provider [phone] Khadar Menezes PharmD Unavailable [phone] Reason for Visit * Reason Onset Date Comments Appointment Request 12/05/2024 Encounter Details Date Type Department Care Team ([facility] st Contact Info) Description 12/05/2024 Telephone [facility] [address] [place], [place] [phone] Marie Canchola MD [address] [place], [place] [phone] Appointment Request Social History Tobacco Use Types [...] Care Team (Late st Contact Info) Description 01/25/2025 10:30 AM EDT Medication Management [facility] [address] [place] [address] Khadar Menezes PharmD [address] [place] [address] documented as of this encounter Goals Goal Patient Goal Type Associated Problems Recent Progress Patient-Stated? Author Blood Pressure < 140/90 Blood Pressure 170/88( 025 11:45 AM EDT) No Khadar Menezes, PharmD documented as of this encounter Visit Diagnoses Not on filedocumented in this encounter Additional Health Concerns Assessment Noted Time PHQ-9 Depression Total Score: 0 11/16/19 24 1:28 PM EDT documented as of this encounter Care Teams Nut Grader Relationship Specialty Start Date End Date Marie Canchola MD [address] [place] [address] PCP - General Family Medicine 07/26/18 Khadar Menezes, SandraD [address] [place] [phone] Pharmacist Internal Medicine 03/31/24 documented as of this encounter
[2024-12-29 14:12] LABS: Alanine Aminotransferase 16 U/L (0-31); Albumin Level 4.2 g/dL (3.5-5.0); Alkaline Phosphatase 94 U/L (39-117); Anion Gap 11 (12-20); Aspartate Amino Transferase 19 U/L (5-31); Bilirubin Total 0.4 mg/dL (0.0-1.0); Blood Urea Nitrogen 28 mg/dL (9-16); Calcium 10.1 mg/dL (8.4-10.2); Carbon Dioxide 29 mmol/L (22-29); Chloride 106 mmol/L (96-108); Estimated Glomerular Filt Rate 37; Glucose Random 70 mg/dL (60-115); Potassium 4.5 mmol/L (3.3-5.1); Sodium 141 mmol/L (135-145); Total Protein 7.5 g/dL (6.5-8.0)
[2024-12-29 14:17] LABS: Cholesterol 172 mg/dL (<200); HDL Cholesterol 68 mg/dL (>40); LDL Cholesterol Calculated 84 mg/dL (<100); Triglycerides 102 mg/dL (<150)
[2024-12-29 14:39] LABS: TSH reflex Free T4 1.96 uIU/mL (0.32-4.0)
[2024-12-29 15:13] LABS: Reflex LDLD? No
== END 2024-12-29 13:11 | disposition home or self-care (01) ==
LOC: HO.LAB 13:10
PROVIDERS: PCP Family Medicine; Visit Provider Internal Medicine Hypertension Specialist
DX: I10 Essential (primary) hypertension (principal); N18.32 Chronic kidney disease, stage 3b; E78.00 Pure hypercholesterolemia, unspecified; E03.9 Hypothyroidism, unspecified
CPT/HCPCS: 36415; 80053; 80061; 84443

== ENCOUNTER 2025-01-02 11:58 | Outpatient (AMB) | payer OTHER, SELFPAY ==
--- NOTE | 2025-01-02 12:01 | HO.NEPHOV_ITS ---
Vital Signs 01/02/25 12:02 Height 4 ft 8 in Weight 180 lb BMI 40.4 BP 118/54 L Blood Pressure Location Lt brachial Position Sitting Pulse 93 Pulse Source Pulse Oximeter Pulse Oximetry (%) 96 Oxygen Delivery Method Room Air Intake Visit Reasons: FU/ LVM Landfill Gas Technician Required: Yes Landfill Gas Technician Name: [id number] earnest Accompanied by: Son Allergies ciprofloxacin [From Cipro] Allergy (Severe, Verified 01/02/25 12:05) RASH Iodinated Contrast Media [IV Dye, Iodine Containing] Allergy (Intermediate, Verified 01/02/25 12:05) RASH, ITCHY penicillin V Allergy (Mild, Verified 01/02/25 12:05) Unknown Medication List - Last Reconciled 01/02/25 by Jae Avina MD albuterol sulfate 90 mcg/actuation inhalation amlodipine 5 mg PO DAILY amlodipine 5 mg PO DAILY aspirin 81 mg PO DAILY atorvastatin 10 mg PO DAILY budesonide-formoterol 80-4.5 mcg/actuation (Symbicort) inhalation PRN cetirizine 5 mg PO BEDTIME cholecalciferol (vitamin D3) (Vitamin D3) 25 mcg PO DAILY levothyroxine 50 mcg PO DAILY losartan 100 mg PO DAILY metoprolol succinate ER 50 mg PO DAILY HPI Comments Details: Elderly woman with a history of longstanding hypertension nephrolithiasis. She is here for regular follow-up. Today she was accompanied by family members. No new complaints. No urinary symptoms. She is compliant with all her medications. Interpretor service was used 12/05/24 84-year-old female presenting with elevated blood pressure. She has difficulty recalling the last instance of seeing her primary care provider, planning to do so on December 28. Her routine blood pressure medications have been reportedly taken, yet her blood pressure remains high. It is noted that she had disrupted sleep, potentially contributing to this elevation. Additionally, the patient reports efforts towards managing dietary salt intake to control blood pressure. 01/02/25 [facility] Medical History (Updated 10/21/23 @ 12:04 by Jae Avina MD) History of kidney stones Osteoporosis Bilateral cataracts Asthma Chronic kidney disease, stage 3 Hyperparathyroidism Hypercholesterolemia HTN (hypertension) History of CVA (cerebrovascular accident) Family History Other HTN (hypertension) History of kidney stones Social History Alcohol intake: never Physical Exam Vital Signs: Last Vital Signs Pulse 93 01/02/25 12:02 BP 118/54 L 01/02/25 12:02 Pulse Ox 96 01/02/25 12:02 Oxygen Delivery Method Room Air 01/02/25 12:02 BMI result Body Mass Index 40.4 Comfortable Neck supple no JVD. Lungs entry equal no rales. Heart S1-S2 heard no gallop or rub. Abdomen soft nontender. Neuro alert awake oriented. No asterixis. Extremities no edema. Results Reviewed Nephrology Results: Hgb 12.6 g/dl (12.0-16.0) 10/05/24 WBC 10.6 X10*3/uL (4.8-10.8) 10/05/24 Plt Count 302 X10*3/uL (160-400) 10/05/24 Sodium 141 mmol/L (135-145) 12/29/24 Potassium 4.5 mmol/L (3.3-5.1) 12/29/24 Chloride 106 mmol/L (96-108) 12/29/24 Carbon Dioxide 29 mmol/L (22-29) 12/29/24 BUN 28 mg/dL (9-16) H 12/29/24 Creatinine 1.36 mg/dL (0.5-1.4) 12/29/24 Calcium 10.1 mg/dL (8.4-10.2) 12/29/24 PTH Intact 81.2 pg/mL (8.7-77.1) H 10/17/24 Renal US 10/25/24 Assessment & Plan Assessment & Plan (1) Chronic kidney disease, stage 3: Code(s): N18.30 - Chronic kidney disease, stage 3 unspecified Category: Medical (2) Hyperparathyroidism: Code(s): E21.3 - Hyperparathyroidism, unspecified Category: Medical (3) History of kidney stones: Comment: [place] in [place] Code(s): Z87.442 - Personal history of urinary calculi Category: Medical Plan Elderly woman with a history of stage III CKD in a setting of longstanding hypertension nephrolithiasis. She has had hyperparathyroidism with elevated serum calcium in the past. Repeat Calcium is normal She should stay on low-sodium diet. Increase p.o. fluid. Blood pressure be maintained less than 130/80 mm Hg. Creatinine is back to baseline BP is better controlled after adding AMlodipine 2.5 mg QD Coding Level of Care Code Est Pt Level 4 (50564) Diagnoses Chronic kidney disease, stage 3 N18.30 Hyperparathyroidism E21.3 History of kidney stones Z87.442
[2025-01-02 12:02] VITALS: BP 118/54; PULSE 93; O2SAT 96; BMI 40.4
--- OUTSIDE RECORDS SUMMARY | 2025-01-02 14:16 | XMS_ITS | Encounter Summary ---
Author Organization [employer] Address [address] [facility] 7t [place] [address] Care Team Providers Care Gut Sorter Name Role Phone Marie Canchola MD Primary Care Provider [phone] Khadar Menezes PharmD Unavailable [phone] Reason for Visit * Reason Onset Date Comments Appointment Request 12/05/2024 Encounter Details Date Type Department Care Team ([facility] st Contact Info) Description 12/05/2024 Telephone [facility] MEDICINE [address] [place], [place] [phone] Marie Canchola MD [address] [place], [place] [phone] Appointment Request Social History Tobacco Use Types [...] Description 01/25/2025 10:30 AM EDT Medication Management [facility] MEDICINE [address] [place] [address] Khadar Menezes PharmD [address] [place] [address] documented as of this encounter Goals Goal [...] documented as of this encounter Care Teams Gut Sorter Relationship Specialty Start Date End Date Marie Canchola MD [address] [place] [address] PCP - General Family Medicine 07/26/18 Khadar Menezes, SandraD [address] [place] [phone] Pharmacist Internal Medicine 03/31/24 documented as of this encounter
== END 2025-01-02 12:17 | disposition home or self-care (01) ==
LOC: HO.HKA 11:59
PROVIDERS: PCP Family Medicine; Visit Provider Internal Medicine Hypertension Specialist
DX: N18.30 Chronic kidney disease, stage 3 unspecified (principal); E21.3 Hyperparathyroidism, unspecified; Z87.442 Personal history of urinary calculi
CPT/HCPCS: 99214

== ENCOUNTER → 2025-01-02 11:58 | Outpatient (BNVA) | payer OTHER, SELFPAY | PROVIDERS: PCP Family Medicine; Visit Provider Internal Medicine Hypertension Specialist | DX: I10 Essential (primary) hypertension (principal); N18.30 Chronic kidney disease, stage 3 unspecified; E21.3 Hyperparathyroidism, unspecified; Z87.442 Personal history of urinary calculi | CPT/HCPCS: 99212 ==

== ENCOUNTER 2025-04-27 13:13 | Outpatient (REF) | payer OTHER, SELFPAY ==
--- OUTSIDE RECORDS SUMMARY | 2025-04-27 13:41 | XMS_ITS | Encounter Summary ---
Author Organization [employer] Address [address] [facility] 7t [place] [address] Care Team Providers Care Custom Clothier Name Role Phone Marie Canchola MD Primary Care Provider [phone] Khadar Menezes PharmD Unavailable [phone] Encounter Details Date Type Department Care Team ([facility] st Contact Info) Description 12/07/2023 Orders Only [facility] MEDICINE [address] [place], [place] [phone] Marie Canchola MD [address] [place], [place] [phone] Social History Tobacco Use Types Packs/Day Years [...] Care Team (Late st Contact Info) Description 05/17/2025 10:30 AM EDT Medication Management [facility] MEDICINE [address] [place] [phone] Khadar Menezes, Violet [address] [place] [address] 06/11/2025 1:15 PM EST Office Visit [facility] MEDICINE [address] [place] [phone] Marie Canchola MD [address] [place] [address] documented as of this encounter Visit Diagnoses Not on filedocumented in this encounter Additional Health Concerns Assessment Noted Time PHQ-9 Depression Total Score: 0 11/16/19 24 1:28 PM EDT documented as of this encounter Care Teams Custom Clothier Relationship Specialty Start Date End Date Marie Canchola MD [address] [place] [phone] PCP - General Family Medicine 07/26/18 Khadar Menezes, PharmD [address] [place] [address] [phone] Pharmacist Internal Medicine 03/31/24 documented as of this encounter
--- OUTSIDE RECORDS SUMMARY | 2025-04-27 13:41 | XMS_ITS | Encounter Summary ---
Author Organization [employer] Address [address] [facility] 7t [place] [address] Care Team Providers Care Company Driver Name Role Phone Marie Canchola MD Primary Care Provider Khadar Menezse PharmD Unavailable [phone] Reason for Referral * Consultation (Routine) - Authorized Specialty Diagnoses / Procedures Referred By Contac t Referred To Contact Pharmacy Diagnoses Essential hypertension Marie Canchola MD [address] [place] [address] Phone: tel: fax: Referral ID Status Reason Start Date Expiration Date Visits Requested Visits Authorized [id number] Authorized Consult and Treat 12/07/2024 12/07/2025 6 6 Encounter Details Date Type Department Care Team ([facility] st Contact Info) Description 12/07/2024 Orders Only [facility] MEDICINE [address] [place] [address] [phone] Marie Canchola MD [address] [place], [place] [phone] Essential hypertension (Primary Dx) Social History Tobacco Use Types Packs/Day Years [...] Description 05/17/2025 10:30 AM EDT Medication Management [facility] MEDICINE [address] [place] [phone] Khadar Menezes, SandraD [address] [place] [phone] 06/11/2025 1:15 PM EST Office Visit [facility] MEDICINE [address] [place] [phone] Marie Canchola MD [address] [place] [phone] Scheduled Referrals Name Type Priority Associated Diagnoses Orde r Schedule Referral to Pharmacy CDTM Outpatient Referral Routine Essential hypertension Ordered: 12/07/2024 documented as of this encounter Goals Goal Patient Goal Type Associated Problems Recent Progress Patient-Stated? Author Blood Pressure < 140/90 Blood Pressure 170/88( 025 11:45 AM EDT) No Khadar Menezes, PharmD documented as of this encounter Visit Diagnoses Diagnosis Essential hypertension- Primary Unspecified essential hypertension documented in this encounter Additional Health Concerns Assessment Noted Time PHQ-9 Depression Total Score: 0 11/16/19 24 1:28 PM EDT documented as of this encounter Care Teams Company Driver Relationship Specialty Start Date End Date Marie Canchola MD [address] [place] [address] PCP - General Family Medicine 07/26/18 Khadar Menezes, PharmD [address] [place] [address] Pharmacist Internal Medicine 03/31/24 documented as of this encounter
--- OUTSIDE RECORDS SUMMARY | 2025-04-27 13:41 | XMS_ITS | Encounter Summary ---
Author Organization [employer] Address [address] [facility] 7t [place] [address] Care Team Providers Care Surgeon Chief Name Role Phone Marie Canchola MD Primary Care Provider [phone] Khadar Menezes PharmD Unavailable [phone] Reason for Visit * Reason Comments Med Refill Encounter Details Date Type Department Care Team ([facility] st Contact Info) Description 02/19/2025 Refill [facility] MEDICINE [address] [place], [place] [phone] Marie Canchola MD [address] [place], [place] [phone] Dyslipidemia Social History Tobacco Use Types Packs/Day Years Used Date Smoking Tobacco: Never Passive Smoke Exposure: Never Smokeless Tobacco: Never Depression Answer Date Recorded Patient Health Questionnaire-9 Score 0 12/28/2024 Patient Health Questionnaire-9 Score 0 12/28/2024 Last PHQ-9: Questionnaire Data Not on file 0 12/28/2024 Housing Stability Answer Date Recorded What is [...] Date Recorded Patient Health Questionnaire-2 Score 0 12/28/2024 Comments Unknown Sex and Gender Information Value [...] Description 05/17/2025 10:30 AM EDT Medication Management [facility] MEDICINE [address] [place] [phone] Khadar Menezes PharmD [address] [place] [phone] 06/11/2025 1:15 PM EST Office Visit [address] [phone] Marie Canchola MD [address] [place] [phone] documented as of this encounter Goals Goal Patient Goal Type Associated Problems Recent Progress Patient-Stated? Author Blood Pressure < 140/90 Blood Pressure 170/88( 025 11:45 AM EDT) No Khadar Menezes PharmD documented as of this encounter Visit Diagnoses Diagnosis Dyslipidemia Other and unspecified hyperlipidemia documented in this encounter Additional Health Concerns Assessment Noted Time PHQ-9 Depression Total Score: 0 12/29/19 25 11:43 AM EDT documented as of this encounter Care Teams Surgeon Chief Relationship Specialty Start Date End Date Marie Canchola MD [address] [place] [phone] PCP - General Family Medicine 07/26/18 Khadar Menezes PharmD [address] [place] [address], [place] [address] Pharmacist Internal Medicine 03/31/24 documented as of this encounter
--- OUTSIDE RECORDS SUMMARY | 2025-04-27 13:41 | XMS_ITS | Encounter Summary ---
Author Organization [employer] Address [address] [facility] 7t [place] [address] Care Team Providers Care Paint Crew Supervisor Name Role Phone Marie Canchola MD Primary Care Provider [phone] hKadar Menezes PharmD Unavailable [phone] Reason for Visit * Reason Onset Date Comments Appointment Request 12/05/2024 Encounter Details Date Type Department Care Team ([facility] st Contact Info) Description 12/05/2024 Telephone [facility] MEDICINE [address] [place], [place] [phone] Marie Canchola MD [address] [place], [place] [phone] Appointment Request Social History Tobacco Use Types [...] 10:30 AM EDT Medication Management [facility] MEDICINE [address] [place] [phone] Khadar Menezes, PharmD [address] [place] [address] 06/11/2025 1:15 PM EST Office Visit [facility] MEDICINE [address] [place] [phone] Marie Canchola MD [address] [place] [address] documented as of this encounter Goals Goal [...] documented as of this encounter Care Teams Paint Crew Supervisor Relationship Specialty Start Date End Date Marie Canchola MD [address] [place] [address] PCP - General Family Medicine 07/26/18 Khadar Menezes, Violet [address] [place] [address] Pharmacist Internal Medicine 03/31/24 documented as of this encounter
--- OUTSIDE RECORDS SUMMARY | 2025-04-27 13:41 | XMS_ITS | Clinical Summary ---
Author Organization [employer] Address [address] [facility] [address] [place] [address] Care Team Providers Care Fishing Captain Name Role Phone Marie Canchola MD Primary Care Provider Khadar Menezes PharmD Unavailable [phone] Allergies Active Allergy Reactions Criticality Noted Date Comments Beef Allergy 07/22/2022 Nsaids 07/22/2022 Penicillins 07/22/2022 Quinolones 07/22/2022 Medications Naphazoline-Glycer in (Clear Eyes Redness Relief) 0.012-0.25 [...] 8 puffs 18 g 1 4 Active COVID-19 At-Home Test kit 1 [...] not swallow. 1 each 11 5 Active losartan (Cozaar) 100 MG tabletIndications: Essential hypertension Take 1 tablet (100 mg) by mouth Once per day. 90 tablet 3 5 Active ascorbic acid (Vitamin C) 500 MG tablet Take 500 mg by mouth Once per day. Active metoprolol succinate XL (Toprol-XL) 50 MG 24 hr tablet Take 1 tablet (50 mg) by mouth Once per day. Do not crush or chew. 90 tablet 3 5 Active amLODIPine (Norvasc) 5 MG tabletIndications: Essential hypertension Take 1 tablet (5 mg) by mouth Once per day. 90 tablet 3 5 Active LORazepam (Ativan) 0.5 MG tabletIndications: Aerophobia Take 1 tablet by mouth once 30-60 minutes before flight. 2 tablet 5 Active cholecalciferol (D3-1000) 25 MCG (1000 UT) tablet TAKE 1 TABLET BY MOUTH EVERY DAY 90 tablet 3 5 Active aspirin (Aspirin Low Dose) 81 MG EC tablet TAKE 1 TABLET BY MOUTH EVERY DAY 90 tablet 3 5 Active Active Problems Problem Noted Date Diagnosed Date Aerophobia 12/28/2024 Assessment & Plan (12/28/2024 12:53 PM EDT): - lorazepam 0.5 mg before flight. Allergic rhinitis 07/26/2022 Assessment & Plan (09/29/2024 [...] lesion when pt went to ED in [place] in 2019, Question of multiple myeloma -Seen [...] lesion when pt went to ED in [place] in 2019, Question of multiple myeloma -Seen [...] patients with CKD. Consider alternative -seen by [facility] Endocrinology provider in November 2023. Recommended [...] patients with CKD. Consider alternative -seen by [facility] Endocrinology provider in November 2023. Recommended [...] Jun 2021 Hyperparathyroidism 11/29/2020 Assessment & Plan (12/28/2024 12:53 PM EDT): -s/p parathyroidectomy -Hx kidney stone -optimize bone health -continue adequate fluid intake 2L/d Assessment & Plan (07/03/2024 12:53 PM EST): [...] 08/31/2016 Acquired hypothyroidism 06/10/2015 Assessment & Plan (12/28/2024 12:46 PM EDT): -Last thyroid function test: 10/05/24 TSH 1.59 -Continue levothyroxine 50 mcg daily. Assessment & Plan (09/29/2024 12:51 AM EST): [...] daily. Essential hypertension 06/10/2015 Assessment & Plan (12/28/2024 12:45 PM EDT): -Goal BP < 130/80 per ACC/AHA guideline -Hx white-coat hypertension -Co-managed with chief of production and our pharamcist -Elevated BP today, patient reports fluctuating BP -Continue working on lifestyle modifications. -Continue metoprolol succinate 50 mg daily. -Continue losartan 100 mg daily -Increase amlodipine from 2.5 to 5 mg daily. Hold if SBP < 100 or DBP < 40. Take 2.5 mg if SBP < 110. -Continue checking home BP Assessment & Plan (09/29/2024 12:50 AM EST): -Goal BP < 130/80 per ACC/AHA guideline -Hx white-coat hypertension -Co-managed with chief of production and our pharamcist -Elevated BP today, patient reports fluctuating BP -Continue working on lifestyle modifications. -Continue metoprolol succinate 50 mg daily. -Continue losartan 100 mg daily -Continue checking home BP -She will contact us if her home BP is elevated persistently Assessment & Plan (07/03/2024 12:52 PM EST): -Goal BP < 130/80 per ACC/AHA guideline -Hx white-coat hypertension -Co-managed with chief of production and our pharamcist -Elevated BP today, patient [...] lab review. Obesity 05/26/2012 Assessment & Plan (12/28/2024 12:45 PM EDT): - continue working on lifestyle modifications Assessment & Plan (03/13/2024 4:30 PM EDT): - continue working on lifestyle modifications Stage 3 chronic kidney disease (CMS/HCC) 012 Assessment & Plan (12/28/2024 12:47 PM EDT): -Followed by chief of production for CKDIII, Hx hyperparathyroidism, hx kidney stone. Last seen in October 2024 -Continue current meds. -Avoid nephrotoxic drugs Assessment & Plan (09/29/2024 12:51 AM EST): -Followed by chief of production for CKDIII, Hx hyperparathyroidism, hx kidney stone. Last seen in May 2024 -Continue current meds. -Avoid nephrotoxic drugs Assessment & Plan (07/03/2024 12:53 PM EST): -Followed by chief of production for CKDIII, Hx hyperparathyroidism, hx kidney stone. Last seen in May 2024 -Continue current meds. -Avoid nephrotoxic drugs Assessment & Plan (03/13/2024 4:26 PM EDT): -Followed by chief of production for CKDIII, Hx hyperparathyroidism, hx kidney stone. Last seen in January 2024, q6m visit. -Continue current meds. -Avoid nephrotoxic drugs Assessment & Plan (11/16/2023 3:00 PM EDT): -Followed by chief of production for CKDIII, Hx hyperparathyroidism, hx kidney stone. Last seen in Feb 2023 -Continue current meds. -Avoid nephrotoxic drugs Assessment & Plan (08/22/2023 3:23 PM EST): -Followed by chief of production for CKDIII, Hx hyperparathyroidism, hx kidney stone. Last seen in Feb 2023 -Continue current meds. -Avoid nephrotoxic drugs Assessment & Plan (04/26/2023 5:03 AM EDT): -Followed by chief of production for CKDIII, Hx hyperparathyroidism, hx kidney stone. Last seen on 03/15/23. -Lab 06/30/21, K 4.4; BUN 29; SCr 1.29; eGFR 40 -Continue current meds. -Avoid nephrotoxic drugs Assessment & Plan (11/03/2022 1:35 PM EDT): -Followed by chief of production for CKDIII, Hx hyperparathyroidism, hx kidney stone. -Lab 06/30/21, K 4.4; BUN 29; SCr 1.29; eGFR 40 -Continue current meds. -Avoid nephrotoxic drugs Assessment & Plan (07/26/2022 10:36 AM EST): -Followed by chief of production for CKDIII, Hx hyperparathyroidism, hx kidney stone. -Lab 06/30/21, K 4.4; BUN 29; SCr 1.29; eGFR 40 -Continue current meds. -Avoid nephrotoxic drugs Impaired fasting glucose 03/16/2012 Assessment & Plan (09/29/2024 12:52 AM EST): - Ordered Hemoglobin A1c 09/28/24 Asthma 02/10/2012 Assessment & Plan (12/28/2024 12:51 PM EDT): - Moderate exacerbation in Jul 2023. Treated with prednisone and azithromycin. - SMART with budesonide / formoterol 2 puffs bid, with [...] has been doing well. Assessment & Plan (10/04/2024 3:41 PM EDT): [...] doing well. Hypercholesterolemia 02/10/2012 Assessment & Plan (12/28/2024 12:43 PM EDT): -Current medication: atorvastatin 10 mg qhs -Most recent lab: 10/05/24 -She is on atorvastatin due to her CKD. Consider increasing to 20 mg at bedtime (once her BP control improves). -Continue working on lifestyle modificaitons Assessment & Plan (09/29/2024 12:53 AM EST): [...] Encounters Date Type Department Care Team Description 02/19/2025 Refill [facility] [address] [place] [address] Marie Canchola MD Dyslipidemia 02/16/2025 Refill [facility] [address] [place] [address] Marie Canchola MD from Last 3 Months Immunizations Immunization Administration Dates Next Due Influenza injectable quadriv [...] the past 12 months, has t he [employer], gas, oil or water company threatened to [...] Sign Reading Time Taken Comments Blood Pressure 170/88 12/28/2024 11:45 AM EDT Pulse 62 12/28/2024 11:44 AM EDT Temperature 36.7 C (98.1 F) 12/28/2024 11:44 AM EDT Respiratory Rate 14 12/28/2024 11:44 AM EDT Oxygen Saturation 97% 09/28/2024 10:58 AM EST Inhaled Oxygen Concentration - - Weight 82 kg (180 lb 12.8 oz) 12/28/2024 11:44 A M EDT Height 142.2 cm (4' 8 ) 12/28/2024 11:44 AM EDT Body Mass Index 40.53 12/28/2024 11:44 AM EDT Plan of Treatment Upcoming Encounters Date Type Department Care Team (Late st Contact Info) Description 05/17/2025 10:30 AM EDT Medication Management [facility] [address] [place] [address] Khadar Menezes, PharmD [address] [place] [address] 06/11/2025 1:15 PM EST Office Visit [facility] [address] [place] [address] Marie Canchola MD [address] [place] [address] Health Maintenance Due Date Last Done Comments RSV Patients and Patients Aged 60 years or older (1 - 1-dose 75+ series) 01/23/2016 SDOH Screening 11/04/2024 11/05/2023 Influenza Vaccine (#1) 2025 , 06/25/2021, 07/24/2019, Additional history exists COVID-19 Vaccine ( season) 2025 09/28/2024, 01/07/2022, 06/25/2021, Additional history exists Diabetes: Hemoglobin A1C 10/05/2025 025, 11/17/2023, 11/05/2022, Additional history exists Alcohol/Substance Use Screening 12/28/2025 12/28/2024 Depression Screening 12/28/2025 12/28/2024, 12/29/19 25 Tobacco Screening 12/28/2025 12/28/2024 Lipid Panel 12/29/2029 12/29/2024, 09/23, 11/17/2023, Additional history exists DTaP/Tdap/Td Vaccines (3 - Td or Tdap) 01/08/2032 01/07/2022, 09/16/2011, 01/17/2007 Pneumococcal Vaccine: 50+ Years Completed 06/27/2015, 09/04/2008 Zoster Vaccines Completed 02/19/2021, 11/24, 09/29/2012 HIB Vaccines Aged Out No longer eligi [...] patient's age to complete this topic Meningococcal B Vaccine Aged Out No l onger eligible based on patient's age to complete [...] 025 11:45 AM EDT) No Khadar Menezes, Violet Procedures Procedure Name Priority Date/Time Associated Diagnosis Comments LIPID PANEL WITH REFLEX TO DIRECT LDL Routine 12/29/2024 1:20 PM EDT Hypercholesterolemi a HEMOGLOBIN A1C Routine 10/05/2024 10:38 AM EDT Impaired fasting glucose from Last 3 Months or Most Recently Relevant to Health Maintenance Results * Lipid Panel with Reflex to Direct LDL (12/29/2024 1:20 PM EDT) Triglycerides 102 <150 mg/dL [facility] Comment:Desirable Triglyceri de: less than 150 mg/dLBorderline High Triglyceride 150-199 mg/dLHigh Triglyceride: 200-499 mg/dLVery High Triglyceride: greater than or equal to 5OO mg/dL Cholesterol 172 <200 mg/dL [facility] Comment:Desirable Cholestero l: less than 200 mg/dLBorderline High Cholesterol: 200-239 mg/dLHigh Cholesterol: greater than 239 mg/dL LDL Cholesterol Calculated 84 <100 mg/dL [facility] Comment:Desirable LDL: less than 100 mg/dLNear Optimal/Above Optimal LDL: 110- 129 mg/dLBorderline High LDL: 130-159 mg/dLHigh LDL: 160-189 mg/dLVery High LDL: greater than or equal to 190 mg/dL HDL Cholesterol 68 >40 mg/dL [facility] Comment:Desirable HDL: great er than 40 mg/dL Note: This HDL assay may give artificially low results in patients with liver disease. Blood 12/29/2024 1:20 PM EDT 12/29/2024 1:20 PM EDT us Marie Sakurai MD LAB BLOOD ORDERABLES Final Resul t Performing Organization Address [facility]/ZIP Co de Phone Number [facility] [address] [place] [address] [phone] * Hemoglobin A1c (10/05/2024 10:38 AM EDT) Hemoglobin A1c 5.8 <6.0 % [facility] Comment:Hemoglobin A1C Refer ence Range Adults: 4.8 - 6.0 % Non diabetic: < 6.0 % Goal: < 7.0 %Additional Action Suggested: > 8.0 %Note: Hemoglobin A1c results are invalid for patients with abnormal amounts of HbF. Blood transfusions may impact the HbA1c concentration in the patient sample. Estimated Average Glucose 120 mg/dL [facility] Comment:eAG = Estimated ave rage glucose which is %A1C expressed asaverage glucose, using the formula of the T0J-RxdudojXwfeket Glucose study (ADAG), Diabetes Care, Vol.31,#8,Feb. 2007 Blood Venous blood specimen / Unknown 10/05/2024 10:38 AM EDT 10/05/2024 10:38 AM EDT Marie Canchola MD LAB BLOOD ORDERABLES Final Resul t Performing Organization Address [facility] Co de Phone Number [facility] [address] [place] [address] [phone] from Last 3 Months or Most Recently Relevant to Health Maintenance Insurance [facility] USP OPTIONS (HMO D-SNP) Care Teams Fishing Captain Relationship Specialty Start Date End Date Marie Canchola MD [address] [place] [id number] PCP - General Family Medicine 07/26/18 Khadar Menezes, PharmD [address] [place] [phone] Pharmacist Internal Medicine 03/31/24
[2025-04-27 14:41] LABS: Anion Gap 10 (12-20); Blood Urea Nitrogen 27 mg/dL (9-16); Calcium 9.3 mg/dL (8.4-10.2); Carbon Dioxide 28 mmol/L (22-29); Chloride 109 mmol/L (96-108); Estimated Glomerular Filt Rate 41; Potassium 4.2 mmol/L (3.3-5.1); Sodium 143 mmol/L (135-145)
== END 2025-04-27 13:14 | disposition home or self-care (01) ==
LOC: HO.LAB 13:13
PROVIDERS: PCP Family Medicine; Visit Provider Internal Medicine Hypertension Specialist
DX: N18.30 Chronic kidney disease, stage 3 unspecified (principal)
CPT/HCPCS: 36415; 80048

== ENCOUNTER 2025-05-01 13:18 | Outpatient (AMB) | payer OTHER, SELFPAY ==
--- NOTE | 2025-05-01 13:38 | HO.NEPHOV_ITS ---
Vital Signs 05/01/25 13:42 Height 4 ft 8 in Weight 176 lb BMI 39.5 BP 140/64 H Blood Pressure Location Rt brachial Position Sitting Pulse 72 Pulse Source Pulse Oximeter Pulse Oximetry (%) 96 Oxygen Delivery Method Room Air Intake Visit Reasons: FU, confirmed Ornamental Plasterer Helper Required: No Ornamental Plasterer Helper Name: [place]ogany [phone] Accompanied by: Son Allergies ciprofloxacin (From Cipro) Allergy (Severe, Verified 05/01/25 13:43) RASH Iodinated Contrast Media (IV Dye, Iodine Containing) Allergy (Intermediate, Verified 05/01/25 13:43) RASH, ITCHY penicillin V Allergy (Mild, Verified 05/01/25 13:43) Unknown Medication List - Last Reconciled 05/01/25 by Jae Avina MD albuterol sulfate 90 mcg/actuation inhalation amlodipine 5 mg PO DAILY aspirin 81 mg PO DAILY atorvastatin 10 mg PO DAILY budesonide-formoterol 80-4.5 mcg/actuation (Symbicort) inhalation PRN cetirizine 5 mg PO BEDTIME cholecalciferol (vitamin D3) (Vitamin D3) 25 mcg PO DAILY levothyroxine 50 mcg PO DAILY losartan 100 mg PO DAILY metoprolol succinate ER 50 mg PO DAILY HPI Comments Details: Elderly woman with a history of longstanding hypertension nephrolithiasis. She is here for regular follow-up. Today she was accompanied by family members. No new complaints. No urinary symptoms. She is compliant with all her medications. Interpretor service was used 12/05/24 84-year-old female presenting with elevated blood pressure. She has difficulty recalling the last instance of seeing her primary care provider, planning to do so on December 28. Her routine blood pressure medications have been reportedly taken, yet her blood pressure remains high. It is noted that she had disrupted sleep, potentially contributing to this elevation. Additionally, the patient rep orts efforts towards managing dietary salt intake to control blood pressure. 05.01.25 - The patient is an 85-year-old female presenting with a routine follow-up for HTN and CKD - Adheres to amlodipine, losartan, and metoprolol with no changes. -No lightheadedness reported. [facility] Medical History (Updated 10/21/23 @ 12:04 by Jae Avina MD) History of kidney stones Osteoporosis Bilateral cataracts Asthma Chronic kidney disease, stage 3 Hyperparathyroidism Hypercholesterolemia HTN (hypertension) History of CVA (cerebrovascular accident) Family History Other HTN (hypertension) History of kidney stones Social History Alcohol intake: never Physical Exam Vital Signs: Last Vital Signs Pulse 72 05/01/25 13:42 BP 140/64 H 05/01/25 13:42 Pulse Ox 96 05/01/25 13:42 Oxygen Delivery Method Room Air 05/01/25 13:42 BMI result Body Mass Index 39.5 Comfortable Neck supple no JVD. Lungs entry equal no rales. Heart S1-S2 heard no gallop or rub. Abdomen soft nontender. Neuro alert awake oriented. No asterixis. Extremities no edema. Results Reviewed Nephrology Results: Sodium, (135-145) 143 mmol/L 04/27/25 Potassium, (3.3-5.1) 4.2 mmol/L 04/27/25 Chloride, (96-108) 109 mmol/L H 04/27/25 Carbon Dioxide, (22-29) 28 mmol/L 04/27/25 BUN, (9-16) 27 mg/dL H 04/27/25 Creatinine, (0.5-1.4) 1.24 mg/dL 04/27/25 Calcium, (8.4-10.2) 9.3 mg/dL Δ 04/27/25 PTH Intact, (8.7-77.1) 81.2 pg/mL H 10/17/24 Renal US 10/25/24 Assessment & Plan Assessment & Plan (1) Chronic kidney disease, stage 3: Code(s): N18.30 - Chronic kidney disease, stage 3 unspecified Category: Medical (2) Hyperparathyroidism: Code(s): E21.3 - Hyperparathyroidism, unspecified Category: Medical (3) History of kidney stones: Comment: surgery [place] stones [place] Code(s): Z87.442 - Personal history of urinary calculi Category: Medical Plan Elderly woman with a history of stage III CKD in a setting of longstanding hypertension nephrolithiasis. She has had hyperparathyroidism with elevated serum calcium in the past. Repeat Calcium is normal She should stay on low-sodium diet. Increase p.o. fluid. Blood pressure be maintained less than 130/80 mm Hg. Creatinine is at baseline BP is better controlled after adding AMlodipine 2.5 mg QD She will benefit from weight loss Orders: Orders Basic Metabolic Panel 6 Months N18.30 - Chronic kidney disease, stage 3 unspecified Coding Level of Care Code Est Pt Level 4 (77915) Diagnoses Chronic kidney disease, stage 3 N18.30 Hyperparathyroidism E21.3 History of kidney stones Z87.442
[2025-05-01 13:42] VITALS: BP 140/64; PULSE 72; O2SAT 96; BMI 39.5
--- OUTSIDE RECORDS SUMMARY | 2025-05-01 16:17 | XMS_ITS | Encounter Summary ---
Author Organization [employer] Address [address] [facility] [address] [place] [address] Care Team Providers Care Staff Engineer Name Role Phone Marie Canchola MD Primary Care Provider [phone] Khadar Menezes PharmD Unavailable [phone] Encounter Details Date Type Department Care Team ([facility] st Contact Info) Description 12/07/2023 Orders Only [facility] [address] [place], [place] [phone] Marie Canchola MD [address] [place], [place] [phone] Social History Tobacco Use Types Packs/Day Years [...] Description 05/17/2025 10:30 AM EDT Medication Management [facility] [address] [place] [phone] Khadar Menezes, Violet [address] [place] [phone] 06/11/2025 1:15 PM EST Office Visit [facility] [address] [place] [phone] Marie Canchola MD [address] [place] [phone] documented as of this encounter Visit Diagnoses Not on filedocumented in this encounter Additional Health Concerns Assessment Noted Time PHQ-9 Depression Total Score: 0 11/16/19 24 1:28 PM EDT documented as of this encounter Care Teams Staff Engineer Relationship Specialty Start Date End Date Marie Canchola MD [address] [place] [phone] PCP - General Family Medicine 07/26/18 Khadar Menezes, PharmD [address] [place] [address] [phone] Pharmacist Internal Medicine 03/31/24 documented as of this encounter
--- OUTSIDE RECORDS SUMMARY | 2025-05-01 16:17 | XMS_ITS | Encounter Summary ---
Author Organization [employer] Address [address] [facility] 7t [place] [address] Care Team Providers Care Developer [employer] Name Role Phone Marie Canchola MD Primary Care Provider [phone] Khadar Menezes PharmD Unavailable [phone] Reason for Visit * Reason Onset Date Comments Appointment Request 12/05/2024 Encounter Details Date Type Department Care Team ([facility] st Contact Info) Description 12/05/2024 Telephone [facility] [address] [place], [place] [phone] Marie Canchola MD [address] [place], [place] [phone] Appointment Request Social History Tobacco Use Types [...] Description 05/17/2025 10:30 AM EDT Medication Management [facility] [address] [place] [phone] Khadar Menezes, PharmD [address] [place] [phone] 06/11/2025 1:15 PM EST Office Visit [facility] [address] [place] [phone] Marie Canchola MD [address] [place] [address] documented as of this encounter Goals Goal [...] documented as of this encounter Care Teams Developer [employer] Systems Relationship Specialty Start Date End Date Marie Canchola MD [address] [place] [address] PCP - General Family Medicine 07/26/18 Khadar Menezes, Violet [address] [place] [phone] Pharmacist Internal Medicine 03/31/24 documented as of this encounter
--- OUTSIDE RECORDS SUMMARY | 2025-05-01 16:17 | XMS_ITS | Clinical Summary ---
Author Organization [employer] Address [address] [facility] 7t [place] [address] Care Team Providers Care Buffing And Polishing Wheel Repairer Name Role Phone Marie Canchola MD Primary Care Provider [phone] Khadar Menezes PharmD Unavailable [phone] Allergies Active Allergy Reactions Criticality Noted Date [...] lesion when pt went to ED in [place] in 2019, Question of multiple myeloma -Seen [...] lesion when pt went to ED in [place] in 2019, Question of multiple myeloma -Seen [...] patients with CKD. Consider alternative -seen by [facility] Endocrinology provider in November 2023. Recommended [...] patients with CKD. Consider alternative -seen by [facility] Endocrinology provider in November 2023. Recommended [...] ACC/AHA guideline -Hx white-coat hypertension -Co-managed with superintendent compressor stations and our pharamcist -Elevated BP today, patient [...] ACC/AHA guideline -Hx white-coat hypertension -Co-managed with superintendent compressor stations and our pharamcist -Elevated BP today, patient reports fluctuating BP -Continue working on lifestyle modifications. -Continue metoprolol succinate 50 mg daily. -Continue losartan 100 mg daily -Continue checking home BP -She will contact us if her home BP is elevated persistently Assessment & Plan (07/03/2024 12:52 PM EST): -Goal BP < 130/80 per ACC/AHA guideline -Hx white-coat hypertension -Co-managed with superintendent compressor stations and our pharamcist -Elevated BP today, patient [...] Plan (12/28/2024 12:47 PM EDT): -Followed by superintendent compressor stations for CKDIII, Hx hyperparathyroidism, hx kidney stone. Last seen in October 2024 -Continue current meds. -Avoid nephrotoxic drugs Assessment & Plan (09/29/2024 12:51 AM EST): -Followed by superintendent compressor stations for CKDIII, Hx hyperparathyroidism, hx kidney stone. Last seen in May 2024 -Continue current meds. -Avoid nephrotoxic drugs Assessment & Plan (07/03/2024 12:53 PM EST): -Followed by superintendent compressor stations for CKDIII, Hx hyperparathyroidism, hx kidney stone. Last seen in May 2024 -Continue current meds. -Avoid nephrotoxic drugs Assessment & Plan (03/13/2024 4:26 PM EDT): -Followed by superintendent compressor stations for CKDIII, Hx hyperparathyroidism, hx kidney stone. Last seen in January 2024, q6m visit. -Continue current meds. -Avoid nephrotoxic drugs Assessment & Plan (11/16/2023 3:00 PM EDT): -Followed by superintendent compressor stations for CKDIII, Hx hyperparathyroidism, hx kidney stone. Last seen in Feb 2023 -Continue current meds. -Avoid nephrotoxic drugs Assessment & Plan (08/22/2023 3:23 PM EST): -Followed by superintendent compressor stations for CKDIII, Hx hyperparathyroidism, hx kidney stone. Last seen in Feb 2023 -Continue current meds. -Avoid nephrotoxic drugs Assessment & Plan (04/26/2023 5:03 AM EDT): -Followed by superintendent compressor stations for CKDIII, Hx hyperparathyroidism, hx kidney stone. Last seen on 03/15/23. -Lab 06/30/21, K 4.4; BUN 29; SCr 1.29; eGFR 40 -Continue current meds. -Avoid nephrotoxic drugs Assessment & Plan (11/03/2022 1:35 PM EDT): -Followed by superintendent compressor stations for CKDIII, Hx hyperparathyroidism, hx kidney stone. -Lab 06/30/21, K 4.4; BUN 29; SCr 1.29; eGFR 40 -Continue current meds. -Avoid nephrotoxic drugs Assessment & Plan (07/26/2022 10:36 AM EST): -Followed by superintendent compressor stations for CKDIII, Hx hyperparathyroidism, hx kidney stone. [...] Encounters Date Type Department Care Team Description 04/27/2025 Orders Only GENERIC EXTERNAL DATA DEPARTMENT Provider, Generic External Data 02/19/2025 Refill [facility] [address] [place] [address] Marie Canchola MD Dyslipidemia 02/16/2025 Refill [facility] [address] [place] [address] Marie Canchola MD from Last 3 Months [...] Description 05/17/2025 10:30 AM EDT Medication Management [facility] [address] [place] [address] Khadar Menezes, PharmD [address] [place], [place] [phone] 06/11/2025 1:15 PM EST Office Visit [facility] [address] [place], [place] [phone] Marie Canchola MD [address] [place] [address] Health Maintenance Due Date Last Done Comments RSV Patients and Patients Aged 60 years or older (1 - 1-dose 75+ series) 01/23/2016 SDOH Screening 11/04/2024 11/05/2023 Influenza Vaccine (#1) 2025 , 06/25/2021, 07/24/2019, Additional history exists COVID-19 Vaccine (2023- season) 2025 09/28/2024, 01/07/2022, 06/25/2021, Additional history exists Diabetes: Hemoglobin A1C 10/05/2025 025, 11/17/2023, 11/05/2022, Additional history exists Alcohol/Substance Use Screening 12/28/2025 12/28/2024 Depression Screening 12/28/2025 12/28/2024, 12/29/19 Tobacco Screening 12/28/2025 12/28/2024 Lipid Panel 12/29/2029 [...] Blood Pressure 170/88( 025 11:45 AM EDT) Khadar Hernández, Violet Procedures Procedure Name Priority Date/Time Associated Diagnosis Comments BASIC METABOLIC PANEL Routine 04/27/2025 1:21 PM EDT LIPID PANEL WITH REFLEX TO DIRECT LDL Routine 12/29/2024 1:20 PM EDT Hypercholesterolemi a HEMOGLOBIN A1C Routine 10/05/2024 10:38 AM EDT Impaired fasting glucose from Last 3 Months or Most Recently Relevant to Health Maintenance Results * (ABNORMAL) Basic Metabolic Panel (04/27/2025 1:21 PM EDT) Sodium 143 135 - 145 mmol/L [facility] Potassium 4.2 3.3 - 5.1 mmol/L [facility] Chloride 109(H) 96 - 108 mmol/L [facility] Carbon Dioxide 28 22 - 29 mmol/L [facility] Anion Gap 10(L) 12 - 20 [facility] Urea Nitrogen (BUN) 27(H) 9 - 16 mg/dL [facility] Creatinine, Serum 1.24 0.5 - 1.4 mg/dL [facility] Estimated Glomerular Filt Rate 41 [facility] Comment:Chronic Kidney Disea se: Estimated GFR < 60 mL/min/1.25k7Pkamum Kidney Disease: Estimated GFR < 15 mL/min/1.73m2 Glucose 96 60 - 115 mg/dL [facility] Calcium 9.3 8.4 - 10.2 mg/dL [facility] 04/27/2025 1:21 PM EDT 04/27/2025 1:21 PM EDT us Generic External Data Provider LAB BLOOD ORDERAB LES Final Result Performing Organization Address [facility]/ZIP Co de Phone Number [facility] [address] [place] [phone] * Lipid Panel with Reflex to Direct LDL (12/29/2024 1:20 PM EDT) Triglycerides 102 <150 mg/dL [facility] Comment:Desirable Triglyceri de: less than 150 mg/dLBorderline High Triglyceride 150-199 mg/dLHigh Triglyceride: 200-499 mg/dLVery High Triglyceride: greater than or equal to 5OO mg/dL Cholesterol 172 <200 mg/dL [facility] Comment:Desirable Cholestero l: less than 200 mg/dLBorderline High Cholesterol: 200-239 mg/dLHigh Cholesterol: greater than 239 mg/dL LDL Cholesterol Calculated 84 <100 mg/dL [facility] Comment:Desirable LDL: less than 100 mg/dLNear Optimal/Above Optimal LDL: 110- 129 mg/dLBorderline High LDL: 130-159 mg/dLHigh LDL: 160-189 mg/dLVery High LDL: greater than or equal to 190 mg/dL HDL Cholesterol 68 >40 mg/dL [facility] Comment:Desirable HDL: great er than 40 mg/dL Note: This HDL assay may give artificially low results in patients with liver disease. Blood 12/29/2024 1:20 PM EDT 12/29/2024 1:20 PM EDT us Marie Canchola MD LAB BLOOD ORDERABLES Final Resul t Performing Organization Address City/[facility]/ZIP Co de Phone Number [facility] [address] [place] [phone] * Hemoglobin A1c (10/05/2024 10:38 AM EDT) Hemoglobin A1c 5.8 <6.0 % [facility] Comment:Hemoglobin A1C Refer ence Range Adults: 4.8 - 6.0 % Non diabetic: < 6.0 % Goal: < 7.0 %Additional Action Suggested: > 8.0 %Note: Hemoglobin A1c results are invalid for patients with abnormal amounts of HbF. Blood transfusions may impact the HbA1c concentration in the patient sample. Estimated Average Glucose 120 mg/dL [facility] Comment:eAG = Estimated ave rage glucose which is %A1C expressed asaverage glucose, using the formula of the H2X-HhnfwtvZxfqakg Glucose study (ADAG), Diabetes Care, Vol.31,#8,2007 Blood Venous blood specimen / Unknown 10/05/2024 10:38 AM EDT 10/05/2024 10:38 AM EDT us Marie Canchola MD LAB BLOOD ORDERABLES Final Resul t [facility] [address] [place] [address] [phone] from Last 3 Months or Most Recently Relevant to Health Maintenance Insurance [id number] SKILLED NURSING OPTIONS (O D-SNP) ARNAV CHARLES [id number] Care Teams Buffing And Polishing Wheel Repairer Relationship Specialty Start Date End Date Marie Canchola MD [address] [place] [phone] PCP - General Family Medicine 07/26/18 Khadar Menezes, PharmD [address] [place] [phone] Pharmacist Internal Medicine 03/31/24
--- OUTSIDE RECORDS SUMMARY | 2025-05-01 16:17 | XMS_ITS | Encounter Summary ---
Author Organization [employer] Address [address] [facility] 7t [place] [address] Care Team Providers Care Ecg Technician Name Role Phone Marie Canchola MD Primary Care Provider [phone] Khadar Menezes PharmD Unavailable Encounter Details Date Type Department Care Team ([facility] st Contact Info) Description 04/27/2025 Orders Only GENERIC EXTERNAL DATA [...] Description 05/17/2025 10:30 AM EDT Medication Management [facility] [address] [place] [address] Khadar Menezes, PharmD [address] [place] [address] 06/11/2025 1:15 PM EST Office Visit [facility] [address] [place], [place] [phone] Marie Canchola MD [address] [place], [place] [phone] documented as of this encounter Goals Goal Patient Goal Type Associated Problems Recent Progress Patient-Stated? Author Blood Pressure < 140/90 Blood Pressure 170/88( 025 11:45 AM EDT) No Khadar Menezes, PharmD documented as of this encounter Procedures Procedure Name Priority Date/Time Associated Diagnosis Comments BASIC METABOLIC PANEL Routine 04/27/2025 1:21 PM EDT documented in this encounter Results * (ABNORMAL) Basic Metabolic Panel (04/27/2025 1:21 PM EDT) Sodium 143 135 - 145 mmol/L [facility] Potassium 4.2 3.3 - 5.1 mmol/L [facility] Chloride 109(H) 96 - 108 mmol/L [facility] Carbon Dioxide 28 22 - 29 mmol/L [facility] Anion Gap 10(L) 12 - 20 [facility] Urea Nitrogen (BUN) 27(H) 9 - 16 mg/dL [facility] Creatinine, Serum 1.24 0.5 - 1.4 mg/dL [facility] Estimated Glomerular Filt Rate 41 [facility] Comment:Chronic Kidney Disea se: Estimated GFR < 60 mL/min/1.90v2Leaimq Kidney Disease: Estimated GFR < 15 mL/min/1.73m2 Glucose 96 60 - 115 mg/dL [facility] Calcium 9.3 8.4 - 10.2 mg/dL [facility] 04/27/2025 1:21 PM EDT 04/27/2025 1:21 PM EDT us Generic External Data Provider LAB BLOOD ORDERAB LES Final Result [facility] [address] [place] [phone] documented in this encounter Visit Diagnoses Not on filedocumented in this encounter Additional Health Concerns Assessment Noted Time PHQ-9 Depression Total Score: 0 12/29/19 25 11:43 AM EDT documented as of this encounter Care Teams Ecg Technician Relationship Specialty Start Date End Date Marie Canchola MD [address] [place] [address] PCP - General Family Medicine 07/26/18 Khadar Menezes, SandraD [address] [place] [address] Pharmacist Internal Medicine 03/31/24 documented as of this encounter
--- OUTSIDE RECORDS SUMMARY | 2025-05-01 16:17 | XMS_ITS | Clinical Summary ---
Author Organization [facility] Address [address] [place] [address] Phone Care Team Providers Care [employer] Name Role Phone Unavailable Primary Care Provider [...] lesion when pt went to ED in [place] in 2019, Question of multiple myeloma -Seen [...] (03/12/2023): Last Assessment & Plan: -Followed by auto research engineer for CKDIII, Hx hyperparathyroidism, hx kidney stone. [...] Date Last Done Comments Influenza Vaccine (#1) 2025 , 07/24/2019, 08/11/2018, Additional history exists Pneumococcal Vaccine: 50+ Years Completed 06/27/2015, 09/04/2008 Pneumococcal Vaccine: Peds (0 to 5 Years) and At-Risk Patients (6 to 49 Years) Discontinued 06/27/2015, 09/04/2008 Hepatitis B Vaccine Aged Out No longe r eligible based on patient's age to complete this topic Insurance [facility] ([id number]) [facility] MCR ([id number])
--- OUTSIDE RECORDS SUMMARY | 2025-05-01 16:17 | XMS_ITS | Encounter Summary ---
Author Organization [employer] Address [address] [facility] 7t [place] [address] Care Team Providers Care Clinical Safety Manager Name Role Phone Marie Canchola MD Primary Care Provider [phone] Khadar Menezes PharmD Unavailable [phone] Reason for Referral * Consultation (Routine) - Authorized Specialty Diagnoses / Procedures Referred By Contac t Referred To Contact Pharmacy Diagnoses Essential hypertension Marie Canchola MD [address] [place] [address] Phone: tel: fax: Referral ID Status Reason Start Date Expiration Date Visits Requested Visits Authorized [id number] Authorized Consult and Treat 12/07/2024 12/07/2025 6 6 Encounter Details Date Type Department Care Team ([facility] st Contact Info) Description 12/07/2024 Orders Only [facility] [address] [place] [phone] Marie Canchola MD [address] [place], [place] [phone] Essential hypertension (Primary Dx) Social History Tobacco [...] Description 05/17/2025 10:30 AM EDT Medication Management [facility] [address] [place] [phone] Khadar Menezes, SandraD [address] [place] [phone] 06/11/2025 1:15 PM EST Office Visit [facility] [address] [place] [phone] Marie Canchola MD [address] [place] [phone] Scheduled Referrals Name Type Priority Associated Diagnoses [...] documented as of this encounter Care Teams Clinical Safety Manager Relationship Specialty Start Date End Date Marie Canchola MD [address] [place] [address] PCP - General Family Medicine 07/26/18 Khadar Menezes, PharmD [address] [place] [address] Pharmacist Internal Medicine 03/31/24 documented as of this encounter
--- OUTSIDE RECORDS SUMMARY | 2025-05-01 16:17 | XMS_ITS | Encounter Summary ---
Author Organization [employer] Address [address] [facility] 7t [place] [address] Care Team Providers Care Rent Control Office Manager Name Role Phone Marie Canchola MD Primary Care Provider Khadar Menezes PharmD Unavailable [phone] Reason for Visit * Reason Comments Med Refill Encounter Details Date Type Department Care Team ([facility] st Contact Info) Description 02/19/2025 Refill [facility] [address] [place], [place] [phone] Marie Canchola MD [address] [place], [place] [phone] Dyslipidemia Social History Tobacco Use Types Packs/Day [...] Description 05/17/2025 10:30 AM EDT Medication Management [facility] [address] [place] [phone] Khadar Menezes PharmD [address] [place] [phone] 06/11/2025 1:15 PM EST Office Visit [address] [phone] Marie Canchola MD [address] [place] [phone] documented as of this encounter Goals Goal [...] documented as of this encounter Care Teams Rent Control Office Manager Relationship Specialty Start Date End Date Marie Canchola MD [address] [place] [phone] PCP - General Family Medicine 07/26/18 Khadar Menezes PharmD [address] [place] [address], [place] [phone] Pharmacist Internal Medicine 03/31/24 documented as of this encounter
== END 2025-05-01 13:52 | disposition home or self-care (01) ==
LOC: HO.HKA 13:19
PROVIDERS: PCP Family Medicine; Visit Provider Internal Medicine Hypertension Specialist
DX: N18.30 Chronic kidney disease, stage 3 unspecified (principal); E21.3 Hyperparathyroidism, unspecified; Z87.442 Personal history of urinary calculi
CPT/HCPCS: 99214

== ENCOUNTER → 2025-05-01 13:18 | Outpatient (BNVA) | payer OTHER, SELFPAY | PROVIDERS: PCP Family Medicine; Visit Provider Internal Medicine Hypertension Specialist | DX: E21.3 Hyperparathyroidism, unspecified (principal); I10 Essential (primary) hypertension; N18.30 Chronic kidney disease, stage 3 unspecified; Z87.442 Personal history of urinary calculi | CPT/HCPCS: 99212 ==